=== PATIENT | female | born 1960 | race Asian ===

== ENCOUNTER → 2017-07-28 10:30 | Outpatient (CLI) | payer OTHER, SELFPAY ==
[2017-07-28 11:55] LABS: ALB/GLOB Ratio 0.9 RATIO (0.9-2.4); AST(SGOT) 23 U/L (15-37); Alanine Aminotransfer ALT/SGPT 24 U/L (13-56); Albumin, Serum 3.6 g/dL (3.2-5.0); Alkaline Phosphatase 65 U/L (45-117); Anion Gap 7 (5-15); BUN 11 mg/dL (7-18); Calcium,Total 8.7 mg/dL (8.5-10.1); Chloride 107 mmol/L (98-107); Cholesterol 189 mg/dL (200); Creatinine, Serum 0.84 mg/dL (0.55-1.02); EST Glomerular Filtration Rate 74 mL/min (>60); Est Glom Filt Rate - Afr Amer 90 mL/min (>60); Glucose 95 mg/dL (74-106); High Density Lipoprotein 69 mg/dL; Potassium 4.1 mmol/L (3.5-5.1); Protein, Total 7.6 g/dL (6.4-8.2); Sodium Level 144 mmol/L (136-145); Thyroid Stim Hormone (TSH) 1.06 uIU/mL (0.358-3.74); Triglycerides 95 mg/dL; Very Low Density Lipoprotein 19 mg/dL (5-40)
== END ==
PROVIDERS: Family Provider Family Medicine; PCP Family Medicine; Visit Provider Family Medicine
DX: E78.5 Hyperlipidemia, unspecified (principal); E89.0 Postprocedural hypothyroidism
CPT/HCPCS: 36415; 80053; 80061; 84443

== ENCOUNTER → 2018-03-18 13:19 | Outpatient (CLI) | payer OTHER, SELFPAY ==
[2018-03-18 10:37] VITALS: BMI 28.4
--- OUTSIDE RECORDS SUMMARY | 2018-05-13 17:49 | XMS RPT_ITS ---
:1960 Author Organization [facility] Care Team Providers Name Role Phone BROWN, ALLISON Attending Unavailable BROWN, ALLISON Primary Care Unavailable Brown, Allison Attending Unavailable Brown, Allison Referring Unavailable Brown, Allison Attending Unavailable Brown, Allison Referring Unavailable Brown, Allison Primary Care Unavailable Brijesh Contrerasongbe Attending Unavailable Brown, Allison Referring Unavailable Brown, Allison Primary Care Unavailable GarciaYuri MANAGER AUDIO-C Attending Unavailable Brown, Allison Referring Unavailable Brown, Allison Primary Care Unavailable Garcia, Yuri MANAGER AUDIO-C Attending Unavailable Brown, Allison Referring Unavailable GarciaYuri MANAGER AUDIO-C Attending Unavailable Garcia, Yuri MANAGER AUDIO-C Referring Unavailable Brown, Allison Primary Care Unavailable PROBLEMS PROBLEMS DATE TYPE CONDITION / CODE ATTENDING STATUS SOURCE 03/18/2018 Unknown J02.9 - Acute Yuri Garcia Active [place] pharyngitis, MANAGER AUDIO-C Community unspecified / Hospital J02.9(ICD-10) Repository 10/20/2017 Unknown N75.0 - Cyst of Oleghe, Active [place] Bartholin's gland [facility] / N75.0(ICD-10) Hospital Repository PROCEDURES PROCEDURES No Procedure Records FoundRESULTS RESULTS Observed: 03/18/2018 Status: F Source: [place] CULTURE, THROAT 1:30 PM [facility] REPOSITORY Culture, Throat Mixed normal throat mikaela. No Haemophilus, Streptococcus pneumoniae, beta-hemolytic Streptococcus or Staphylococcus aureus isolated. Performed By: #### M100.1000 #### [facility] [address], [address] INTERNAL MEDICINE Observed: 03/18/2018 Status: F Source: [place] OFFICE VISIT 11:35 AM [facility] REPOSITORY [facility] [address] [place] [address] OFFICE VISIT Date of Service: 03/18/18 MR#: [id number] Acct: [id number] Name: VIVIAN MONTESINOS Rep #: [id number] : 1960 Provider: Yuri Garcia NP Age/Sex: 57/F Location: [facility] Status: Signed Intake Vital Signs03/18/18 Height 5 ft 1 in 03/18/18 Weight: 150 lb 8 oz Intake Visit Reasons: ST Chief Complaint: Cough and sore throat Oil Heat Technician Required: No Accompanied by: None Is patient in pain?: No Allergies No Known Allergies Allergy (Unverified 07/28/17 09:29) Medications multivitamin tablet 1 tab PO QAM 07/28/17 [History Confirmed 07/28/17] simvastatin 10 mg tablet 10 mg PO QPM #90 tab 08/25/17 [Rx] cyanocobalamin (vitamin B-12) 2,500 mcg tablet 2,500 mcg PO QDAY 10/20/17 [History Confirmed 10/20/17] prednisone 10 mg tablet See Rx Instructions PO QDAY #30 tab 11/10/17 [Rx Confirmed 11/10/17] benzonatate 100 mg capsule 100 mg PO TID PRN #30 cap 03/18/18 [Rx Confirmed 03/18/18] fluticasone 50 mcg/actuation nasal spray,suspension 2 spray INTRANASAL DAILY #15.8 g 03/18/18 [Rx Confirmed 03/18/18] ibuprofen 600 mg tablet 600 mg PO TID PRN #30 tab 03/18/18 [Rx Confirmed 03/18/18] PFSH Medical History Hyperlipidemia (Chronic) Surgical History History of thyroidectomy, subtotal (Acute) Family History Father Hypertension Kidney disease Mother Lung cancer Uncle Liver cancer Brother Liver cancer Social History Smoking Status: Never smoker alcohol intake: current alcohol intake frequency: holidays/special occasions only substance use type: does not use what type of physical activity do you participate in: weight training frequency: daily HPI HPI Chief Complaint: Cough and sore throat Details: VVIIAN MONTESINOS, is a 57 F who presents to the office today for 3-day history of sore throat with nonproductive cough, nasal congestion and clear nasal discharge. She has a past medical history as listed above. Patient states that she has had nasal congestion for 3 days and progressed to a sore throat. She states that she has been using Advil for pain and discomfort with mild relief. She has been experiencing some chills for the last 3 days and is treated with Advil. She denies headache, dizziness or difficulty sleeping. She states her nasal discharge is clear. She denies any sick contacts. She denies any other aggravating or relieving factors. The patient otherwise denies any fever, chills, nausea, vomiting, shortness of breath, chest pain or pressure, palpitations, orthopnea, lower extremity edema, syncope or presyncopal episodes. ROS Const Constitutional: Positive for chills; no body ache, fatigue, fever(s), frequent falls, headache(s), weight change, sleep problems, change in appetite, snoring, excessive sweating, weakness or night sweats Eyes Eyes: No blurry vision, change in vision, eye pain or light sensitivity ENT ENT: Positive for nasal congestion, nasal discharge and sore throat; no headache(s), abnormal hearing, ear pain, tinnitus or neck pain Resp Respiratory: Positive for cough; no snoring, shortness of breath or wheezing Cardio Cardiology: No excessive sweating, chest pain at rest, chest pain with exertion, shortness of breath, dyspnea on exertion, orthopnea, palpitations or lightheadedness Gastro GI: No abdominal pain, change in bowel habits, diarrhea, constipation, vomiting, nausea/dyspepsia or cramping Genitourinary-Female: No difficulty urinating, burning urination, painful urination, urinary frequency, urinary urgency, urinary incontinence, blood in urine, urinary retention or urinary hesitancy Musc Musculoskeletal: No neck pain, abnormal walking, joint pain, back pain, limited range of motion, numbness, tingling or muscle weakness Skin Skin: No redness, dry skin, itching, lesions, wounds or rash Neuro Neurology: No frequent falls, headache(s), weakness, abnormal hearing, abnormal walking, numbness, tingling, abnormal speech, dizziness or memory loss Psych Psychiatric: No change in appetite, No memory loss, No anxiety, No depression, No Thoughts of harming yourself/Others Endo Endocrine: No fatigue, excessive sweating, cold intolerance, increased thirst/drinking, heat intolerance, increased hunger or flushing Aller/Imm Allergy/Immunologic: No wheezing, itchy eyes, seasonal allergy symptoms or hives Slava/Lymp Hematologic/Lymphatic: No easy bleeding, easy bruising or enlarged lymph nodes Exam Const General: cooperative, comfortable, no acute distress Nutritional Appearance: average body habitus, well nourished Orientation: alert, oriented x3 Limitations: mental status not altered HENMT Head: normal to inspection, normocephalic, atraumatic Ears: hearing grossly normal bilaterally, external ears normal, TM abnormal dull bilaterally, other (ear canals slightly erythematous) Nose: mucous membranes and turbinates abnormal (edematous) erythematous, external nose normal, nasal discharge clear Face and sinus: normal facial exam, sinuses nontender Mouth: oral mucosae normal Throat: posterior oropharynx abnormal edema and erythema; Negative for no exudates Eyes General: appearance normal, both eyes and all related structures Neck Neck: no lymphadenopathy Resp Effort AND Inspection: normal respiratory effort, able to speak in complete sentences, normal respiratory pattern, symmetric chest movement, no audible wheezes, no cough Auscultation: Bilateral: Clear to Auscultation Cardio Palpation: normal PMI Rate: regular rate Heart Sounds: S1 normal, S2 normal, normal S1 and S2, no click, no gallops, no murmurs, no rubs GI Inspection: normal to inspection Auscultation: normal bowel sounds, no hyperactive bowel sounds, no hypoactive bowel sounds Palpation: soft, no hepatosplenomegaly Musc Musculoskeletal: No joint tenderness, decreased ROM or muscle weakness Skin General: no rashes or lesions noted, elasticity normal, turgor normal Lesions: no lesions Rashes: no rashes Neuro General: alert, awake, oriented x3, CN's II-XI intact bilaterally Speech: speech normal Gait: normal gait Motor: muscle tone normal throughout Extrem General: normal to inspection, normal gait, no edema, no pedal edema Psych Appearance: grossly normal Mental Status: mental status grossly normal Affect: normal affect Attitude: cooperative Thought Process: normal Assessment AND Plan Problems 1. Acute pharyngitis J02.9 2. Cough R05 Plan Patient symptoms are consistent with that of acute viral pharyngitis. A rapid strep in the office today was negative. Will send backup culture for evaluation. Will treat supportively at this time with Tessalon for cough, Flonase for nasal congestion and ibuprofen for sore throat. Discussed increasing fluids and rest. Discussed hand hygiene and prevention of transmission of illness. Discussed red flag symptoms requiring urgent medical attention. Parison disclaimer Orders Orders: Medications New: Plan Detail Follow Up As previously scheduled or sooner Coding Level of Care Code Off vis,est,level 3 Diagnoses Acute pharyngitis J02.9 Cough R05 03/18/18 1135 <Electronically signed by Yuri SANCHEZ> Date Yuri SANCHEZ Cosigner Signature: Date (if applicable) CC: INTERNAL MEDICINE Observed: 11/10/2017 Status: F Source: [place] OFFICE VISIT 3:17 PM [facility] [address] [address] OFFICE VISIT Date of Service: 11/10/17 MR#: [id number] Acct: [id number] Name: VIVIAN MONTESINOS Rep #: [id number] : 1960 Provider: Yuri Garcia NP Age/Sex: 57/F Location[place] [facility] Status: Signed Intake Vital Signs11/10/17 Height 5 ft 1 in 11/10/17 Weight: 153 lb 2 oz Intake Visit Reasons: ITCHING, THINKS ALLERGIC REACTION TO SOMETHING Chief Complaint: Itching, allergies, rash Oil Heat Technician Required: No Accompanied by: None Is patient in pain?: No Allergies No Known Allergies Allergy (Unverified 07/28/17 09:29) Medications multivitamin tablet 1 tab PO QAM 07/28/17 [History Confirmed 07/28/17] simvastatin 10 mg tablet 10 mg PO QPM #90 tab 08/25/17 [Rx] cyanocobalamin (vitamin B-12) 2,500 mcg tablet 2,500 mcg PO QDAY 10/20/17 [History Confirmed 10/20/17] prednisone 10 mg tablet See Label Instructions PO QDAY #30 tab 11/10/17 [Rx Confirmed 11/10/17] PFSH Medical History Hyperlipidemia (Chronic) Surgical History History of thyroidectomy, subtotal (Acute) Family History Father Hypertension Kidney disease Mother Lung cancer Uncle Liver cancer Brother Liver cancer Social History Smoking Status: Never smoker alcohol intake: current alcohol intake frequency: holidays/special occasions only substance use type: does not use what type of physical activity do you participate in: weight training frequency: daily HPI HPI Chief Complaint: Itching, allergies, rash Details: VIVIAN MONTESINOS, is a 57 F who presents to the office today for an acute visit of allergies and rash 5-6 days but is progressively worsening. She is a past medical history as listed above. The patient notes that she was out gardening about a week ago and shortly after noted a diffuse rash that started on her bilateral legs and is now on her chest and left upper arm. She describes the rash as itching. She states that she has used avhw-cle-zxhxvld IV dry with mild relief. She also states that she has taken Benadryl at night and this is helped somewhat with the itching. However she states that the rash is progressively worsening. She does also note that she has some nasal discharge clear and itchy eyes at time as well. She also notes that she is getting over a sore throat and cough as well. She denies any sick contacts and denies any other aggravating or relieving factors. She otherwise denies any fever, chills, nausea, vomiting, shortness of breath, chest pain or pressure, syncope or presyncopal episodes. ROS Const Constitutional: No body ache, chills, fatigue, fever(s), frequent falls, headache(s), weight change, sleep problems, change in appetite, snoring, excessive sweating or weakness Eyes Eyes: No blurry vision, change in vision, eye pain or light sensitivity ENT ENT: Positive for nasal discharge and sore throat; no headache(s), abnormal hearing, ear pain, tinnitus, nasal congestion or neck pain Resp Respiratory: Positive for cough; no snoring, shortness of breath or wheezing Cardio Cardiology: No excessive sweating, chest pain at rest, chest pain with exertion, shortness of breath, dyspnea on exertion, orthopnea, palpitations or lightheadedness Gastro GI: No abdominal pain, change in bowel habits, diarrhea, constipation, vomiting, nausea/dyspepsia or cramping Genitourinary-Female: No difficulty urinating, burning urination, painful urination, urinary frequency, urinary urgency, urinary incontinence, blood in urine, urinary retention or urinary hesitancy Musc Musculoskeletal: No neck pain, abnormal walking, joint pain, back pain, limited range of motion, numbness or tingling Skin Skin: Positive for itching and rash; no redness, dry skin, lesions or wounds Neuro Neurology: No frequent falls, headache(s), weakness, abnormal hearing, abnormal walking, numbness, tingling, abnormal speech, dizziness or memory loss Psych Psychiatric: No change in appetite, No memory loss, No anxiety, No depression, No Thoughts of harming yourself/Others Endo Endocrine: No fatigue, excessive sweating, cold intolerance, increased thirst/drinking, heat intolerance, increased hunger or flushing Aller/Imm Allergy/Immunologic: Positive for itchy eyes and seasonal allergy symptoms; no wheezing or hives Slava/Lymp Hematologic/Lymphatic: No easy bleeding, easy bruising or enlarged lymph nodes Exam Const General: cooperative, comfortable, no acute distress Nutritional Appearance: average body habitus, well nourished Orientation: alert, oriented x3 Limitations: mental status not altered HENMT Nose: mucous membranes and turbinates abnormal erythematous Resp Effort AND Inspection: normal respiratory effort, able to speak in complete sentences, normal respiratory pattern, symmetric chest movement, no audible wheezes, no cough Auscultation: Bilateral: Clear to Auscultation Cardio Palpation: normal PMI Rate: regular rate Heart Sounds: S1 normal, S2 normal, normal S1 and S2, no click, no gallops, no murmurs, no rubs Skin Other: Diffuse clusters of fluid-filled vesicles consistent with that of poison ebenezer dermatitis present bilateral posterior lower extremities and left upper extremity and chest, no signs of secondary infection at this time. Visible scratch holliday surrounding sites present as well. Extrem General: normal to inspection, normal gait, no edema, no pedal edema Psych Appearance: grossly normal Mental Status: mental status grossly normal Affect: normal affect Attitude: cooperative Thought Process: normal Assessment AND Plan Problems 1. 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 Allergic rhinitis J30.9 Plan The patient's symptoms are consistent with that of poison ebenezer dermatitis. Patient instructed that she may continue with her zbnd-trt-qlwycks IV dry that she purchased, patient will be treated with tapering dose of prednisone. Discussed continue with Benadryl at night as this will make her tired and taking a nondrowsy antihistamine such as Claritin in the morning. Did discuss on how to take the prednisone and potential side effects of the medication. Patient verbalized understanding. Did instruct with antihistamines this will help improve her allergic rhinitis as well. Discussed with patient to follow-up with our office if her condition progresses or worsens. Did discuss red flag signs and symptoms that require urgent medical attention patient verbalized understanding. Isaias disclaimer Medications New: prednisone 4 tabs for 3 days, then 3 tabs for 3 days, then 2 tabs for 3 days, then 1 tab f or 3 days PO QDAY; administer with food or milk Coding Level of Care Code Off vis,est,level 3 Diagnoses Poison ebenezer dermatitis L23.7 Allergic rhinitis J30.9 11/10/17 1517 <Electronically signed by Yuri SANCHEZ> Date Yuri SANCHEZ Cosigner Signature: Date (if applicable) CC: INTERNAL MEDICINE Observed: 10/23/2017 Status: F Source: [place] OFFICE VISIT 12:43 PM [facility] [address] [place] [address] [address] [place] [address] OFFICE VISIT Date of Service: 10/20/17 MR#: [id number] Acct: [id number] Name: VIVIAN MONTESINOS Rep #: [id number] : 1960 Provider: Kye Contreras MD Age/Sex: 57/F Location: [facility] Status: Signed Intake Vital Signs10/20/17 Height 5 ft 1 in Intake Visit Reasons: acute visit, vaginal lesion Chief Complaint: Vaginal swelling. Is patient in pain?: No Allergies No Known Allergies Allergy (Unverified 07/28/17 09:29) Medications multivitamin tablet 1 tab PO QAM 07/28/17 [History Confirmed 07/28/17] simvastatin 10 mg tablet 10 mg PO QPM #90 tab 08/25/17 [Rx] cyanocobalamin (vitamin B-12) 2,500 mcg tablet 2,500 mcg PO QDAY 10/20/17 [History Confirmed 10/20/17] PFSH Medical History Hyperlipidemia (Chronic) Surgical History History of thyroidectomy, subtotal (Acute) Family History Father Hypertension Kidney disease Mother Lung cancer Uncle Liver cancer Brother Liver cancer Social History Smoking Status: Never smoker alcohol intake: current alcohol intake frequency: holidays/special occasions only substance use type: does not use what type of physical activity do you participate in: weight training frequency: daily HPI HPI Chief Complaint: Vaginal swelling. Details: VIVIAN MONTESINOS, is a 57yo F who presents to the office today due to right sided vaginal swelling noted about 3 weeks ago. She denies any significant pain/ discomfort or vaginal discharge. ROS Const Constitutional: No weight change, body ache, chills, fatigue, sleep problems, fever(s), change in appetite, snoring, weakness, frequent falls, headache(s) or excessive sweating Eyes Eyes: No change in vision, eye pain, light sensitivity or blurry vision ENT ENT: No headache(s), abnormal hearing, ear pain, tinnitus, nasal congestion, sore throat or neck pain Resp Respiratory: No snoring, cough, shortness of breath or wheezing Cardio Cardiology: No excessive sweating, chest pain at rest, chest pain with exertion, shortness of breath, dyspnea on exertion, palpitations, orthopnea or lightheadedness Gastro GI: No abdominal pain, change in bowel habits, constipation, diarrhea, vomiting, nausea/dyspepsia or cramping Genitourinary-Female: Positive for other (vaginal bump); no burning urination, painful urination, urinary incontinence, urinary frequency, abnormal vaginal bleeding or pelvic pain Musc Musculoskeletal: No neck pain, abnormal walking, joint pain, back pain, limited range of motion, numbness or tingling Skin Skin: No redness, dry skin, itching, lesions, wounds or rash Neuro Neurology: No weakness, frequent falls, headache(s), abnormal hearing, abnormal walking, numbness, tingling, abnormal speech, dizziness or memory loss Psych Psychiatric: No change in appetite, No memory loss, No anxiety, No depression, No Thoughts of harming yourself/Others Endo Endocrine: No fatigue, excessive sweating, cold intolerance, increased thirst/drinking, heat intolerance, flushing or increased hunger Aller/Imm Allergy/Immunologic: No wheezing, itchy eyes, hives or seasonal allergy symptoms Slava/Lymp Hematologic/Lymphatic: No easy bleeding, easy bruising or enlarged lymph nodes Exam Const General: cooperative, no acute distress Orientation: alert, awake, oriented x3 HENIN Head: atraumatic, normocephalic Ears: hearing grossly normal bilaterally Resp Effort AND Inspection: normal respiratory effort, able to speak in complete sentences Auscultation: Bilateral: Clear to Auscultation Cardio Rate: regular rate Rhythm: regular rhythm Heart Sounds: S1 normal, S2 normal Other: Right sided firm vaginal swelling. Non tender. Neuro General: alert, awake, oriented x3, moves all extremities, CN's II-XI intact bilaterally Extrem General: no clubbing, cyanosis or edema Psych Appearance: grossly normal Mood: congruent mood Affect: normal affect Assessment AND Plan 1. Bartholin gland cyst N75.0 Plan Does not appear infected. Also said to be improving per patient. Sitz bath and warm compresses. Refer to Spa Assistant Manager. Orders Referrals: Coding Level of Care Code Off vis,est,level 3 Diagnoses Bartholin gland cyst N75.0 10/23/17 1243 <Electronically signed by Kye Contreras MD> Date Kye Contreras MD Cosigner Signature: Date (if applicable) CC: KATIE MAMMOGRAM SCREENING Observed: 08/11/2017 Status: F Source: [facility] W/[facility]ANNA[facility] 4:00 PM F[facility]ATION REPOSITORY ORIGINAL FROM: [place] [id number] PROCEDURE FOR: VIVIAN MONTESINOS [address] [facility] [place] [address] Home: PID#: [id number] Exam#: [id number] : 1960 Age: 57 TO: ALLISON ORO DO [address] [place], [place] [address] #[id number] DIGITAL SCREENING MAMMOGRAM 3D/2D WITH CAD WITH MEDIOLATERAL OBLIQUE CRANIOCAUDAL: 08/11/2017 Comparison is made to exams dated: 07/09/2016 mammogram and 04/15/2013 mammogram - [facility]. There are scattered fibroglandular elements in both breasts. Current study was also evaluated with a Computer Aided Detection (CAD) system. No significant masses, calcifications, or other findings are seen in either breast. There has been no significant interval change. IMPRESSION: NEGATIVE There is no mammographic evidence of malignancy. A 1 year screening mammogram is recommended. HARIS BOYD MD cc/penrad:08/12/2017 16:20:36 It Account Manager: SIMON BRADSHAW (R)(M), [facility] letter sent: Normal BI-RADS 1&2 Mammogram BI-RADS: 1 Negative INTERNAL MEDICINE Observed: 07/28/2017 Status: F Source: [place] OFFICE VISIT 12:24 PM [facility] [address] [place] [address] OFFICE VISIT Date of Service: 07/28/17 MR#: [id number] Acct: [id number] Name: VIVIAN MONTESINOS Rep #: [id number] : 1960 Provider: Allison Oro DO Age/Sex: 57/F Location[place] [facility] [place] Status: Signed Intake Vital Signs07/28/17 Height 5 ft 1 in 07/28/17 Weight: 158 lb 07/28/17 Body Mass Index (BMI) 29.8 07/28/17 Blood Pressure 114/77 Intake Visit Reasons: EST Chief Complaint: Inject finger, AND Pap Is patient in pain?: No Allergies No Known Allergies Allergy (Unverified 07/28/17 09:29) Medications multivitamin tablet 1 tab PO QAM 07/28/17 [History Confirmed 07/28/17] simvastatin 10 mg tablet 10 mg PO QPM 07/28/17 [History Confirmed 07/28/17] Post menopausal: Yes PFSH Medical History Hyperlipidemia (Chronic) Surgical History History of thyroidectomy, subtotal (Acute) Family History Father Hypertension Kidney disease Mother Lung cancer Uncle Liver cancer Brother Liver cancer Social History Smoking Status: Never smoker alcohol intake: current alcohol intake frequency: holidays/special occasions only substance use type: does not use what type of physical activity do you participate in: weight training frequency: daily HPI HPI Chief Complaint: Inject finger, AND Pap Details: VIVIAN MONTESINOS, is a 57 F who presents to the office today for a pap smear, and also for an injection of a right trigger finger. I explained that she does not need a pap smear as it has been only two years for ROS Const Constitutional: No anorexia, body ache, chills, fever(s), decreased energy, malaise, night sweats, weight change, sleep problems, other, snoring, weakness, frequent falls, headache(s), abnormal sleep pattern, change in appetite, excessive sweating or fatigue Eyes Eyes: No blurry vision, change in vision, double vision, discharge, dry eyes, bulging eyes, floaters, eye pain, light sensitivity, spots in vision, tunnel vision, other or visual disturbances ENT ENT: Positive for sore throat; no ear pain, ear discharge, ear pressure, hearing loss, tinnitus, dizziness/vertigo, balance problems, nosebleed/epistaxis, nasal congestion, nasal obstruction, nose pain, sinus pressure, sinus pain, nasal discharge, post nasal drip, facial pain, dental pain, dry mouth, bad breath, hoarseness, mouth lesions, mouth pain, difficulty swallowing, neck pain, abnormal hearing, headache(s), other, lip swelling, throat swelling or tongue swelling Resp Respiratory: No cough, change in phlegm color, chest congestion, excessive phlegm production, hemoptysis, pain on inspiration, shortness of breath, pain with cough, snoring, stridor, other or wheezing Cardio Cardiology: No chest pain at rest, chest pain with exertion, leg pain with exertion, shortness of breath, dyspnea on exertion, generalized swelling, irregular heart rhythm, lightheadedness, orthopnea, radiating jaw, neck or arm pain, fast heart rate, slow heart rate, palpitations, other or excessive sweating Gastro GI: No abdominal pain, belching, bloating, change in bowel habits, change in stool character, coffee ground emesis, constipation, cramping, diarrhea, heartburn, difficulty swallowing, feeling full early, excessive flatus, incontinent of stools, Vomiting blood/hematemesis, blood in stool, loose stools, Black,tarry stools, nausea/dyspepsia, pain with swallowing, vomiting or other Genitourinary-Female: No difficulty urinating, burning urination, painful urination, urinary incontinence, urinary frequency, urinary urgency, urinary hesitancy, urinary retention, blood in urine, Frequent nighttime urination/ nocturia, post void dribbling, suprapubic fullness, side pain, sexual problems, genital lesions, genital itching, hot flashes, abnormal periods, abnormal vaginal bleeding, absent period, painful periods, light periods, heavy periods, difficulty getting , painful intercourse, pelvic pain, vaginal dryness, vaginal odor, Vaginal Itching or other Musc Musculoskeletal: Positive for joint swelling (Left wrist, AND Rt 3rd finger); no joint pain, back pain, deformity, limited range of motion, loss of height, muscle cramps, muscle weakness, decreased muscle mass, body aches, neck pain, radiating pain into limb, stiffness, other, abnormal walking, numbness or tingling Skin Skin: Positive for lesions (Brown patches Lt ankle); no acne, hair loss, change in hair, nail changes, boil, change in skin color, dry skin, redness, excessive hair growth, yellowing of the skin, rash, skin pain, skin ulcer, sores, skin swelling, wounds, other or itching Breast Breast: No change in breast shape, breast lump, breast pain, breast skin changes, breast swelling, nipple discharge or other Neuro Neurology: No abnormal walking, abnormal hearing, abnormal movements, abnormal speech, unsteady gait/balance, dizziness, weakness, frequent falls, headache(s), lack of coordination, loss of vision, numbness, tingling, visual disturbances, restless legs, fainting, tremor(s), other, behavioral changes, confusion or memory loss Psych Psychiatric: No abnormal sleep pattern, No lack of enjoyment, No anxiety, No behavioral changes, No change in appetite, No confusion, No depression, No difficulty concentrating, No hopelessness, No irritability, No memory loss, No mood swings, No panic attacks, No paranoia, No Thoughts of harming yourself/Others, No hallucinations, No other Endo Endocrine: No change in body appearance, cold intolerance, excessive sweating, fatigue, flushing, heat intolerance, increased thirst/drinking, increased hunger, increased urination or other Aller/Imm Allergy/Immunologic: No food intolerance, itchy eyes, lip swelling, seasonal allergy symptoms, throat swelling, tongue swelling, hives, wheezing or other Slava/Lymp Hematologic/Lymphatic: No easy bleeding, easy bruising, enlarged lymph nodes or other Exam Const General: cooperative, healthy appearing, no acute distress Resp Effort AND Inspection: normal respiratory effort Auscultation: Bilateral: Clear to Auscultation Cardio Palpation: normal PMI Rate: regular rate Rhythm: regular rhythm Musc Musculoskeletal: No muscle weakness Skin General: no rashes or lesions noted Hair: normal Nails: normal Extrem Other: locking finger of the right middle finger Office Procedures Office Injections/Aspirations Procedure Detail Procedure performed by: Allison Oro Dose of injection: 0.25 ml of kenalog and 0.25 ml of !% xylocaine Ortho Injection Site: Yes Medication Given: Yes Ortho Injections/Aspirations Yes Trigger Finger Injection Right Details: Trigger finger inject of right middle finger prox. fracisco Assessment AND Plan Problems 1. Trigger finger of right hand M65.30 2. Hyperlipidemia E78.5 3. History of thyroid surgery Z98.890 Plan This patient came to the office for routine checkup she thought she needed a Pap smear but it is only been 2 years since her last Pap smear so I told her it was not needed at this time. Her basic complaint other than that was she needed to check up on her lipids she was concerned about her thyroid since she has had a subtotal thyroidectomy and she had a trigger finger on her right hand. Trigger finger was injected appropriate labs were ordered I will contact her with the results when they return to me. 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 LAB L501.1000 7-18 mg/dL Normal BUN 11 LAB L501.1100 0.55-1.02 mg/dL Normal CREAT,SERUM 0.84 Result Comment: The validity of the calculated GFR AND GFRAA in patients over 70 years has not been determined. Clinical correlation is essential. LAB L501.1110 >60 mL/min Normal EST GFR 74 Result Comment: Non- GFR Calc LAB L501.1115 >60 mL/min Normal EST GFR - AA 90 Result Comment: GFR Calc LAB L501.1300 10-20 RATIO Normal BUN/CRE 13.0 LAB L501.1500 6.4-8.2 g/dL T Normal PROT 7.6 LAB L501.1800 3.2-5.0 g/dL Normal ALB 3.6 LAB L501.1950 2.2-4.2 g/dL Normal GLOB 4.0 LAB L501.2000 0.9-2.4 RATIO Normal A/G 0.9 LAB L501.2200 8.5-10.1 mg/dL CA Normal 8.7 LAB L501.4100 15-37 U/L Normal AST 23 LAB L501.4305 45-117 U/L Normal ALK P 65 LAB L501.4405 13-56 U/L Normal ALT 24 Result Comment: Please note revised ALT reference range effective 2017. LAB L501.4600 0.20-1.00 mg/dL Normal T BILI 0.60 LAB L501.5300 136-145 mmol/L Normal NA 144 LAB L501.5600 3.5-5.1 mmol/L Normal K 4.1 LAB L501.5900 98-107 mmol/L Normal CL 107 LAB L501.6100 21.0-32.0 mmol/L Normal CO2 30.0 LAB L501.6200 5-15 Normal GAP 7 Performed By: #### L500.4050, L500.4100, L501.9520 #### [facility] [address] [place], [place], [address] LIPID PROFILE Collected: 07/28/2017 Status: F Source: POT[place]AM 10:44 AM [facility] REPOSITORY TYPE CODE TESTS RESULT OUT OF RANGE REFERENCE UNITS LAB L501.4900 200 mg/dL Normal CHOL 189 Result Comment: <200 mg/dL Desirable 200-240 mg/dL Borderline >240 mg/dL High Risk LAB L501.5000 mg/dL Normal TRIG 95 Result Comment: The drugs N-Acetylcysteine and Metamizole may falsely depress this assay. Serum Triglycerides Reference Interval Normal <150 mg/dL Borderline high 150 - 199 mg/dL High 200 - 499 mg/dL Very High > or = 500 mg/dL LAB L501.6400 mg/dL Normal HDL 69 Result Comment: The drugs N-Acetylcysteine and Metamizole may falsely depress this assay. Reference Range HDL <40 mg/dL Low HDL Cholesterol HDL >or= 60 mg/dL High HDL Cholesterol LAB L501.6500 0-130 mg/dL Normal LDL 101 LAB L501.6600 5-40 mg/dL Normal VLDL 19 Performed By: #### L500.4050, L500.4100, L501.9520 #### [facility] [address] [place], [place], [address] THYROID STIM HORMONE Collected: 07/28/2017 Status: F Source: [place] (TSH) 10:44 AM [facility] REPOSITORY TYPE CODE TESTS RESULT OUT OF RANGE REFERENCE UNITS LAB L501.9520 0.358-3.74 uIU/mL Normal TSH 1.06 Performed By: #### L500.4050, L500.4100, L501.9520 #### [facility] [address] [place], [address] ALLERGIES ALLERGIES DATE TYPE / CODE NAME / CODE REACTION SEVERITY SOURCE 07/28/2017 Drug No Known Unknown [facility] Allergy/4160 Allergies/F00 Hospital 04527(SNOMED 2587968(RXNOR Repository CT) M) ENCOUNTERS ENCOUNTERS ADMIT/DISCHARGE ACCOUNT NUMBER ADMITTING ENCOUNTER LOCATION SOURCE CLASS 03/18/2018 [id number] Ambulatory [facility] ding:LABSPEC Repository 03/18/2018/03/18/20 [id number] Ambulatory BMSBuilding: [place] 18 BMS.[facility] Repository 11/10/2017/11/11/19 [id number] Ambulatory BMSBuilding: [place] 18 BMS.[facility] Repository 10/20/2017/10/21/19 [id number] Ambulatory BMSBuilding: [place] 18 BMS.[facility] Repository 08/11/2017/08/12/19 [id number] Ambulatory [address] ding:RAD Foundation Repository 07/28/2017 [id number] Ambulatory [facility] ding:LAB Repository 07/28/2017/07/29/19 [id number] Ambulatory BMSBuilding: [place] 18 BMS.[facility] Repository PAYERS PAYERS ENCOUNTER GUARANTOR PAYER SUBSCRIBER SOURCE 03/18/2018 SONE Primary VIENGKEO ANGIE [place] [id number] Insurance:STANDARD SOUVANNAVONGDOB: [facility] [employer] ACCIDENTPolicy [id number] [place] Number: Repository [address]Ltd: [phone]) [id number] [phone] () Date:[id number] MARIKA RASMUSSEN [address]OD: 03/18/2018 Secondary NOT GIVENUNK [place] Insurance:SELF PAY [facility] Number: Effective Repository Date:2018-03-18 03/18/2018 SONE Primary MARLENIKEO ANGIE [place] [id number] Insurance:STANDARD SOUVANNAVONGDOB: [place] [facility] [id number] [place] Number: Repository [address]Tdl: 330 [id number] [phone] (HP) Date:[id number] [address]JOAJRHCMS ROBIN [address]SF: 03/18/2018 Secondary NOT GIVENUNK [place] Insurance:SELF PAY [facility] Number: Effective Repository Date:2018-03-18 11/10/2017 [facility] VIVIAN ANGIE [place] [id number] Insurance:MEDICAL SOUVANNAVONGDOB: [facility] [id number] [place] Number: Repository [address]Rkz: 330 [id number] [phone] (HP) Date:[id number] [address] [address]OU: 11/10/2017 Secondary NOT GIVENUNK [place] Insurance:SELF PAY [facility] Number: Effective Repository Date:2017-11-10 10/20/2017 [facility] VIVIAN ANGIE [place] [id number] Insurance:MEDICAL SOUVANNAVONGDOB: [facility] [id number] Number: Repository [id number]: 330 [id number] [phone] (HP) Date:[id number] [address] [address]IX: 10/20/2017 Secondary NOT GIVENUNK [place] Insurance:SELF PAY [facility] Number: Effective Repository Date:2017-10-13 08/11/2017 [facility] SOUVANNAVONGDOB: Insurance:MEDICAL SOUVANNAVONGDOB: [facility] [id number] [address] [id number] [place] [address] Number: [address] [place] [id number] [place], [place] [address]Vtm: (330) Date:2017-08-07 19324Whc: [id number] [phone] (HP)Tel: [phone] Name:O BOX () (WP) [address] [place] [address] [phone] (QC) 47[address]IT: 07/28/2017 SONE Primary [facility] [place] [id number] Insurance:MEDICAL SOUVANNAVONGDOB: [facility] [id number] [place] Number: Repository [id number]: 330 [id number] [phone] () Date:[id number] [address] [address]CH: 07/28/2017 Secondary NOT GIVENUNK [place] Insurance:SELF PAY [facility] Number: Effective Repository Date:2017-07-28 07/28/2017 SONE [facility] [place] [id number] Insurance:MEDICAL SOUVANNAVONGDOB: [facility] [id number] [place] Number: Repository [phone]: (330 [id number] [phone] () Date:[id number] [address]ZG: 07/28/2017 Secondary NOT GIVENUNK [place] Insurance:SELF PAY [facility] Number: Effective Repository Date:2017-07-28
== END ==
PROVIDERS: Family Provider Family Medicine; PCP Family Medicine; Referring Provider Nurse Practitioner Family; Visit Provider Nurse Practitioner Family
DX: J02.9 Acute pharyngitis, unspecified (principal)
CPT/HCPCS: 87070

== ENCOUNTER → 2018-09-02 | Outpatient (CLI) | payer BC, SELFPAY ==
[2018-09-02 09:06] VITALS: BMI 28.4
[2018-09-02 12:52] LABS: BUN 17 mg/dL (7-18); Creatinine, Serum 0.73 mg/dL (0.55-1.02); Glucose 86 mg/dL (74-106)
[2018-09-02 12:53] LABS: AST(SGOT) 21 U/L (15-37); Alanine Aminotransfer ALT/SGPT 20 U/L (13-56); Albumin, Serum 3.6 g/dL (3.2-5.0); Alkaline Phosphatase 68 U/L (45-117); Anion Gap 5 (5-15); BUN/Creat Ratio 23.3 RATIO (10-20); Calcium,Total 8.5 mg/dL (8.5-10.1); Chloride 109 mmol/L (98-107); Cholesterol 192 mg/dL (200); EST Glomerular Filtration Rate 87 mL/min (>60); Est Glom Filt Rate - Afr Amer 105 mL/min (>60); Globulin 3.7 g/dL (2.2-4.2); High Density Lipoprotein 69 mg/dL; Potassium 3.6 mmol/L (3.5-5.1); Protein, Total 7.3 g/dL (6.4-8.2); Sodium Level 142 mmol/L (136-145); Thyroid Stim Hormone (TSH) 1.09 uIU/mL (0.358-3.74); Triglycerides 76 mg/dL; Very Low Density Lipoprotein 15 mg/dL (5-40)
[2018-09-06 14:24] LABS: HPV Reflexed? NOT INDICATED
== END | disposition home or self-care (01) ==
LOC: BIMLAB 09:56
PROVIDERS: Family Provider Family Medicine; PCP Family Medicine; Visit Provider Family Medicine
DX: E78.5 Hyperlipidemia, unspecified (principal); I10 Essential (primary) hypertension; E89.0 Postprocedural hypothyroidism; N94.9 Unspecified condition associated with female genital organs and menstrual cycle
CPT/HCPCS: 36415; 80053; 80061; 84443; 88175; G0145

== ENCOUNTER → 2019-09-06 | Outpatient (CLI) | payer BC, SELFPAY ==
[2019-09-06 09:46] VITALS: BMI 28.4
[2019-09-06 13:26] LABS: ALB/GLOB Ratio 0.9 RATIO (0.9-2.4); AST(SGOT) 16 U/L (15-37); Alanine Aminotransfer ALT/SGPT 21 U/L (13-56); Albumin, Serum 3.4 g/dL (3.2-5.0); Alkaline Phosphatase 56 U/L (45-117); Anion Gap 7 (5-15); BUN 20 mg/dL (7-18); BUN/Creat Ratio 28.5 RATIO (10-20); Calcium,Total 8.7 mg/dL (8.5-10.1); Chloride 106 mmol/L (98-107); Cholesterol 201 mg/dL (200); EST Glomerular Filtration Rate 91 mL/min (>60); Est Glom Filt Rate - Afr Amer 110 mL/min (>60); Globulin 3.8 g/dL (2.2-4.2); Glucose 81 mg/dL (74-106); High Density Lipoprotein 76 mg/dL; Potassium 3.8 mmol/L (3.5-5.1); Protein, Total 7.2 g/dL (6.4-8.2); Sodium Level 142 mmol/L (136-145); Thyroid Stim Hormone (TSH) 0.71 uIU/mL (0.358-3.74); Triglycerides 91 mg/dL; Very Low Density Lipoprotein 18 mg/dL (5-40)
[2019-09-08 05:03] LABS: HPV HC, High Risk Negative (Negative)
[2019-09-09 00:32] LABS: HPV Reflexed? YES, CHARGE PATIENT
== END | disposition home or self-care (01) ==
PROVIDERS: PCP Family Medicine; Referring Provider Family Medicine; Visit Provider Family Medicine
DX: E89.0 Postprocedural hypothyroidism (principal); E78.5 Hyperlipidemia, unspecified
CPT/HCPCS: 80053; 80061; 84443; 87624; 88175; G0145

== ENCOUNTER → 2019-11-24 08:45 | Outpatient (CLI) | payer BC, SELFPAY ==
[2019-11-24 08:41] VITALS: BMI 28.4
--- NOTE | 2019-11-24 08:46 | RAD_ITS ---
STUDY: X-RAY - LEFT HAND REASON FOR EXAM: Chronic pain, no specific injury. TECHNIQUE: 3 view(s) of the hand. COMPARISON: None. FINDINGS: Normal radiocarpal articulation. Normal distal radioulnar joint. Normal visualized carpal bones. Normal carpal articulations Normal carpometacarpal articulation of the thumb. Normal second through fifth carpometacarpal joints. Normal metacarpi. Normal metacarpophalangeal joint of the thumb. Normal interphalangeal joint of the thumb. Normal proximal and distal phalanges of the thumb. Normal metacarpophalangeal joints of the second through fifth fingers. Normal proximal and distal interphalangeal joints of the second through fifth fingers. Normal phalanges of the second through fifth fingers. There is an ossicle at the ulnar styloid process. RAD/Hand Min 3 Views IMPRESSION: Ossicle at the ulnar styloid process. Otherwise, unremarkable x-ray examination of the left hand. Electronically Signed: Rich Phillip MD at 9:40 EDT Tel , Service support ,
--- NOTE | 2019-11-24 08:46 | RAD_ITS ---
STUDY: X-RAY - RIGHT HAND REASON FOR EXAM: Chronic pain, no specific injury. TECHNIQUE: 3 view(s) of the hand. COMPARISON: None. FINDINGS: Normal radiocarpal articulation. Normal distal radioulnar joint. Normal visualized carpal bones. Normal carpal articulations Normal carpometacarpal articulation of the thumb. Normal second through fifth carpometacarpal joints. Normal metacarpi. Normal metacarpophalangeal joint of the thumb. Normal interphalangeal joint of the thumb. Normal proximal and distal phalanges of the thumb. Normal metacarpophalangeal joints of the second through fifth fingers. Normal proximal and distal interphalangeal joints of the second through fifth fingers. There are small subchondral cysts in the fourth and fifth proximal phalangeal heads. The soft tissue structures are unremarkable. RAD/Hand Min 3 Views IMPRESSION: Small subchondral cysts in the fourth and fifth proximal phalangeal heads. Otherwise, unremarkable x-ray examination of the right hand. Electronically Signed: Rich Phillip MD at 9:49 EDT Tel , Service support ,
== END ==
PROVIDERS: PCP Family Medicine; Referring Provider Orthopaedic Surgery; Visit Provider Orthopaedic Surgery
DX: M25.531 Pain in right wrist (principal); M25.532 Pain in left wrist
CPT/HCPCS: 73130

== ENCOUNTER → 2020-04-25 | Outpatient (CLI) | payer BC, SELFPAY ==
[2020-04-25 08:07] VITALS: BMI 26.8
[2020-04-25 08:45] LABS: Bacteria 0 SEEN /hpf (None Seen); Mucous, Urine 0 SEEN /hpf (<or=2+)
[2020-04-25 13:04] LABS: Color, Urine Yellow (Yellow); Glucose, Dipstick Normal (Normal); Ketone-Dipstick Negative (Negative); Leukocyte Esterase-Dipstick 25 /ul (Negative); Nitrite-Dipstick Negative (Negative); Protein-Dipstick Negative (Negative); Specific Gravity, Urine 1.015 (1.002-1.030); Urine Bilirubin Dipstick Negative (Negative); Urine Clarity Clear (Clear); Urine Urobilinogen Normal (Normal)
[2020-04-25 13:55] LABS: Occult Blood-Urine Negative /ul (Negative)
[2020-04-25 14:30] LABS: Squamous Epithelial Cells - UA 0 SEEN /hpf (5-10); White Blood Cells 0-5 SEEN /hpf (0-5)
[2020-04-25 14:31] LABS: Red Blood Cells-Urine 0-5 SEEN /hpf (0-5)
== END | disposition home or self-care (01) ==
LOC: LABSPEC 08:44
PROVIDERS: PCP Family Medicine; Referring Provider Nurse Practitioner Family; Visit Provider Nurse Practitioner Family
DX: R31.9 Hematuria, unspecified (principal); N95.0 Postmenopausal bleeding
CPT/HCPCS: 81001; 87086

== ENCOUNTER → 2020-06-08 07:38 | Outpatient (CLI) | payer BC, SELFPAY ==
[2020-05-28 10:02] VITALS: BMI 27.3
--- NOTE | 2020-06-08 07:53 | US_ITS ---
STUDY: ULTRASOUND OF THE FEMALE PELVIS - COMPLETE REASON FOR EXAM: Female, 59 years old. pmb LMP: The patient is postmenopausal. TECHNIQUE: Transabdominal and Transvaginal TECHNICAL QUALITY: Adequate. COMPARISON: None. FINDINGS: The uterus is anteverted and is in a midline position. The uterus measures 6.8 cm x 4.4 cm x 3 cm. There is a Nabothian cyst of the cervix. The endometrium measures 2.3 mm in thickness, and is hyperechoic. There is no demonstrated endometrial mass. The uterus is heterogeneous echotexture. There is evidence of a fibroid measuring 1.8 cm x 2.4 cm x 1.5 cm. I.U.D. - The patient does not have an I.U.D. The right ovary is visualized. The right ovary measures 1.7 cm x 1.1 cm x 0.9 cm. There is no right ovarian cyst or ovarian mass. There is no visualized right adnexal mass or complex lesion. There is normal arterial and normal venous vascularity. The left ovary is visualized. The left ovary measures 3.6 cm x 2.6 cm x 1.2 cm. There is no left ovarian cyst or ovarian mass. There is no visualized left adnexal mass or complex lesion. There is normal arterial and normal venous vascularity. There is no fluid in the cul-de-sac. The pre void volume of the bladder was 63 ml. Polycystic ovary disease: No. US/Pelvic (Non ) IMPRESSION: Heterogeneous echotexture of the myometrium with a small uterine fibroid. Electronically Signed: Benjamin Mai MD at 9:59 EST , Service support ,
--- NOTE | 2020-06-08 07:53 | US_ITS ---
STUDY: ULTRASOUND OF THE FEMALE PELVIS - COMPLETE REASON FOR EXAM: Female, 59 years old. pmb LMP: The patient is postmenopausal. TECHNIQUE: Transabdominal and Transvaginal TECHNICAL QUALITY: Adequate. COMPARISON: None. FINDINGS: The uterus is anteverted and is in a midline position. The uterus measures 6.8 cm x 4.4 cm x 3 cm. There is a Nabothian cyst of the cervix. The endometrium measures 2.3 mm in thickness, and is hyperechoic. There is no demonstrated endometrial mass. The uterus is heterogeneous echotexture. There is evidence of a fibroid measuring 1.8 cm x 2.4 cm x 1.5 cm. I.U.D. - The patient does not have an I.U.D. The right ovary is visualized. The right ovary measures 1.7 cm x 1.1 cm x 0.9 cm. There is no right ovarian cyst or ovarian mass. There is no visualized right adnexal mass or complex lesion. There is normal arterial and normal venous vascularity. The left ovary is visualized. The left ovary measures 3.6 cm x 2.6 cm x 1.2 cm. There is no left ovarian cyst or ovarian mass. There is no visualized left adnexal mass or complex lesion. There is normal arterial and normal venous vascularity. There is no fluid in the cul-de-sac. The pre void volume of the bladder was 63 ml. Polycystic ovary disease: No. US/Transvaginal Non- IMPRESSION: Heterogeneous echotexture of the myometrium with a small uterine fibroid. Electronically Signed: Benjamin Mai MD at 9:59 EST , Service support ,
== END ==
PROVIDERS: PCP Family Medicine; Referring Provider Obstetrics & Gynecology; Visit Provider Obstetrics & Gynecology
DX: N95.0 Postmenopausal bleeding (principal)
CPT/HCPCS: 76830; 76856

== ENCOUNTER → 2020-10-17 10:11 | Outpatient (CLI) | payer BC, SELFPAY ==
[2020-10-17 09:38] VITALS: BMI 27.3
[2020-10-17 12:26] LABS: Basophil# 0.07 X10^3/uL; Basophil% 1.9 % (0-1); Eosinophil# 0.05 X10^3/uL; Eosinophils% 1.3 % (0-5); Hematocrit 39.5 % (37-47); Lymphocyte % 34.9 % (19-41); Mean Corp Hgb Conc 30.4 g/dL (32-36); Mean Corpuscular Hgb 20.9 pg (27.0-32.0); Mean Corpuscular Volume 68.8 fL (81-99); Monocyte# 0.31 X10^3/uL; Monocyte% 8.3 % (0-10); NRBC Flagged by Analyzer 0 % (0-5); Neutrophil % 53.6 % (47-70); Platelet Count 152 K/mm3 (150-450); RBC Distribution Width CV 15.7 % (11.6-14.6); RBC Distribution Width SD 37.7 fl (35.1-43.9); Red Blood Count 5.74 M/mm3 (4.2-5.4); White Blood Count 3.7 K/mm3 (4.4-11.0)
[2020-10-17 12:37] LABS: Vitamin D,25 Hydroxy 50.4 ng/mL
[2020-10-17 12:56] LABS: ALB/GLOB Ratio 0.9 RATIO (0.9-2.4); AST(SGOT) 20 U/L (15-37); Alanine Aminotransfer ALT/SGPT 23 U/L (13-56); Albumin, Serum 3.5 g/dL (3.2-5.0); Alkaline Phosphatase 60 U/L (45-117); Anion Gap 4 (5-15); BUN 14 mg/dL (7-18); BUN/Creat Ratio 17.8 RATIO (10-20); Calcium,Total 8.5 mg/dL (8.5-10.1); Chloride 106 mmol/L (98-107); Cholesterol 181 mg/dL (200); Creatinine, Serum 0.79 mg/dL (0.55-1.02); EST Glomerular Filtration Rate 79 mL/min (>60); Est Glom Filt Rate - Afr Amer 96 mL/min (>60); Globulin 3.7 g/dL (2.2-4.2); Glucose 88 mg/dL (74-106); High Density Lipoprotein 80 mg/dL; Potassium 4.1 mmol/L (3.5-5.1); Protein, Total 7.2 g/dL (6.4-8.2); Sodium Level 139 mmol/L (136-145); Thyroid Stim Hormone (TSH) 1.06 uIU/mL (0.358-3.74); Triglycerides 61 mg/dL; Very Low Density Lipoprotein 12 mg/dL (5-40)
== END ==
PROVIDERS: PCP Family Medicine; Referring Provider Nurse Practitioner Family; Visit Provider Nurse Practitioner Family
DX: Z00.00 Encounter for general adult medical examination without abnormal findings (principal); E78.5 Hyperlipidemia, unspecified; E55.9 Vitamin D deficiency, unspecified
CPT/HCPCS: 36415; 80053; 80061; 82306; 84443; 85025

== ENCOUNTER → 2020-10-18 08:02 | Outpatient (CLI) | payer BC, SELFPAY ==
[2020-10-17 09:38] VITALS: BMI 27.3
--- NOTE | 2020-10-18 08:03 | VDLE_ITS ---
Reason For Study: swelling Procedure LEFT This is a venous duplex using B-mode, color GSV is normal. flow and spectral Doppler. CFV is compressible, spontaneous, phasic, Exam performed in department. competent, and demonstrates normal The exam was abbreviated due to the COVID 19 augmentation. protocol. FV is compressible, spontaneous, phasic, The exam was diagnostic. competent and demonstrates normal A preliminary report was called and/or faxed augmentation. to Yuri Garcia. POP V is compressible, spontaneous, phasic, competent and demonstrates normal augmentation. T/P Trunk is compressible. PTV is compressible. LT PerV is compressible. VL/Venous Duplex US, Unilateral Interpretation Summary Deep veins of the left lower extremity are patent and compressible segmentally. There is no evidence of left lower extremity deep vein thrombosis. Valvular competence appears intac t within the proximal deep venous system on the left . The left great saphenous vein appears patent a nd compressible segmentally. Ordering Physician: Yuri Garcia Performed By: Thien Oneill RVT
== END ==
PROVIDERS: PCP Family Medicine; Referring Provider Nurse Practitioner Family; Visit Provider Nurse Practitioner Family
DX: M79.89 Other specified soft tissue disorders (principal)
CPT/HCPCS: 93971

== ENCOUNTER → 2021-03-08 08:02 | Outpatient (CLI) | payer BC, SELFPAY ==
[2021-03-08 12:37] LABS: Hematocrit 38.2 % (37-47); Hemoglobin 11.7 g/dL (12.0-15.0); Mean Corp Hgb Conc 30.6 g/dL (32-36); Mean Corpuscular Hgb 21.2 pg (27.0-32.0); Mean Corpuscular Volume 69.2 fL (81-99); Platelet Count 151 K/mm3 (150-450); RBC Distribution Width CV 15.6 % (11.6-14.6); RBC Distribution Width SD 38.2 fl (35.1-43.9); Red Blood Count 5.52 M/mm3 (4.2-5.4); White Blood Count 3.8 K/mm3 (4.4-11.0)
[2021-03-08 12:47] LABS: Scan Indicated on CBC? Y/N NO
[2021-03-08 13:08] LABS: Anion Gap 4 (5-15); BUN 18 mg/dL (7-18); BUN/Creat Ratio 24.8 RATIO (10-20); Chloride 108 mmol/L (98-107); Creatinine, Serum 0.72 mg/dL (0.55-1.02); EST Glomerular Filtration Rate 87 mL/min (>60); Est Glom Filt Rate - Afr Amer 106 mL/min (>60); Glucose 87 mg/dL (74-106); Potassium 3.8 mmol/L (3.5-5.1); Sodium Level 141 mmol/L (136-145); Thyroid Stim Hormone (TSH) 1.03 uIU/mL (0.358-3.74)
[2021-03-08 14:36] LABS: Ferritin 133 ng/mL (8-252); Iron 97 ug/dL (50-170); Iron Binding Capacity,Total 266 ug/dL (250-450); PERCENT IRON SATURATION 36.5 % (15.0-55.0)
== END ==
PROVIDERS: PCP Family Medicine; Referring Provider Nurse Practitioner Family; Visit Provider Nurse Practitioner Family
DX: R42 Dizziness and giddiness (principal); D53.9 Nutritional anemia, unspecified
CPT/HCPCS: 36415; 80048; 82728; 83540; 83550; 84443; 85027

== ENCOUNTER 2021-03-21 19:23 | Emergency (ER) | payer OTHER, BC, SELFPAY ==
[2021-03-21 19:26] VITALS: BP 139/88; PULSE 72; RESP 16; TEMP 36.6; O2SAT 98; BMI 26.9
--- NOTE | 2021-03-21 19:38 | RAD_ITS ---
INDICATION: trauma EXAMINATION/TECHNIQUE: X-RAY - RIGHT XR Tibia/Fibula 2 Views 3 VIEWS COMPARISON: None. FINDINGS: SOFT TISSUES: Abnormal soft tissue thickening posterior medial leg with soft tissue gas and heterogeneous soft tissue density. Note that this is somewhat obscured by overlying bandaging material. No radiopaque foreign body. BONES/JOINTS: No acute fracture or subluxation.. Normal alignment. Preservation of the joint space.. No sclerotic or destructive changes observed. Visualized portions of the knee are within normal limits. RAD/Tibia & Fibula 2 Views IMPRESSION: Significant soft tissue injury. No foreign body. No evidence of tibia or fibula osseous injury. Electronically Signed: Holden Gomez DO at 20:32 EST Tel , Service support ,
--- NOTE | 2021-03-21 19:40 | ED.VIS.LOWEX ---
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 Unsure of her last tetanus. Denies other injuries. No LOC. No head or neck pain. No chest or abdominal pain. Tetanus Immunization: Unknown Prior similar symptoms: No Recent Illness/Hospitalization: No PFSH PFSH Medical History BPPV (benign paroxysmal positional vertigo) Dizziness Hyperlipidemia Hyperlipidemia Preventative health care Swelling of left lower extremity Vitamin D insufficiency Home Medications multivitamin 1 tab PO QAM 07/28/17 [History Last Taken Unknown] compress.stocking,knee,reg,med #2 ea 05/11/18 [Rx Last Taken Unknown] ibuprofen 600 mg tablet 600 mg PO TID PRN #30 tab 07/15/19 [Rx Last Taken Unknown] triamcinolone acetonide 0.5 % topical cream 1 applic TOPICAL BID #454 g 11/01/19 [Rx Last Taken Unknown] simvastatin 10 mg tablet 10 mg PO QPM #90 tab 11/01/20 [Rx Last Taken Unknown] meclizine 12.5 mg tablet 12.5 mg PO BID PRN #30 tab 03/08/21 [Rx Last Taken Unknown] cephalexin 500 mg PO TID 10 Days #30 cap 03/21/21 [Rx Last Taken Unknown] hydrocodone-acetaminophen 1 tab PO Q4H PRN 5 Days #20 tab 03/21/21 [Rx Last Taken Unknown] Allergy/AdvReac Type Severity Reaction Status Date / Time No Known Allergies Allergy Verified 03/21/21 19:30 Family History Father Hypertension Kidney disease Mother Lung cancer Uncle Liver cancer Brother Liver cancer Surgical History H/O hand surgery History of thyroidectomy, subtotal Social History Smoking Status: Never smoker alcohol intake: current alcohol intake frequency: holidays/special occasions only substance use type: does not use caffeine: Yes what type of physical activity do you participate in: weight training frequency: daily seatbelt use: always do you feel safe at home: Yes additional social history: -Sone Patient works at [employer] ROS ED ROS Narrative Denies recent illness. Review of Systems ROS Unobtainable: Denies due to encephalopathy Constitutional Constitutional ED: Denies fever(s) Eyes Eyes: Denies change in vision ENT ENT ED: Denies ear pain Cardiovascular Cardiovascular: Denies chest pain Respiratory/Chest Respiratory/Chest: Denies dyspnea Gastrointestinal Gastrointestinal: Denies abdominal pain Genitourinary Genitourinary ED: Denies dysuria Musculoskeletal Musculoskeletal: Denies myalgias Integumentary Denies rash Neurologic Neurologic: Denies headache(s) Psychiatric Psychiatric: Denies depression Endocrine Endocrinology: Denies polyuria Hematologic/Lymphatic Hematologic/Lymphatic: Denies easy bruising Allergic/Immunologic Allergic/Immunologic ED: Denies urticaria EXAM Physical Exam Narrative Exam Narrative: Middle-aged female vital signs stable afebrile. HEENT exam unremarkable atraumatic. Pupils round reactive light. C-spine nontender. Trachea midline. Lungs clear to auscultation bilaterally. Heart regular rhythm rate about 70 no murmur. Chest were nontender. Abdomen soft nontender. Pelvic girdle intact. Extremities moves all 4. Both upper and left lower extremity are nontender normal range of motion with no signs of trauma neurovascular intact. Her right hip and knee are nontender. Her right foot is nontender neurovascularly intact with able to wiggle her toes touch sensation and cap refill. She has a strong DP pulse. The right tib-fib region on the medial anterior aspect there is a large foot long laceration with a gaping wound. Involves skin and subcu tissue, muscle and potentially the bone. Neurologically she is awake and alert with no focal motor deficits. She has normal touch sensation to her right foot she is able to wiggle her toes. She can do dorsi and plantar flexion with her ankle. GCS is 15. Const Vital Signs: 03/21/21 19:26 03/21/21 19:46 03/21/21 20:31 Temperature 98 F 98 F Temperature Source Oral Temporal Pulse Rate 72 78 Respiratory Rate 16 14 Blood Pressure 139/88 H 140/80 H 147/87 H Blood Pressure Mean 105 100 107 Blood Pressure Source Monitor Blood Pressure Position Supine Blood Pressure Location Right Arm Pulse Ox 98 99 98 Oxygen Delivery Method Room Air Room Air Room Air 03/21/21 21:10 03/21/21 22:12 Temperature Temperature Source Pulse Rate 84 Respiratory Rate Blood Pressure 135/77 H 125/72 H Blood Pressure Mean 96 89 Blood Pressure Source Blood Pressure Position Blood Pressure Location Pulse Ox 99 Oxygen Delivery Method Room Air Positive well nourished and well developed; Negative for obese, cachectic, contractures or unkempt General Appearance ED: well developed; Negative for unkempt, cachectic, contractures or NAD Nutritional Appearance: Negative for cachectic or obese HEENT Reports moist mucous membranes normocephalic and atraumatic; Negative for trauma or tenderness Eyes PERRL Neck full ROM and supple Thyroid: Negative for tender Chest Wall inspection of chest normal and palpation of chest normal Resp normal respiratory effort, no retractions and clear to auscultation bilaterally Auscultation: Negative for rales, rhonchi, wheezes or diminished lung sounds Cardio regular rate, regular rhythm, S1 normal heart sound, S2 normal heart sound and no murmurs GI non-tender, non-distended and no masses Auscultation: normoactive bowel sounds Palpation: soft; Negative for tender or guarding Back/Spine no CVA tenderness General Back: Negative for CVA tenderness Cervical Spine: Negative for cervical spine tenderness Thoracic Spine / Upper Back: Negative for thoracic spinal tenderness Lumbar Spine / Lower Back: Negative for lumbar spinal tenderness Extremity normal to inspection Extremity Narrative: Except right lower leg is a large open wound with involvement of the skin and subcu tissue and possibly bone. This will need washed out and closed in the OR. Right foot is neurovascularly intact. Neuro oriented x3 and moves all extremities Sensorium / Orientation: alert, oriented to person, oriented to place and oriented to time; Negative for orientation impaired, confused, lethargic or stuporous Motor Exam: strength 5/5 throughout Psych mental status grossly normal Appearance: Negative for unkempt Mood & Affect: Negative for anxious Skin No no wounds Skin Narrative: Open wound right lower leg. Lesions: no lesions Rashes: no rashes MDM MDM MDM Narrative Medical decision making narrative: Patient with a large open wound right lower leg. This will need to go to the OR be washed out. There may be an orthopedic injury. She has a good pulse still in the right foot. X-rays are being obtained. She will be given Ancef IV and tetanus. I will speak with orthopedics distribution center administrator. Patient is also being given morphine for pain and Zofran. Repeat exam I discussed test results with the patient and family. I have already spoken to Dr. William distribution center administrator for the bases come in and evaluate the patient and decide how he wants to treat and close this wound. Dr. William of orthopedics came and evaluated patient and reviewed her films and washed out the wound and repaired it in the emergency department. He will discharge her home with crutches and a walking boot. Keflex and pain medication. He is going to see her on Thursday. Lab Data Attestation: I reviewed the patient's lab results. Lab results narrative: CBC White count of 5. Hemoglobin 11.1. Platelets 145. Electrolytes potassium 3.4 gap is 6 BUN 19 creatinine 0.7 glucose 106. Labs: Laboratory Results - last 24 hr 03/21/21 03/21/21 19:46 19:46 WBC 5.0 RBC 5.31 Hgb 11.1 L Hct 36.1 L MCV 68.0 L MCH 20.9 L MCHC 30.7 L RDW Std Deviation 37.2 RDW Coeff of [place] 15.6 H Plt Count 145 L MPV TNP Immature Gran % (Auto) 0.200 Neut % (Auto) 46.7 L Lymph % (Auto) 41.4 H [place] % (Auto) 8.7 Eos % (Auto) 1.8 Baso % (Auto) 1.2 H Absolute Neuts (auto) 2.3 Absolute Lymphs (auto) 2.05 Nucleated RBC % 0 Sodium 140 Potassium 3.4 L Chloride 107 Carbon Dioxide 27.0 Anion Gap 6 BUN 19 H Creatinine 0.74 Estim Creat Clear Calc 58.80 Est GFR (MDRD) Af Amer 103 Est GFR (MDRD) Non-Af 85 BUN/Creatinine Ratio 25.7 H Glucose 106 Calcium 8.7 Radiography Diagnostic Testing: Clinical Impression(s) from Imaging Studies Tibia/Fibula X-Ray 03/21/21 19:38 IMPRESSION: Significant soft tissue injury. No foreign body. No evidence of tibia or fibula osseous injury. Electronically Signed: Holden Gomez DO at 20:32 EST Tel , Service support , Foot X-Ray 03/21/21 19:50 IMPRESSION: Incompletely visualized heterogeneous soft tissues suggesting soft tissue injury posterior, distal leg. Moderate degenerative changes and hallux valgus deformity first metatarsophalangeal joint. Otherwise normal foot. Electronically Signed: Holden Gomez DO at 20:30 EST Tel , Service support , Right tib-fib x-ray shows no obvious fracture or dislocation. 2 views interpreted by myself. Right foot x-ray 3 views shows no acute abnormality. No fracture or dislocation. Discharge Plan Triage Chief Complaint: Lower Extremity Injury ED Provider: Edmond Red Dx/Rx/DC Orders Clinical Impression: Open wound, lower leg Instructions: ED Laceration: All Closures Prescriptions: New cephalexin 500 mg capsule 500 mg PO TID 10 Days Qty: 30 RF: 0 hydrocodone-acetaminophen 5-325 mg tablet 1 tab PO Q4H PRN (Reason: pain) 5 Days Qty: 20 RF: 0 No Action multivitamin [Daily Multi-Vitamin] tablet 1 tab PO QAM RF: 0 (DME) compress.stocking,knee,reg,med misc See Dose Instructions .ROUTE .MEDSUPPLY Qty: 2 RF: 0 ibuprofen 600 mg tablet 600 mg PO TID PRN (Reason: pain) Qty: 30 RF: 0 triamcinolone acetonide 0.5 % cream 1 applic TOPICAL BID Qty: 454 RF: 1 meclizine 12.5 mg tablet 12.5 mg PO BID PRN (Reason: dizziness) Qty: 30 RF: 1 simvastatin 10 mg tablet 10 mg PO QPM Qty: 90 RF: 3 Primary Care Provider: Armando Oro Referrals: Armando Oro DO [Primary Care Provider] - Logan William DO [STAFF PHYSICIAN] - 3-5 Days Activity Restrictions/Additional Instructions: Ice and elevate your leg to decrease pain and swelling. [place] for severe pain. Motrin for pain and swelling. Keflex antibiotic 3 times a day to prevent infection. Call and follow-up with Dr. William on Thursday in his office. Call their office tomorrow to get the appointment set up. Off work till seen by him in follow-up. Disposition Disposition: Home, Self Care
[2021-03-21] MEDS: Ondansetron 4 MG/2 ML Vial IV (19:41)
[2021-03-21] MEDS: Morphine 4 MG/ML Syringe IV (19:42)
[2021-03-21 19:46] VITALS: BP 140/80; O2SAT 99
--- NOTE | 2021-03-21 19:50 | RAD_ITS ---
INDICATION: trauma EXAMINATION/TECHNIQUE: X-RAY - RIGHT XR Foot Min 3 Views 3 VIEWS COMPARISON: None. FINDINGS: SOFT TISSUES: Heterogeneous soft tissue density posterior distal leg, incompletely visualized. No foreign body visualized. No soft tissue abnormality involving the foot. BONES/JOINTS: There is moderately advanced degenerative changes first metatarsal-phalangeal joint with moderate hallux valgus deformity. No other significant degenerative joint changes. Normal alignment. No fracture or focal osseous lesion. No hindfoot coalition. RAD/Foot min 3 Views IMPRESSION: Incompletely visualized heterogeneous soft tissues suggesting soft tissue injury posterior, distal leg. Moderate degenerative changes and hallux valgus deformity first metatarsophalangeal joint. Otherwise normal foot. Electronically Signed: Holden Gomez DO at 20:30 EST Tel , Service support ,
[2021-03-21 20:01] LABS: Absolute Lymphocyte Count 2.05 X10^3/uL (0.83-4.51); Absolute Neutrophil Count 2.3 X10^3/uL (2.0-7.7); Basophil# 0.06 X10^3/uL; Basophil% 1.2 % (0-1); Eosinophil# 0.09 X10^3/uL; Eosinophils% 1.8 % (0-5); Hematocrit 36.1 % (37-47); Hemoglobin 11.1 g/dL (12.0-15.0); Lymphocyte # 2.05 X10^3/ul (0.83-4.51); Lymphocyte % 41.4 % (19-41); Mean Corp Hgb Conc 30.7 g/dL (32-36); Mean Corpuscular Hgb 20.9 pg (27.0-32.0); Monocyte# 0.43 X10^3/uL; Monocyte% 8.7 % (0-10); NRBC Flagged by Analyzer 0 % (0-5); Neutrophil # 2.31 X10^3/uL (2.7-7.7); Neutrophil % 46.7 % (47-70); Platelet Count 145 K/mm3 (150-450); RBC Distribution Width CV 15.6 % (11.6-14.6); RBC Distribution Width SD 37.2 fl (35.1-43.9); Red Blood Count 5.31 M/mm3 (4.2-5.4)
[2021-03-21 20:03] LABS: POSITIVE COUNT NO; POSITIVE DIFFERENTIAL NO; POSITIVE MORPHOLOGY NO
[2021-03-21 20:11] LABS: Anion Gap 6 (5-15); BUN 19 mg/dL (7-18); BUN/Creat Ratio 25.7 RATIO (10-20); Calcium,Total 8.7 mg/dL (8.5-10.1); Chloride 107 mmol/L (98-107); Creatinine, Serum 0.74 mg/dL (0.55-1.02); EST Glomerular Filtration Rate 85 mL/min (>60); Est Glom Filt Rate - Afr Amer 103 mL/min (>60); Glucose 106 mg/dL (74-106); Potassium 3.4 mmol/L (3.5-5.1); Sodium Level 140 mmol/L (136-145)
[2021-03-21] MEDS: Diphth,Pertuss(Acell),Tet Vac 0.5 ML Vial IM (20:11)
[2021-03-21] MEDS: Cefazolin 1 GM/50 ML BAG IV (20:12)
[2021-03-21 20:31] VITALS: BP 147/87; PULSE 78; RESP 14; TEMP 36.6; O2SAT 98; BMI 26.9
[2021-03-21 21:10] VITALS: BP 135/77
[2021-03-21] MEDS: Lidocaine 1% /Epi 1:100 (20ml) 20 ML Vial INFILT ×2 (21:22→21:23)
[2021-03-21] MEDS: Sodium Bicarbonate 50 MEQ/50 ML Vial IV (21:23)
[2021-03-21 22:12] VITALS: BP 125/72; PULSE 84; O2SAT 99
--- NOTE | 2021-03-21 22:40 | OP.PCM_ITS ---
Report of Operation Date of Procedure: 03/21/21 Description of Surgical Findings:: Preoperative diagnosis: Complex traumatic laceration right lower leg, 32 cm Postoperative diagnosis: Complex traumatic laceration right lower leg, 32 cm Procedure: Laceration repair 32 cm involving fascia, subcutaneous tissue, and skin Surgeon: Logan William DO Anesthesia: Local anesthetic only with 1% lidocaine 1: 100,000 epinephrine 30 cc buffered with 10 cc 8.4% sodium bicarb Complications: None apparent Estimated blood loss: 5 cc Packing / drains: None Implants: None Urine output: None Preoperative indications: This otherwise healthy 60-year-old female history of work-related injury with a total motor to right lower extremity. She stated a large complex laceration that was seen in the emergency department [facility] evening of 03/21/2021. I was consulted from emergency department. It was a layered closure of the wound as well as irrigation and debridement. The risks, benefits, alternatives procedure were reviewed with patient at length and she agreed to proceed. Description of procedure: I first anesthetized the skin and subcutaneous tissue with 30 cc 1% lidocaine with 141 100,000 epinephrine buffered with 10 cc of 8.4% sodium bicarb. I then thoroughly irrigated the wound with 1 L of normal saline solution. Devitalized tissue and subcutaneous layer as well as foreign debris material was debrided from the wound bed. I then irrigated with 1 L of diluted Betadine solution with normal saline. I then. The wound was performed with 500 cc normal saline. I prepped the overlying skin with Betadine solution. I then proceeded to perform a layered closure of the wound. Of note, there is significant degloving of the skin from the subcutaneous fatty layer especially medially throughout the majority of the wound. I first closed the fascia where grossly with 0 Vicryl suture reapproximating it to the tibial crest. I then turned my attention to the subcutaneous tissue which was reapproximated with 0 Vicryl suture. Due to the tension in the midportion of the wound, I placed 3 trauma sutures utilizing 0 Vicryl stitch to the skin. These were later removed during the procedure. I then sequentially placed buried 2-0 Vicryl suture to reapproximate the dermis. I placed several 3-0 nylon suture simple in nature reapproximating the skin. After tension free skin reapproximation was established, I supplemented the repair with surgical johny. The wound was completely closed at the time of the procedure with sutures and johny. The right leg was then cleansed with saline. Xeroform gauze was placed over the wound. A bulky compression dressing was applied with an Roman wrap over top. Patient was then placed in a cam walking boot. Patient tolerated procedure well without complication. Plan: Partial weightbearing right lower extremity with a cam boot. Maintain dressing until follow-up with me on 03/25/2021. Recommend to elevate the right lower extremity to avoid swelling. Okay to wiggle her toes. All questions answered to patient satisfaction. Prescription for Keflex was provided by the emergency room physician.
--- NOTE | 2021-03-21 22:40 | CONS.ORTHO ---
HPI Consult Data Date of Consult: 03/21/21 HPI Narrative HPI Narrative: VIVIAN MONTESINOS, is a 60 F who presents after a workplace injury to her right lower leg to [facility] emergency department earlier this evening. 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 Antibiotics and tetanus were administered by the emergency room physician. I was consulted for evaluation of a large laceration to her right lower leg. She denies numbness or tingling in her right lower extremity including the right foot. Denies any prior injury or problems with the right lower leg. [facility] Medical History BPPV (benign paroxysmal positional vertigo) Dizziness Hyperlipidemia Hyperlipidemia Preventative health care Swelling of left lower extremity Vitamin D insufficiency Home Medications multivitamin 1 tab PO QAM 07/28/17 [History Last Taken Unknown] compress.stocking,knee,reg,med #2 ea 05/11/18 [Rx Last Taken Unknown] ibuprofen 600 mg tablet 600 mg PO TID PRN #30 tab 07/15/19 [Rx Last Taken Unknown] triamcinolone acetonide 0.5 % topical cream 1 applic TOPICAL BID #454 g 11/01/19 [Rx Last Taken Unknown] simvastatin 10 mg tablet 10 mg PO QPM #90 tab 11/01/20 [Rx Last Taken Unknown] meclizine 12.5 mg tablet 12.5 mg PO BID PRN #30 tab 03/08/21 [Rx Last Taken Unknown] cephalexin 500 mg PO Q8H 10 Days #30 cap 03/21/21 [Rx Last Taken Unknown] hydrocodone-acetaminophen 1 tab PO Q4H PRN 5 Days #20 tab 03/21/21 [Rx Last Taken Unknown] Allergy/AdvReac Type Severity Reaction Status Date / Time No Known Allergies Allergy Verified 03/21/21 19:30 Family History Father Hypertension Kidney disease Mother Lung cancer Uncle Liver cancer Brother Liver cancer Surgical History H/O hand surgery History of thyroidectomy, subtotal Social History Smoking Status: Never smoker alcohol intake: current alcohol intake frequency: holidays/special occasions only substance use type: does not use caffeine: Yes what type of physical activity do you participate in: weight training frequency: daily seatbelt use: always do you feel safe at home: Yes additional social history: -Sone Patient works at [employer] Narrative 10 point review of systems obtained, negative unless otherwise noted in HPI. Vital Signs Vital Signs Vital Signs: 03/21/21 19:26 03/21/21 19:46 03/21/21 20:31 Temperature 98 F 98 F Temperature Source Oral Temporal Pulse Rate 72 78 Respiratory Rate 16 14 Blood Pressure 139/88 H 140/80 H 147/87 H Blood Pressure Mean 105 100 107 Blood Pressure Source Monitor Blood Pressure Position Supine Blood Pressure Location Right Arm Pulse Ox 98 99 98 Oxygen Delivery Method Room Air Room Air Room Air 03/21/21 21:10 03/21/21 22:12 Temperature Temperature Source Pulse Rate 84 Respiratory Rate Blood Pressure 135/77 H 125/72 H Blood Pressure Mean 96 89 Blood Pressure Source Blood Pressure Position Blood Pressure Location Pulse Ox 99 Oxygen Delivery Method Room Air Weight Weight: 138 lb Body Mass Index (BMI) 26.9 Physical Exam Narrative General -A&Ox3, NAD, appears stated age. Vital signs stable, afebrile. Respiratory -normal work of breathing, no intercostal retractions. CV -pulses regular, brisk capillary refill ?4 limbs. Abdomen-soft, nontender, nondistended. No guarding, rigidity, rebound tenderness. Musculoskeletal/neurologic -full range of motion nontender throughout bilateral upper extremities, left lower extremity with full sensation and strength in all dermatomes and myotomes. No midline cervical tenderness. Right lower extremity-nontender throughout the right knee and hip. There is a large oblique laceration with exposed tibia and deep posterior compartment musculature measuring approximately 32 cm. There are some debris noted in the subcutaneous tissue. There is some degloving of the skin from underlying subcutaneous fat noted especially medially. Skin edges appear to have brisk capillary refill and well perfused. Brisk capillary refill in the toes. Sensation intact light touch L3-S1 dermatomes. DF, PF, EHL intact. DP, PT 2+. Pelvis is stable, nontender. Lab / Micro Data Result Diagrams: 03/21/21 19:46 03/21/21 19:46 Labs: Laboratory Results - last 24 hr 03/21/21 19:46: WBC 5.0, RBC 5.31, Hgb 11.1 L, Hct 36.1 L, MCV 68.0 L, MCH 20.9 L, MCHC 30.7 L, RDW Std Deviation 37.2, RDW Coeff of [place] 15.6 H, Plt Count 145 L, MPV TNP, Immature Gran % (Auto) 0.200, Neut % (Auto) 46.7 L, Lymph % (Auto) 41.4 H, [place] % (Auto) 8.7, Eos % (Auto) 1.8, Baso % (Auto) 1.2 H, Absolute Neuts (auto) 2.3, Absolute Lymphs (auto) 2.05, Nucleated RBC % 0 03/21/21 19:46: Sodium 140, Potassium 3.4 L, Chloride 107, Carbon Dioxide 27.0, Anion Gap 6, BUN 19 H, Creatinine 0.74, Estim Creat Clear Calc 58.80, Est GFR (MDRD) Af Amer 103, Est GFR (MDRD) Non-Af 85, BUN/Creatinine Ratio 25.7 H, Glucose 106, Calcium 8.7 Radiology Impression Tibia/Fibula X-Ray 03/21/21 19:38 IMPRESSION: Significant soft tissue injury. No foreign body. No evidence of tibia or fibula osseous injury. Electronically Signed: Holden Gomez DO at 20:32 EST Tel , Service support , Foot X-Ray 03/21/21 19:50 IMPRESSION: Incompletely visualized heterogeneous soft tissues suggesting soft tissue injury posterior, distal leg. Moderate degenerative changes and hallux valgus deformity first metatarsophalangeal joint. Otherwise normal foot. Electronically Signed: Holden Gomez DO at 20:30 EST Tel , Service support , Assessment & Plan Assessment/Plan (1) Open wound, lower leg: PLAN: Complex laceration lateral lower leg, no fracture identified I recommended a thorough irrigation and debridement, layered closure to the wound. Informed consent obtained. Patient tolerated procedure well. See operative report to follow for full details.
[2021-03-21] MEDS: morphine 8 MG/ML Syringe IV (23:07)
[2021-03-21 23:19] VITALS: BP 127/81; PULSE 83; RESP 14; O2SAT 97
== END 2021-03-21 23:54 | disposition home or self-care (01) ==
PROVIDERS: Emergency Provider Emergency Medicine; PCP Family Medicine
DX: S81.811A Laceration without foreign body, right lower leg, initial encounter (principal); Z23 Encounter for immunization; W23.0XXA Caught, crushed, jammed, or pinched between moving objects, initial encounter; Y93.9 Activity, unspecified; Y92.89 Other specified places as the place of occurrence of the external cause; Y99.0 Civilian activity done for income or pay; E89.0 Postprocedural hypothyroidism; E78.5 Hyperlipidemia, unspecified; E55.9 Vitamin D deficiency, unspecified; Z79.899 Other long term (current) drug therapy
CPT/HCPCS: 13121; 13122 ×5; 73590; 73630; 80048; 85025; 90715; 96365; 96375; 96376; 99285; A4216; J2405

== ENCOUNTER 2021-03-22 18:28 | Emergency (ER) | payer OTHER, BC, SELFPAY ==
[2021-03-22 18:29] VITALS: BP 111/68; PULSE 87; RESP 16; TEMP 36.1; O2SAT 99; BMI 26.9
[2021-03-22 20:03] VITALS: BP 109/64; PULSE 70; RESP 16; O2SAT 98
[2021-03-22 20:56] VITALS: BP 115/74; PULSE 78; RESP 16; O2SAT 98
--- NOTE | 2021-03-22 20:57 | EDS_ITS ---
HPI History of Present Illness Chief Complaint: Wound Check Narrative Narrative: 60-year-old female with complex laceration to the right lower extremity which was sutured by Dr. William yesterday presenting for wound check. She states that it did bleed through her dressing. The pain has been controllable. No new injuries. The wound was redressed in the emergency room that she has not bled through this. PFSH PFS Medical History BPPV (benign paroxysmal positional vertigo) Dizziness Hyperlipidemia Hyperlipidemia Preventative health care Swelling of left lower extremity Vitamin D insufficiency Home Medications multivitamin 1 tab PO QAM 07/28/17 [History Last Taken Unknown] compress.stocking,knee,reg,med #2 ea 05/11/18 [Rx Last Taken Unknown] ibuprofen 600 mg tablet 600 mg PO TID PRN #30 tab 07/15/19 [Rx Last Taken Unknown] triamcinolone acetonide 0.5 % topical cream 1 applic TOPICAL BID #454 g 11/01/19 [Rx Last Taken Unknown] simvastatin 10 mg tablet 10 mg PO QPM #90 tab 11/01/20 [Rx Last Taken Unknown] meclizine 12.5 mg tablet 12.5 mg PO BID PRN #30 tab 03/08/21 [Rx Last Taken Unknown] cephalexin 500 mg PO Q8H 10 Days #30 cap 03/21/21 [Rx Last Taken Unknown] hydrocodone-acetaminophen 1 tab PO Q4H PRN 5 Days #20 tab 03/21/21 [Rx Last Taken Unknown] Allergy/AdvReac Type Severity Reaction Status Date / Time No Known Allergies Allergy Verified 03/21/21 19:30 Family History Father Hypertension Kidney disease Mother Lung cancer Uncle Liver cancer Brother Liver cancer Surgical History H/O hand surgery History of thyroidectomy, subtotal Social History Smoking Status: Never smoker alcohol intake: current alcohol intake frequency: holidays/special occasions only substance use type: does not use caffeine: Yes what type of physical activity do you participate in: weight training frequency: daily seatbelt use: always do you feel safe at home: Yes additional social history: -Sone Patient works at [employer] ED Constitutional Constitutional ED: Denies fever(s) or weight loss ENT ENT ED: Denies rhinorrhea or sore throat Cardiovascular Cardiovascular: Denies chest pain or palpitations Respiratory/Chest Respiratory/Chest: Denies cough or dyspnea Gastrointestinal Gastrointestinal: Denies abdominal pain, nausea or vomiting Genitourinary Genitourinary ED: Denies dysuria or hematuria Musculoskeletal Musculoskeletal: Denies arthralgias or myalgias Integumentary Reports other Details: Laceration of right lower extremity Neurologic Neurologic: Denies headache(s) or paresthesias EXAM Physical Exam Const Vital Signs: 03/22/21 18:29 03/22/21 20:03 Temperature 96.9 F L Temperature Source Temporal Pulse Rate 87 70 Respiratory Rate 16 16 Blood Pressure 111/68 109/64 Blood Pressure Mean 82 79 Pulse Ox 99 98 Oxygen Delivery Method Room Air Positive well nourished HEENT Reports moist mucous membranes normocephalic Resp normal respiratory effort and clear to auscultation bilaterally Cardio regular rate and regular rhythm Extremity Extremity Narrative: Dressing to right lower extremity is clean dry and intact. Dressing is taken down and the wound has no active bleeding. No crepitance. No sign of infection. Neuro oriented x3 Sensorium / Orientation: alert Psych mental status grossly normal MDM MDM MDM Narrative Medical decision making narrative: Patient with large laceration of the right lower extremity which is no longer bleeding. There is no sign of infection. Wound will be dressed and she will be discharged home. She will follow-up with Dr. William. She can return precautions. Impression: 1. Wound check? Discharge Plan Triage Chief Complaint: Wound Check ED Provider: Angel Orellana Dx/Rx/DC Orders Instructions: ED Post Op Wound Check, Bleeding Prescriptions: No Action multivitamin [Daily Multi-Vitamin] tablet 1 tab PO QAM RF: 0 (DME) compress.stocking,knee,reg,med misc See Dose Instructions .ROUTE .MEDSUPPLY Qty: 2 RF: 0 ibuprofen 600 mg tablet 600 mg PO TID PRN (Reason: pain) Qty: 30 RF: 0 triamcinolone acetonide 0.5 % cream 1 applic TOPICAL BID Qty: 454 RF: 1 meclizine 12.5 mg tablet 12.5 mg PO BID PRN (Reason: dizziness) Qty: 30 RF: 1 cephalexin 500 mg capsule 500 mg PO Q8H 10 Days Qty: 30 RF: 0 hydrocodone-acetaminophen 5-325 mg tablet 1 tab PO Q4H PRN (Reason: pain) 5 Days Qty: 20 RF: 0 simvastatin 10 mg tablet 10 mg PO QPM Qty: 90 RF: 3 Primary Care Provider: Armando Oro Referrals: Armando Oro, [Primary Care Provider] - Disposition Disposition: Home, Self Care
== END 2021-03-22 21:43 | disposition home or self-care (01) ==
PROVIDERS: Emergency Provider Student in an Organized Health Care Education/Training Program; PCP Family Medicine
DX: S81.811D Laceration without foreign body, right lower leg, subsequent encounter (principal); X58.XXXD Exposure to other specified factors, subsequent encounter; E89.0 Postprocedural hypothyroidism; E78.5 Hyperlipidemia, unspecified; E55.9 Vitamin D deficiency, unspecified
CPT/HCPCS: 99282

== ENCOUNTER 2021-04-18 14:15 | Outpatient (RCR) | payer OTHER, SELFPAY ==
[2021-04-11 13:17] VITALS: BP 103/69; PULSE 73; RESP 16; BMI 25.2
--- NOTE | 2021-04-11 15:34 | HP.PCM_ITS ---
History of Present Illness Date of Service: 04/11/21 Chief Complaint: Right lower extremity wound History of Wound: This is a 60-year-old female who presents to the wound healing center today with a right lower extremity wound. This is a workers comp case as it occurred at work. On March 21, 2021, the patient was pinned between a tow motor and her right leg against the wall causing a laceration. She went to the emergency department at [facility] where orthopedics Dr. William was consulted and he reviewed her imaging washed out the wound and repaired in the emergency department. She was discharged home with Xeroform for wound care and crutches and a walking boot. She was also given Keflex and pain medication and was referred to the wound healing center. Since then, the patient states that her sutures have been removed and that she has completed her entire course of Keflex. She denies any systemic or localized signs of infection at this time but is getting moderate amounts of drainage which is serosanguineous. She has not been utilizing any compression. She states that there are a few areas of blackened areas on the wound but they seem to be improving in size. Denies any other aggravating relieving factors. She does follow-up with her orthopedic next week. Past medical, family, and social history reviewed and not pertinent to the current visit and all other systems reviewed and negative with exception of those listed above. 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[employer]) BPPV (benign paroxysmal positional vertigo) Dizziness Hyperlipidemia Hyperlipidemia Laceration without foreign body, right lower leg, initial encounter Preventative health care Swelling of left lower extremity Vitamin D insufficiency Home Medications multivitamin 1 tab PO QAM 07/28/17 [History Last Taken Unknown] compress.stocking,knee,reg,med #2 ea 05/11/18 [Rx Last Taken Unknown] simvastatin 10 mg tablet 10 mg PO QPM #90 tab 11/01/20 [Rx Last Taken Unknown] meclizine 12.5 mg tablet 12.5 mg PO BID PRN #30 tab 03/08/21 [Rx Last Taken Unknown] acetaminophen [Tylenol] 650 mg PO Q6H 04/11/21 [History Last Taken Unknown] aspirin 162 mg PO DAILY 04/11/21 [History Last Taken Unknown] Allergy/AdvReac Type Severity Reaction Status Date / Time No Known Allergies Allergy Verified 04/11/21 13:37 Family History Father Hypertension Kidney disease Mother Lung cancer Uncle Liver cancer Brother Liver cancer Surgical History H/O hand surgery History of thyroidectomy, subtotal Social History Smoking Status: Never smoker alcohol intake: current alcohol intake frequency: holidays/special occasions only substance use type: does not use caffeine: Yes what type of physical activity do you participate in: weight training frequency: daily seatbelt use: always do you feel safe at home: Yes additional social history: -Sone Patient works at [employer] Narrative Negative x10 systems with exception of those listed above Vital Signs Vital Signs Vital Signs: 04/11/21 13:17 Pulse Rate 73 Respiratory Rate 16 Blood Pressure 103/69 Blood Pressure Mean 80 Blood Pressure Source Monitor Blood Pressure Position Sitting Blood Pressure Location Right Arm Oxygen Delivery Method Room Air Weight Weight: 129 lb Body Mass Index (BMI) 25.2 Physical Exam Const alert, oriented x3, no apparent distress, healthy appearing and well nourished General Appearance: cooperative Exam Limitations: no limitations HEENT normocephalic Head and Scalp: normal to inspection Mouth: oral and palatal mucosa normal Eyes General Eye: normal appearance of both eyes Resp normal respiratory effort, normal air movement and no use of accessory muscles Effort and Inspection: able to speak in complete sentences Auscultation: clear to auscultation bilaterally Cardio regular rate, regular rhythm, S1 normal heart sound, S2 normal heart sound, no murmurs and peripheral pulses 2+ throughout Palpation: normal PMI Rate: regular rate Heart Sounds: S1 normal and S2 normal GI normal to inspection, nondistended, normoactive bowel sounds, soft to palpation, non-tender and non-distended Palpation: soft Extremity normal to inspection and full ROM General Extremity: normal exam except as noted Skin Skin Narrative: Right lower extremity, generalized edema, large wound present which is mostly well approximated, there are some small areas that have some slight dehiscence, mostly the wound bed is beefy red and granular without any signs of infection at this time, there are some areas of eschar with no fluctuance or purulence present, one suture is currently left in place in the center of the wound Neuro oriented x3 and moves all extremities Sensorium / Orientation: awake, alert, oriented to person, oriented to place and oriented to time Psych mental status grossly normal, thought process normal and denies hallucinations Appearance: grossly normal Attitude: calm Activity / Motor Behavior: appropriate eye contact Speech: normal speech Thought Process: normal thought process Thought Content: normal thought content Attention / Concentration: attention grossly intact Insight: insight good Judgement: judgement good Debridement Note Debridement Note Wound debrided: Right lower extremity wound Laterality: Right Type of Debridement: Excisional debridement Anesthesia Used: 5% Lidocaine Gel Depth: Down to and including healthy tissue and in the subcutaneous layer Percentage of wound debrided: 100 Instrument Used: 5mm curette Tissue Removed: Slough and devitalized tissue Severity: Fat Layer Exposed Amount of bleeding with debridement: Mild Bleeding Controlled with: Pressure Patient tolerated procedure: Patient tolerated procedure well Post-Debridement Measurements and Additional Note: Post-Debridement Measurements/Treatment - Nurse 1 - General Ulcer Assessment Start: 04/11/21 12:54 Freq: Status: Active Protocol: .OLXGARDENIA Activity Type Activity Date Activity User E-Sign Co-Sign Detail Recorded Client Recorded Date Recorded By Document 04/11/21 13:17 [facility] [id number] 04/11/21 13:34 [facility] 04/11/21 13:17 - Today's Visit Information Type of service Initial Visit Arrival Mode Wheelchair Transfer Assistance Other Transfer Assist (Other) stand by Accompanied by daughter Patient Identification Verified (Name & Yes ) Patient Requires Transmission-Based No Precautions Height and Weight Height 5 ft Weight 129 lb Weight in Pounds 129.0 lbs Weight Measurement Method Estimated by Patient Body Mass Index (BMI) 25.2 BMI Classification Overweight BSA - Talisha 1.55 Vital Signs Pulse Rate (60-100) 73 Pulse Location Monitor Respiratory Rate (12-18) 16 Respiratory rate source Observation Oxygen Delivery Method Room Air Blood Pressure (90/60-120/80) 103/69 Blood Pressure Mean 80 Source Monitor Position Sitting Blood Pressure Location Right Arm History Since Last Visit- (Skip if this is Patient's initial visit) Left Footwear Regular Shoe Right Footwear Removable Cast Walker/Walking Boot Pain Scale: 0-10 Numeric Is Patient Pain Free? Yes Lower Extremity Assessment/ Foot Assessment/ Toe Nail Assessment Left -Posterior Tibial Palpable No -Posterior Tibial Doppler Multiphasic -Dorsalis Pedis Palpable Yes -Dorsalis Pedis Doppler Multiphasic -Temperature of Extremity Warm -Other Deformity No -Prior Foot Ulcer No -Charcot Joint No -Prior Amputation No -Thick No -Discolored No -Deformed No -Improper Length & Hygeine No Right -Posterior Tibial Palpable No -Posterior Tibial Doppler Multiphasic -Dorsalis Pedis Palpable Yes -Dorsalis Pedis Doppler Multiphasic -Temperature of Extremity Warm -Other Deformity No -Prior Foot Ulcer No -Charcot Joint No -Prior Amputation No -Thick No -Discolored No -Deformed No -Improper Length & Hygeine No Communication Assessment Preferred language Other Able to Read Yes Able to Write Yes Communication Tools None Right Hearing Abillity Normal Left Hearing Abillity Normal Visual Assistive Devices None Teaching Assessment Preferences Verbal,Written, Audio/Visual, Demonstration Barriers to Learning None Readiness To Learn Good Willingness to Engage in Self Management High Activies Readiness to Engage in Self Management High Activities Anxiety Level Calm Cooperation Cooperative Perception Coherent Interest in Health Problem Asks Questions Education Importance Acknowledges Need Does Patient Smoke tobacco or other No substances Smoking Status Never smoker Is Patient Diabetic No Functional Assessment Recent Decline in Ability to Perform Ambulation Culture/Synagogue/[employer]er Cultural/Synagogue Needs that may affect No Treatment Plan Teaching: Wound Center *Welcome to the Wound Center -Person Taught Patient,Family -Teaching Method Discussion -Response to teaching Verbalize understanding Welcome to the [facility] WC - Nurse 1 - General Ulcer Measurement Start: 04/11/21 12:54 Freq: Status: Active Protocol: Activity Type Activity Date Activity User E-Sign Co-Sign Detail Recorded Client Recorded Date Recorded By Document 04/11/21 13:17 [facility] [id number] 04/11/21 13:34 [facility] 04/11/21 13:17 Wound Center Nurse 1 #1- 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) -Combined with other wound No -Current Size (cm) - Length 20.5 -Current Size (cm) - Width 6 -Current Size (cm) - Depth 0.1 -Total Square Cm 123.0 -Date of Last Picture (Recall this 04/11/21 field) -Photo Taken Yes -Tunneling No -Undermining/Tunneling No -Circular Undermining No -Exudate Amt Large -Exudate Type Serosanguineous -Wound Margin Distinct, Outline Attached -Granulation Amt Medium (34-66%) -Granulation Quality Carnuel -Slough/Fibrin Yes -Necrosis Amt Medium (34-66%) -Necrotic Tissue Type Adherent Slough -Texture (Charleen-wound Skin Appearance) Assessed, Scarring -Moisture (Charleen-wound Skin Appearance) Assessed -Color (Charleen-wound Skin Appearance) Assessed, Erythema -Temperature (Charleen-wound Skin No Abnormality Appearance) (Pt Warm) -Tenderness on Palpation (Charleen-wound No Skin Appearance) -Ulcer Cleansing Soap and Water -Foul Odor after Cleansing No -Anesthetic Used 4% Lidocaine Solution Lower Limb Edema Present Yes Right Calf (cm) 35.1 Right Ankle (cm) 22.8 WC - Nurse 2 - General Ulcer CM Notes Start: 04/11/21 12:54 Freq: Status: Active Protocol: Activity Type Activity Date Activity User E-Sign Co-Sign Detail Recorded Client Recorded Date Recorded By Document 04/11/21 13:59 MW [id number] 04/11/21 14:08 MW 04/11/21 13:59 Wound Center Nurse 2 #1- 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) -Time 14:00 -Correct Patient Yes -Correct Side, Site, Position Yes -Correct Procedure Yes -Procedure Performed Yes -Type of Procedure Debridement -Clinical Debridement Subcutaneous -Tissue Removed Subcutaneous -Post Debridement (cm) - Length 23.0 -Post Debridement (cm) - Width 6.0 -Post Debridement (cm) - Depth 0.2 -Total Square (Post) (cm) 138.00 -Area of Debridement (cm) - Length 23.0 -Area of Debridement (cm) - Width 6.0 -Total Square (Area) (cm) 138.00 -Tunneling No -Undermining/Tunneling No -Circular Undermining No -Wound/Ulcer Outcome Not Healed -Ulcer Cleansing Rinsed/ Irrigated with Saline -Foul Odor after Cleansing No -Bioengineered Tissue No -Bleeding Controlled with Pressure -Offloading No -Treatment Response Procedure Tolerated Well -Debridement - Subq, 1st 20sq cm Yes -Debridement, SubQ, ea addt'l 20sq cm 6 or part thereof Pain Scale: 0-10 Numeric Is Patient Pain Free? Yes - Nurse 3 - General Ulcer D/C NN Start: 04/11/21 12:54 Freq: Status: Active Protocol: Activity Type Activity Date Activity User E-Sign Co-Sign Detail Recorded Client Recorded Date Recorded By Document 04/11/21 14:18 RB [id number] 04/11/21 14:19 RB 04/11/21 14:18 Wound Care Nurse 3 #1- 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) -Ulcer Cleansing Rinsed/ Irrigated with Saline -Primary Dressing Applied Silvercel -Other Dressing abd -Primary Dressing Covered/Secured with Dry Gauze,Dry Gauze & Roll Gauze,Secured with Tape -Silvercel 1 Right -Tubular Bandage Double Layer -Size of Tubigrip Used Size E -Size E ($) 2 Treatment Response Procedure Tolerated Well Pain Scale: 0-10 Numeric Is Patient Pain Free? Yes WC - Visit Discharge Discharge Condition Stable Ambulatory Status Ambulatory Transportation Private Auto Medication Reconcilliation completed & No provided to patient/care provider Clinical Summary of Care Provided Yes Charges/Coding Visit Charges Office Visits / Consults: 26066 OV L3 Est Procedures Integumentary 111xxx-113xx: 30842 Shy subq tissue 20 sq cm/< Add On Codes: 65043 Shy subq tissue add-on Assessment/Plan Assessment/Plan (1) Laceration without foreign body, right lower leg, initial encounter: CODE(S): S81.811A - Laceration without foreign body, right lower leg, initial encounter PLAN: Debridement performed today in clinic as annotated above. Silver cell applied. At home wound-care instructions: Daily to every other day silver cell dressings cover with ABD and tape, Change dressing once daily or more frequently as needed due to contamination. Wash wounds daily with antibacterial soap and water, rinse and dry thoroughly before each dressing change. Compression: Double layer Tubigrip's Off-loading: The patient was instructed to avoid pressure and friction on the affected areas. Reposition every 2 hours at minimum. Avoid prolonged standing and/or dangling of legs. When seated, feet should be elevated at chest level. Frequent ambulation is encouraged. Diet: Patient encouraged to increase protein intake while taking caution to av oid high carbohydrate and/or sugar intake. Patient is a non-smoker Labs/cultures/imaging: Cultures held today. Routine baseline lab work held. Vascular studies held. Follow-up: Return to clinic in 1 week for re-evaluation. She will continue following up with her flow specialist Dr. William as well return sooner or report to the emergency room should symptoms worsen, or new symptoms arise. This note was generated with Flo[employer] dictation software. It may contain incorrect words, spelling, and punctuation that were not noted in checking the note before signing. I have spent 25 minutes today reviewing labs, records, and history. Time includes coordinating care, interpretation of tests, and counseling the patient/family. This also includes time I spent with the patient for exam, yudelka atment plan, and education as well as documenting clinical information in the electronic health record.
[2021-04-18 14:04] VITALS: RESP 18; TEMP 36.2; BMI 25.2
--- NOTE | 2021-04-18 16:02 | PCM.WC.PN ---
History of Present Illness Date of Service: 04/18/21 Chief Complaint: Right lower extremity wound History of Wound: This is a 60-year-old female who presents to the wound healing center today with a right lower extremity wound. This is a workers comp case as it occurred at work. On March 21, 2021, the patient was pinned between a tow motor and her right leg against the wall causing a laceration. She went to the emergency department at [facility] where orthopedics Dr. William was consulted and he reviewed her imaging washed out the wound and repaired in the emergency department. She was discharged home with Xeroform for wound care and crutches and a walking boot. She was also given Keflex and pain medication and was referred to the wound healing center. Since then, the patient states that her sutures have been removed and that she has completed her entire course of Keflex. She denies any systemic or localized signs of infection at this time but is getting moderate amounts of drainage which is serosanguineous. She has not been utilizing any compression. She states that there are a few areas of blackened areas on the wound but they seem to be improving in size. Denies any other aggravating relieving factors. She does follow-up with her orthopedic next week. Past medical, family, and social history reviewed and not pertinent to the current visit and all other systems reviewed and negative with exception of those listed above. Progress of Wound: Stable, no new concerns, patient tolerating wound care and the compression well denies any increase in pain or drainage Objective Data Objective Data Vital Signs: Vital Signs Temp Pulse Resp BP 97.2 F L 73 18 103/69 04/18/21 14:04 04/11/21 13:17 04/18/21 14:04 04/11/21 13:17 Oxygen Delivery Method Room Air Weight: 129 lb Body Mass Index (BMI) 25.2 Charges/Coding Procedures Integumentary 111xxx-113xx: 22161 Shy subq tissue 20 sq cm/< Add On Codes: 91003 Shy subq tissue add-on Physical Exam Const alert, oriented x3, no apparent distress, healthy appearing and well nourished General Appearance: cooperative Exam Limitations: no limitations HEENT normocephalic Head and Scalp: normal to inspection Mouth: oral and palatal mucosa normal Eyes General Eye: normal appearance of both eyes Resp normal respiratory effort, normal air movement and no use of accessory muscles Effort and Inspection: able to speak in complete sentences Auscultation: clear to auscultation bilaterally Cardio regular rate, regular rhythm, S1 normal heart sound, S2 normal heart sound, no murmurs and peripheral pulses 2+ throughout Palpation: normal PMI Rate: regular rate Heart Sounds: S1 normal and S2 normal GI normal to inspection, nondistended, normoactive bowel sounds, soft to palpation, non-tender and non-distended Palpation: soft Extremity normal to inspection and full ROM General Extremity: normal exam except as noted Skin Skin Narrative: Right lower extremity, generalized edema, large wound present which is mostly well approximated, there are some small areas that have some slight dehiscence, mostly the wound bed is beefy red and granular without any signs of infection at this time, there are multiple areas of eschar with no fluctuance or purulence present, one suture was removed today Neuro oriented x3 and moves all extremities Sensorium / Orientation: awake, alert, oriented to person, oriented to place and oriented to time Psych mental status grossly normal, thought process normal and denies hallucinations Appearance: grossly normal Attitude: calm Activity / Motor Behavior: appropriate eye contact Speech: normal speech Thought Process: normal thought process Thought Content: normal thought content Attention / Concentration: attention grossly intact Insight: insight good Judgement: judgement good Debridement Note Debridement Note Wound debrided: Right lower extremity wound Laterality: Right Type of Debridement: Excisional debridement Anesthesia Used: 5% Lidocaine Gel Depth: Down to and including healthy tissue and in the subcutaneous layer Percentage of wound debrided: 100 Instrument Used: 5mm curette and #11 blade Tissue Removed: Large amounts of eschar, slough, devitalized tissue Severity: Fat Layer Exposed Amount of bleeding with debridement: Mild Bleeding Controlled with: Pressure, Compression and gauze and Silver Nitrate Patient tolerated procedure: Patient tolerated procedure well Post-Debridement Measurements and Additional Note: Post-Debridement Measurements/Treatment WC - Nurse 1 - General Ulcer Assessment Start: 04/11/21 12:54 Freq: Status: Active Protocol: MERE Activity Type Activity Date Activity User E-Sign Co-Sign Detail Recorded Client Recorded Date Recorded By Document 04/11/21 13:17 [facility] [id number] 04/11/21 13:34 [facility] Document 04/18/21 14:04 [id number] 04/18/21 14:14 JF 04/11/21 04/18/21 13:17 14:04 WC - Today's Visit Information Type of service Initial Visit 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 ) Arrival Mode Wheelchair Wheelchair Transfer Assistance Other Transfer Assist (Other) stand by Accompanied by daughter son Patient Identification Verified (Name & Yes Yes ) Patient Requires Transmission-Based No No Precautions Height and Weight Height 5 ft Weight 129 lb Weight in Pounds 129.0 lbs Weight Measurement Method Estimated by Patient Body Mass Index (BMI) 25.2 25.2 BMI Classification Overweight Overweight BSA - Talisha 1.55 Temperature (97.8 F-99.1 F) 97.2 F L Temperature Source Temporal Vital Signs Pulse Rate (60-100) 73 Pulse Location Monitor Respiratory Rate (12-18) 16 18 Respiratory rate source Observation Observation Oxygen Delivery Method Room Air Blood Pressure (90/60-120/80) 103/69 Blood Pressure Mean (mm Hg) 80 Source Monitor Position Sitting Blood Pressure Location Right Arm Have you changed medications since your No last visit? Any new allergies or adverse reactions No Had a fall/change in ADL's that may No increase risk of falls Signs or symptoms of abuse and/or No neglect since last visit Has dressing in place as prescribed Yes Has compression in place as prescribed Yes Has offloadiing in place as prescribed Yes Experienced any changes in pain level or No management History Since Last Visit- (Skip if this is Patient's initial visit) Left Footwear Regular Shoe Regular Shoe Right Footwear Removable Cast Removable Cast Walker/Walking Walker/Walking Boot Boot Pain Scale: 0-10 Numeric Is Patient Pain Free? Yes Yes Lower Extremity Assessment/ Foot Assessment/ Toe Nail Assessment Left -Posterior Tibial Palpable No -Posterior Tibial Doppler Multiphasic -Dorsalis Pedis Palpable Yes -Dorsalis Pedis Doppler Multiphasic -Temperature of Extremity Warm -Other Deformity No -Prior Foot Ulcer No -Charcot Joint No -Prior Amputation No -Thick No -Discolored No -Deformed No -Improper Length & Hygeine No Right -Posterior Tibial Palpable No -Posterior Tibial Doppler Multiphasic -Dorsalis Pedis Palpable Yes -Dorsalis Pedis Doppler Multiphasic -Temperature of Extremity Warm -Other Deformity No -Prior Foot Ulcer No -Charcot Joint No -Prior Amputation No -Thick No -Discolored No -Deformed No -Improper Length & Hygeine No Communication Assessment Preferred language Other Able to Read Yes Able to Write Yes Communication Tools None Right Hearing Abillity Normal Left Hearing Abillity Normal Visual Assistive Devices None Teaching Assessment Preferences Verbal,Written, Audio/Visual, Demonstration Barriers to Learning None Readiness To Learn Good Willingness to Engage in Self Management High Activies Readiness to Engage in Self Management High Activities Anxiety Level Calm Cooperation Cooperative Perception Coherent Interest in Health Problem Asks Questions Education Importance Acknowledges Need Does Patient Smoke tobacco or other No substances Smoking Status Never smoker Is Patient Diabetic No Functional Assessment Recent Decline in Ability to Perform Ambulation Culture/Mormon/Babysitter Cultural/Mormon Needs that may affect No Treatment Plan Teaching: Wound Center *Welcome to the Wound Center -Person Taught Patient,Family -Teaching Method Discussion -Response to teaching Verbalize understanding Welcome to the Wound Care Center English BENITEZ - Nurse 1 - General Ulcer Measurement Start: 04/11/21 12:54 Freq: Status: Active Protocol: Activity Type Activity Date Activity User E-Sign Co-Sign Detail Recorded Client Recorded Date Recorded By Document 04/11/21 13:17 [facility] [id number] 04/11/21 13:34 [facility] Document 04/18/21 14:04 [id number] 04/18/21 14:14 04/11/21 04/18/21 13:17 14:04 Wound Center Nurse 1 #1- 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) -Combined with other wound No -Current Size (cm) - Length 20.5 21.6 -Current Size (cm) - Width 6 9.5 -Current Size (cm) - Depth 0.1 0.1 -Total Square Cm 123.0 205.20 -Date of Last Picture (Recall this 04/11/21 field) -Photo Taken Yes -Tunneling No -Undermining/Tunneling No -Circular Undermining No -Exudate Amt Large Medium -Exudate Type Serosanguineous Serosanguineous -Wound Margin Distinct, Distinct, Outline Outline Attached Attached -Granulation Amt Medium (34-66%) Small (1-33%) -Granulation Quality [place] -Slough/Fibrin Yes -Necrosis Amt Medium (34-66%) Small (1-33%) -Necrotic Tissue Type Adherent Slough Adherent Slough -Texture (Charleen-wound Skin Appearance) Assessed, Assessed Scarring -Moisture (Charleen-wound Skin Appearance) Assessed Assessed -Color (Charleen-wound Skin Appearance) Assessed, Assessed Erythema -Temperature (Charleen-wound Skin No Abnormality No Abnormality Appearance) (Pt Warm) (Pt Warm) -Tenderness on Palpation (Charleen-wound No No Skin Appearance) -Ulcer Cleansing Soap and Water Soap and Water -Foul Odor after Cleansing No No -Anesthetic Used 4% Lidocaine 4% Lidocaine Solution Solution Lower Limb Edema Present Yes Right Calf (cm) 35.1 34 Right Ankle (cm) 22.8 23.3 WC - Nurse 2 - General Ulcer CM Notes Start: 04/11/21 12:54 Freq: Status: Active Protocol: Activity Type Activity Date Activity User E-Sign Co-Sign Detail Recorded Client Recorded Date Recorded By Document 04/11/21 13:59 MW [id number] 04/11/21 14:08 MW Document 04/18/21 14:27 MW [id number] 04/18/21 14:42 MW 04/11/21 04/18/21 13:59 14:27 Wound Center Nurse 2 #1- 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) -Time 14:00 14:31 -Correct Patient Yes Yes -Correct Side, Site, Position Yes Yes -Correct Procedure Yes Yes -Procedure Performed Yes Yes -Type of Procedure Debridement Debridement -Clinical Debridement Subcutaneous Subcutaneous -Tissue Removed Subcutaneous Subcutaneous -Post Debridement (cm) - Length 23.0 22.0 -Post Debridement (cm) - Width 6.0 5.5 -Post Debridement (cm) - Depth 0.2 0.7 -Total Square (Post) (cm) 138.00 121.00 -Area of Debridement (cm) - Length 23.0 22.0 -Area of Debridement (cm) - Width 6.0 5.5 -Total Square (Area) (cm) 138.00 121.00 -Tunneling No No -Undermining/Tunneling No No -Circular Undermining No No -Wound/Ulcer Outcome Not Healed Not Healed -Ulcer Cleansing Rinsed/ Rinsed/ Irrigated with Irrigated with Saline Saline -Foul Odor after Cleansing No No -Bioengineered Tissue No No -Bleeding Controlled with Pressure Pressure -Offloading No No -Treatment Response Procedure Procedure Tolerated Well Tolerated Well -Debridement - Subq, 1st 20sq cm Yes Yes -Debridement, SubQ, ea addt'l 20sq cm 6 6 or part thereof Pain Scale: 0-10 Numeric Is Patient Pain Free? Yes Yes - Nurse 3 - General Ulcer D/C NN Start: 04/11/21 12:54 Freq: Status: Active Protocol: Activity Type Activity Date Activity User E-Sign Co-Sign Detail Recorded Client Recorded Date Recorded By Document 04/11/21 14:18 RB [id number] 04/11/21 14:19 RB Document 04/18/21 14:48 [id number] 04/18/21 14:49 04/11/21 04/18/21 14:18 14:48 Wound Care Nurse 3 #1- 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) -Ulcer Cleansing Rinsed/ Rinsed/ Irrigated with Irrigated with Saline Saline -Foul Odor after Cleansing No -Primary Dressing Applied Silvercel Silvercel -Other Dressing abd -Primary Dressing Covered/Secured with Dry Gauze,Dry Dry Gauze & Gauze & Roll Roll Gauze, Gauze,Secured Secured with with Tape Tape -Silvercel 1 1 Right -Tubular Bandage Double Layer Double Layer -Size of Tubigrip Used Size E Size D -Size D ($) 2 -Size E ($) 2 Treatment Response Procedure Tolerated Well Pain Scale: 0-10 Numeric Is Patient Pain Free? Yes Yes - Visit Discharge Discharge Condition Stable Stable Ambulatory Status Ambulatory Wheelchair Transportation Private Auto Private Auto Accompanied by son Medication Reconcilliation completed & No Yes provided to patient/care provider Clinical Summary of Care Provided Yes Yes Assessment/Plan Assessment/Plan (1) Laceration without foreign body, right lower leg, initial encounter: CODE(S): S81.811A - Laceration without foreign body, right lower leg, initial encounter PLAN: Debridement performed today in clinic as annotated above. Silver cell applied. At home wound-care instructions: Daily to every other day silver cell dressings cover with ABD and tape, Change dressing once daily or more frequently as needed due to contamination. Wash wounds daily with antibacterial soap and water, rinse and dry thoroughly before each dressing change. Compression: Double layer Tubigrip's Off-loading: The patient was instructed to avoid pressure and friction on the affected areas. Reposition every 2 hours at minimum. Avoid prolonged standing and/or dangling of legs. When seated, feet should be elevated at chest level. Frequent ambulation is encouraged. Diet: Patient encouraged to increase protein intake while taking caution to avoid high carbohydrate and/or sugar intake. Patient is a non-smoker Labs/cultures/imaging: Cultures held today. Routine baseline lab work held. Vascular studies held. Follow-up: Return to clinic in 1 week for re-evaluation. She will continue following up with her cardiology clinical nurse specialist Dr. William as well return sooner or report to the emergency room should symptoms worsen, or new symptoms arise. Do believe that patient would benefit from further compression with Unna boot and that this would help with wound healing, C9 completed and will consider Unna boot at next visit if approved from [facility] This note was generated with [employer] dictation software. It may contain incorrect words, spelling, and punctuation that were not noted in checking the note before signing. I have spent 25 minutes today reviewing labs, records, and history. Time includes coordinating care, interpretation of tests, and counseling the patient/family. This also includes time I spent with the patient for exam, treatment plan, and education as well as documenting clinical information in the electronic health record.
== END 2021-04-19 23:59 ==
LOC: WC 14:15
PROVIDERS: PCP Family Medicine; Visit Provider Nurse Practitioner Family
DX: T81.33XD Disruption of traumatic injury wound repair, subsequent encounter (principal); S81.811D Laceration without foreign body, right lower leg, subsequent encounter; W23.0XXD Caught, crushed, jammed, or pinched between moving objects, subsequent encounter; Y99.0 Civilian activity done for income or pay; H81.10 Benign paroxysmal vertigo, unspecified ear; E78.5 Hyperlipidemia, unspecified; E55.9 Vitamin D deficiency, unspecified; Z79.82 Long term (current) use of aspirin; Z79.899 Other long term (current) drug therapy; E89.0 Postprocedural hypothyroidism; E66.3 Overweight; Z68.25 Body mass index [BMI] 25.0-25.9, adult
CPT/HCPCS: 11042; 11045; 99213; G0463

== ENCOUNTER 2021-05-20 15:00 | Outpatient (RCR) | payer OTHER, SELFPAY ==
[2021-04-20 00:38] VITALS: BP 103/69; PULSE 73; RESP 18; TEMP 36.2; BMI 25.2
[2021-04-25 14:54] VITALS: BP 117/67; PULSE 81; RESP 18; TEMP 36.6; BMI 25.2
--- NOTE | 2021-04-25 23:32 | PN.PCM_ITS ---
History of Present Illness Date of Service: 04/25/21 Chief Complaint: Right lower extremity wound History of Wound: This is a 60-year-old female who presents to the wound healing center today with a right lower extremity wound. This is a workers comp case as it occurred at work. On March 21, 2021, the patient was pinned between a tow motor and her right leg against the wall causing a laceration. She went to the emergency department at [facility] where orthopedics Dr. William was consulted and he reviewed her imaging washed out the wound and repaired in the emergency department. She was discharged home with Xeroform for wound care and crutches and a walking boot. She was also given Keflex and pain medication and was referred to the wound healing center. Since then, the patient states that her sutures have been removed and that she has completed her entire course of Keflex. She denies any systemic or localized signs of infection at this time but is getting moderate amounts of drainage which is serosanguineous. She has not been utilizing any compression. She states that there are a few areas of blackened areas on the wound but they seem to be improving in size. Denies any other aggravating relieving factors. She does follow-up with her orthopedic next week. Past medical, family, and social history reviewed and not pertinent to the current visit and all other systems reviewed and negative with exception of those listed above. Progress of Wound: Stable?no new concerns, patient is running out of her Romulus for her pain that she gets from her wound, a short-term refill was sent to her pharmacy as she is a primary care patient at my office as well. PCP Dr. Oro notified. OARRS was verified and demonstrates no red flags that would indicate abuse or diversion. With regard to her wound, the wound does appear to be improving with less eschar and less devitalized tissue present this week. [facility] did approve her for Unna boots, however given the fact that she is still having moderate amount of drainage will hold off for 1 more week. Objective Data Objective Data Vital Signs: Vital Signs Temp Pulse Resp BP 97.9 F 81 18 117/67 04/25/21 14:54 04/25/21 14:54 04/25/21 14:54 04/25/21 14:54 Weight: 129 lb Body Mass Index (BMI) 25.2 Charges/Coding Procedures Integumentary 111xxx-113xx: 68397 Shy subq tissue 20 sq cm/< Add On Codes: 92878 Shy subq tissue add-on Physical Exam Const alert, oriented x3, no apparent distress, healthy appearing and well nourished General Appearance: cooperative Exam Limitations: no limitations HEENT normocephalic Head and Scalp: normal to inspection Mouth: oral and palatal mucosa normal Eyes General Eye: normal appearance of both eyes Resp normal respiratory effort, normal air movement and no use of accessory muscles Effort and Inspection: able to speak in complete sentences Auscultation: clear to auscultation bilaterally Cardio regular rate, regular rhythm, S1 normal heart sound, S2 normal heart sound, no murmurs and peripheral pulses 2+ throughout Palpation: normal PMI Rate: regular rate Heart Sounds: S1 normal and S2 normal GI normal to inspection, nondistended, normoactive bowel sounds, soft to palpation, non-tender and non-distended Palpation: soft Extremity normal to inspection and full ROM General Extremity: normal exam except as noted Skin Skin Narrative: Right lower extremity, generalized edema, large wound present which is mostly well approximated at laceration repair sites, mostly the wound bed is beefy red and granular without any signs of infection at this time, there are multiple areas of eschar with no fluctuance or purulence present Neuro oriented x3 and moves all extremities Sensorium / Orientation: awake, alert, oriented to person, oriented to place and oriented to time Psych mental status grossly normal, thought process normal and denies hallucinations Appearance: grossly normal Attitude: calm Activity / Motor Behavior: appropriate eye contact Speech: normal speech Thought Process: normal thought process Thought Content: normal thought content Attention / Concentration: attention grossly intact Insight: insight good Judgement: judgement good Debridement Note Debridement Note Wound debrided: Right lower extremity wound Laterality: Right Type of Debridement: Excisional debridement Anesthesia Used: 5% Lidocaine Gel Depth: Down to and including healthy tissue and in the subcutaneous layer Percentage of wound debrided: 100 Instrument Used: 7mm curette and #11 blade Tissue Removed: Slough and devitalized tissue Severity: Fat Layer Exposed Amount of bleeding with debridement: Mild Bleeding Controlled with: Pressure Patient tolerated procedure: Patient tolerated procedure well Post-Debridement Measurements and Additional Note: Post-Debridement Measurements/Treatment WC - Nurse 1 - General Ulcer Assessment Start: 04/25/21 09:50 Freq: Status: Active Protocol: EMMANUEL.JAMEEL Activity Type Activity Date Activity User E-Sign Co-Sign Detail Recorded Client Recorded Date Recorded By Document 04/25/21 14:54 DL [id number] 04/25/21 15:04 DL 04/25/21 14:54 - Today's Visit Information Type of service Follow-up Visit (Physician/ROTARY RIG ENGINE OPERATOR ) Arrival Mode Wheelchair Transfer Assistance Manual Transfer Assist (Other) x1 Patient Identification Verified (Name & Yes ) Patient Requires Transmission-Based No Precautions Height and Weight Body Mass Index (BMI) 25.2 BMI Classification Overweight Vital Signs Temperature (97.8 F-99.1 F) 97.9 F Temperature Source Temporal Pulse Rate (60-100) 81 Pulse Location Monitor Respiratory Rate (12-18) 18 Respiratory rate source Observation Blood Pressure (90/60-120/80) 117/67 Blood Pressure Mean (mm Hg) 83 Source Monitor History Since Last Visit- (Skip if this is Patient's initial visit) Have you changed medications since your No last visit? Any new allergies or adverse reactions No Had a fall/change in ADL's that may No increase risk of falls Signs or symptoms of abuse and/or No neglect since last visit Have you been in the hospital since your No last visit? Has dressing in place as prescribed Yes Has compression in place as prescribed Yes Has offloadiing in place as prescribed Yes Experienced any changes in pain level or No management Right Footwear Removable Cast Walker/Walking Boot Pain Scale: 0-10 Numeric Is Patient Pain Free? Yes - Nurse 1 - General Ulcer Measurement Start: 04/25/21 09:50 Freq: Status: Active Protocol: Activity Type Activity Date Activity User E-Sign Co-Sign Detail Recorded Client Recorded Date Recorded By Document 04/25/21 14:54 DL [id number] 04/25/21 15:04 DL 04/25/21 14:54 Wound Center Nurse 1 #1- 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) -Current Size (cm) - Length 21 -Current Size (cm) - Width 4 -Current Size (cm) - Depth 0.3 -Total Square Cm 84 -Photo Taken No -Exudate Amt Medium -Exudate Type Serosanguineous -Wound Margin Distinct, Outline Attached -Granulation Amt Large (67-100%) -Granulation Quality [place] -Necrosis Amt Medium (34-66%) -Necrotic Tissue Type Adherent Slough -Structure Exposed N/A -Texture (Charleen-wound Skin Appearance) Localized Edema ,Scarring -Moisture (Charleen-wound Skin Appearance) No Abnormality -Color (Charleen-wound Skin Appearance) No Abnormality -Temperature (Charleen-wound Skin No Abnormality Appearance) (Pt Warm) -Tenderness on Palpation (Charleen-wound No Skin Appearance) -Ulcer Cleansing Soap and Water -Foul Odor after Cleansing No -Anesthetic Used 4% Lidocaine Solution Right Calf (cm) 33.1 Right Ankle (cm) 22.2 WC - Nurse 2 - General Ulcer CM Notes Start: 04/25/21 09:50 Freq: Status: Active Protocol: Activity Type Activity Date Activity User E-Sign Co-Sign Detail Recorded Client Recorded Date Recorded By Document 04/25/21 15:19 MW [id number] 04/25/21 15:32 MW 04/25/21 15:19 Wound Center Nurse 2 #1- 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) -Time 15:19 -Correct Patient Yes -Correct Side, Site, Position Yes -Correct Procedure Yes -Procedure Performed Yes -Type of Procedure Debridement -Clinical Debridement Subcutaneous -Tissue Removed Subcutaneous -Post Debridement (cm) - Length 22.0 -Post Debridement (cm) - Width 6.0 -Post Debridement (cm) - Depth 0.7 -Total Square (Post) (cm) 132.00 -Area of Debridement (cm) - Length 22.0 -Area of Debridement (cm) - Width 6.0 -Total Square (Area) (cm) 132.00 -Tunneling No -Undermining/Tunneling No -Circular Undermining No -Wound/Ulcer Outcome Not Healed -Ulcer Cleansing Rinsed/ Irrigated with Saline -Foul Odor after Cleansing No -Bioengineered Tissue No -Bleeding Controlled with Pressure -Offloading No -Treatment Response Procedure Tolerated Well -Debridement - Subq, 1st 20sq cm Yes -Debridement, SubQ, ea addt'l 20sq cm 6 or part thereof Pain Scale: 0-10 Numeric Is Patient Pain Free? Yes WC - Nurse 3 - General Ulcer D/C NN Start: 04/25/21 09:50 Freq: Status: Active Protocol: Activity Type Activity Date Activity User E-Sign Co-Sign Detail Recorded Client Recorded Date Recorded By Document 04/25/21 15:41 DL [id number] 04/25/21 15:47 DL 04/25/21 15:41 Wound Care Nurse 3 #1- 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) -Ulcer Cleansing Soap and Water -Foul Odor after Cleansing No -Primary Dressing Applied Silvercel -Primary Dressing Covered/Secured with Dry Gauze & Roll Gauze, Secured with Tape -Other Covering abd -Silvercel 2 Treatment Response Procedure Tolerated Well Pain Scale: 0-10 Numeric Is Patient Pain Free? Yes WC - Visit Discharge Discharge Condition Stable Ambulatory Status Wheelchair Transportation Private Auto Assessment/Plan Assessment/Plan (1) Laceration without foreign body, right lower leg, initial encounter: CODE(S): S81.811A - Laceration without foreign body, right lower leg, initial encounter PLAN: Debridement performed today in clinic as annotated above. Silver cell applied. At home wound-care instructions: Daily to every other day silver cell dressings cover with ABD and tape, Change dressing once daily or more frequently as needed due to contamination. Wash wounds daily with antibacterial soap and water, rinse and dry thoroughly before each dressing change. Compression: Double layer Tubigrip's Off-loading: The patient was instructed to avoid pressure and friction on the affected areas. Reposition every 2 hours at minimum. Avoid prolonged standing and/or dangling of legs. When seated, feet should be elevated at chest level. Frequent ambulation is encouraged. Diet: Patient encouraged to increase protein intake while taking caution to avoid high carbohydrate and/or sugar intake. Patient is a non-smoker Labs/cultures/imaging: Cultures held today. Routine baseline lab work held. Vascular studies held. Follow-up: Return to clinic in 1 week for re-evaluation. She will continue following up with her crisis intervention specialist Dr. William as well return sooner or report to the emergency room should symptoms worsen, or new symptoms arise. Do believe that patient would benefit from further compression with Unna boot and that this would help with wound healing, C9 completed and will consider Unna boot at next visit if approved from [facility] This note was generated with [employer] software. It may contain incorrect words, spelling, and punctuation that were not noted in checking the note before signing. I have spent 25 minutes today reviewing labs, records, and history. Time includes coordinating care, interpretation of tests, and counseling the patient/family. This also includes time I spent with the patient for exam, treatment plan, and education as well as documenting clinical information in the electronic health record.
[2021-05-02 15:20] VITALS: BP 112/73; PULSE 79; RESP 16; TEMP 36.7; BMI 25.2
--- NOTE | 2021-05-02 16:33 | PCM.WC.PN ---
History of Present Illness Date of Service: 05/02/21 Chief Complaint: Right lower extremity wound History of Wound: This is a 60-year-old female who presents to the wound healing center today with a right lower extremity wound. This is a workers comp case as it occurred at work. On March 21, 2021, the patient was pinned between a tow motor and her right leg against the wall causing a laceration. She went to the emergency department at [facility] where orthopedics Dr. William was consulted and he reviewed her imaging washed out the wound and repaired in the emergency department. She was discharged home with Xeroform for wound care and crutches and a walking boot. She was also given Keflex and pain medication and was referred to the wound healing center. Since then, the patient states that her sutures have been removed and that she has completed her entire course of Keflex. She denies any systemic or localized signs of infection at this time but is getting moderate amounts of drainage which is serosanguineous. She has not been utilizing any compression. She states that there are a few areas of blackened areas on the wound but they seem to be improving in size. Denies any other aggravating relieving factors. She does follow-up with her orthopedic next week. Past medical, family, and social history reviewed and not pertinent to the current visit and all other systems reviewed and negative with exception of those listed above. Progress of Wound: Stable?no new concerns, patient notes less drainage this week. She did follow-up with orthopedics who did not recommend any changes at this time per patient. unna Boots will be applied today. Objective Data Objective Data Vital Signs: Vital Signs Temp Pulse Resp BP 98.0 F 79 16 112/73 05/02/21 15:20 05/02/21 15:20 05/02/21 15:20 05/02/21 15:20 Weight: 129 lb Body Mass Index (BMI) 25.2 Charges/Coding Procedures Integumentary 111xxx-113xx: 64213 Shy subq tissue 20 sq cm/< Add On Codes: 01857 Shy subq tissue add-on Physical Exam Const alert, oriented x3, no apparent distress, healthy appearing and well nourished General Appearance: cooperative Exam Limitations: no limitations HEENT normocephalic Head and Scalp: normal to inspection Mouth: oral and palatal mucosa normal Eyes General Eye: normal appearance of both eyes Resp normal respiratory effort, normal air movement and no use of accessory muscles Effort and Inspection: able to speak in complete sentences Auscultation: clear to auscultation bilaterally Cardio regular rate, regular rhythm, S1 normal heart sound, S2 normal heart sound, no murmurs and peripheral pulses 2+ throughout Palpation: normal PMI Rate: regular rate Heart Sounds: S1 normal and S2 normal GI normal to inspection, nondistended, normoactive bowel sounds, soft to palpation, non-tender and non-distended Palpation: soft Extremity normal to inspection and full ROM General Extremity: normal exam except as noted Skin Skin Narrative: Right lower extremity, generalized edema, large wound present which is mostly well approximated at laceration repair sites, mostly the wound bed is beefy red and granular without any signs of infection at this time, there are multiple areas of slough and devitalized tissue with no fluctuance or purulence present Neuro oriented x3 and moves all extremities Sensorium / Orientation: awake, alert, oriented to person, oriented to place and oriented to time Psych mental status grossly normal, thought process normal and denies hallucinations Appearance: grossly normal Attitude: calm Activity / Motor Behavior: appropriate eye contact Speech: normal speech Thought Process: normal thought process Thought Content: normal thought content Attention / Concentration: attention grossly intact Insight: insight good Judgement: judgement good Debridement Note Debridement Note Wound debrided: Right lower extremity laceration/wound Laterality: Right Type of Debridement: Excisional debridement Anesthesia Used: 4% Lidocaine Solution and 5% Lidocaine Gel Depth: Down to and including healthy tissue and in the subcutaneous layer Percentage of wound debrided: 100 Instrument Used: 5mm curette and 7mm curette Tissue Removed: Large amount of slough and devitalized tissue Severity: Fat Layer Exposed Amount of bleeding with debridement: Mild Bleeding Controlled with: Pressure Patient tolerated procedure: Patient tolerated procedure well Post-Debridement Measurements and Additional Note: Post-Debridement Measurements/Treatment EMMANUEL - Nurse 1 - General Ulcer Assessment Start: 04/25/21 09:50 Freq: Status: Active Protocol: MERE Activity Type Activity Date Activity User E-Sign Co-Sign Detail Recorded Client Recorded Date Recorded By Document 04/25/21 14:54 DL [id number] 04/25/21 15:04 DL Document 05/02/21 15:20 ML [id number] 05/02/21 15:33 ML 04/25/21 05/02/21 14:54 15:20 WC - Today's Visit Information Type of service Follow-up Visit Follow-up Visit (Physician/IMMIGRATION CONSULTANT (Physician/IMMIGRATION CONSULTANT ) ) Arrival Mode Wheelchair Ambulatory Transfer Assistance Manual Transfer Assist (Other) x1 Patient Identification Verified (Name & Yes Yes ) Patient Requires Transmission-Based No No Precautions Safety Precautions NA Height and Weight Body Mass Index (BMI) 25.2 25.2 BMI Classification Overweight Overweight Vital Signs Temperature (97.8 F-99.1 F) 97.9 F 98.0 F Temperature Source Temporal Temporal Pulse Rate (60-100) 81 79 Pulse Location Monitor Monitor Respiratory Rate (12-18) 18 16 Respiratory rate source Observation Observation Blood Pressure (90/60-120/80) 117/67 112/73 Blood Pressure Mean (mm Hg) 83 86 Source Monitor Monitor Position Sitting Blood Pressure Location Left Arm History Since Last Visit- (Skip if this is Patient's initial visit) Have you changed medications since your No No last visit? Any new allergies or adverse reactions No No Had a fall/change in ADL's that may No No increase risk of falls Signs or symptoms of abuse and/or No No neglect since last visit Have you been in the hospital since your No No last visit? Has dressing in place as prescribed Yes Yes Has compression in place as prescribed Yes N/A Has offloadiing in place as prescribed Yes N/A Experienced any changes in pain level or No No management Left Footwear Regular Shoe Right Footwear Removable Cast Surgical Shoe Walker/Walking with pressure Boot relief insole Pain Scale: 0-10 Numeric Is Patient Pain Free? Yes Yes - Nurse 1 - General Ulcer Measurement Start: 04/25/21 09:50 Freq: Status: Active Protocol: Activity Type Activity Date Activity User E-Sign Co-Sign Detail Recorded Client Recorded Date Recorded By Document 04/25/21 14:54 DL [id number] 04/25/21 15:04 DL Document 05/02/21 15:20 ML [id number] 05/02/21 15:33 ML 04/25/21 05/02/21 14:54 15:20 Wound Center Nurse 1 #1- 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) -Current Size (cm) - Length 21 19 -Current Size (cm) - Width 4 4 -Current Size (cm) - Depth 0.3 0.2 -Total Square Cm 84 76 -Photo Taken No -Exudate Amt Medium Medium -Exudate Type Serosanguineous Serosanguineous -Wound Margin Distinct, Distinct, Outline Outline Attached Attached -Granulation Amt Large (67-100%) Medium (34-66%) -Granulation Quality [place] -Slough/Fibrin Yes -Necrosis Amt Medium (34-66%) Medium (34-66%) -Necrotic Tissue Type Adherent Slough Adherent Slough -Structure Exposed N/A -Texture (Charleen-wound Skin Appearance) Localized Edema Assessed ,Scarring -Moisture (Charleen-wound Skin Appearance) No Abnormality Assessed -Color (Charleen-wound Skin Appearance) No Abnormality Assessed -Temperature (Charleen-wound Skin No Abnormality No Abnormality Appearance) (Pt Warm) (Pt Warm) -Tenderness on Palpation (Charleen-wound No No Skin Appearance) -Ulcer Cleansing Soap and Water Soap and Water -Foul Odor after Cleansing No No -Anesthetic Used 4% Lidocaine 5% Lidocaine Solution Gel Right Calf (cm) 33.1 35 Right Ankle (cm) 22.2 25 WC - Nurse 2 - General Ulcer CM Notes Start: 04/25/21 09:50 Freq: Status: Active Protocol: Activity Type Activity Date Activity User E-Sign Co-Sign Detail Recorded Client Recorded Date Recorded By Document 04/25/21 15:19 MW [id number] 04/25/21 15:32 MW Document 05/02/21 15:34 MW [id number] 05/02/21 15:41 MW 04/25/21 05/02/21 15:19 15:34 Wound Center Nurse 2 #1- 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) -Time 15:19 15:35 -Correct Patient Yes Yes -Correct Side, Site, Position Yes Yes -Correct Procedure Yes Yes -Procedure Performed Yes Yes -Type of Procedure Debridement Debridement -Clinical Debridement Subcutaneous Subcutaneous -Tissue Removed Subcutaneous Subcutaneous -Post Debridement (cm) - Length 22.0 21.0 -Post Debridement (cm) - Width 6.0 7.0 -Post Debridement (cm) - Depth 0.7 0.7 -Total Square (Post) (cm) 132.00 147.00 -Area of Debridement (cm) - Length 22.0 21.0 -Area of Debridement (cm) - Width 6.0 7.0 -Total Square (Area) (cm) 132.00 147.00 -Tunneling No No -Undermining/Tunneling No No -Circular Undermining No No -Wound/Ulcer Outcome Not Healed Not Healed -Ulcer Cleansing Rinsed/ Rinsed/ Irrigated with Irrigated with Saline Saline -Foul Odor after Cleansing No No -Bioengineered Tissue No No -Bleeding Controlled with Pressure Pressure -Offloading No No -Treatment Response Procedure Procedure Tolerated Well Tolerated Well -Debridement - Subq, 1st 20sq cm Yes Yes -Debridement, SubQ, ea addt'l 20sq cm 6 7 or part thereof Pain Scale: 0-10 Numeric Is Patient Pain Free? Yes Yes - Nurse 3 - General Ulcer D/C NN Start: 04/25/21 09:50 Freq: Status: Active Protocol: Activity Type Activity Date Activity User E-Sign Co-Sign Detail Recorded Client Recorded Date Recorded By Document 04/25/21 15:41 DL [id number] 04/25/21 15:47 DL Document 05/02/21 15:53 DL [id number] 05/02/21 15:56 DL 04/25/21 05/02/21 15:41 15:53 Wound Care Nurse 3 #1- 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) -Ulcer Cleansing Soap and Water Soap and Water -Foul Odor after Cleansing No No -Primary Dressing Applied Silvercel Silvercel -Primary Dressing Covered/Secured with Dry Gauze & Roll Gauze, Secured with Tape -Other Covering abd ABD -Silvercel 2 1 Right -Multi-Layered Wrap Application Unna Boot - Right ($) Treatment Response Procedure Procedure Tolerated Well Tolerated Well Pain Scale: 0-10 Numeric Is Patient Pain Free? Yes Yes - Visit Discharge Discharge Condition Stable Stable Ambulatory Status Wheelchair Wheelchair Transportation Private Auto Private Auto Assessment/Plan Assessment/Plan (1) Laceration without foreign body, right lower leg, initial encounter: CODE(S): S81.811A - Laceration without foreign body, right lower leg, initial encounter PLAN: Debridement performed today in clinic as annotated above. Silver cell and Unna boot applied to be changed on the following Thursday. At home wound-care instructions: Plan as above Compression: Double layer Tubigrip's Off-loading: The patient was instructed to avoid pressure and friction on the affected areas. Reposition every 2 hours at minimum. Avoid prolonged standing and/or dangling of legs. When seated, feet should be elevated at chest level. Frequent ambulation is encouraged. Diet: Patient encouraged to increase protein intake while taking caution to avoid high carbohydrate and/or sugar intake. Patient is a non-smoker Labs/cultures/imaging: Cultures held today. Routine baseline lab work held. Vascular studies held. Follow-up: Return to clinic in 1 week for re-evaluation. She will continue following up with her biomedical equipment specialist Dr. William as well return sooner or report to the emergency room should symptoms worsen, or new symptoms arise. This note was generated with [employer] dictation software. It may contain incorrect words, spelling, and punctuation that were not noted in checking the note before signing. I have spent 25 minutes today reviewing labs, records, and history. Time includes coordinating care, interpretation of tests, and counseling the patient/family. This also includes time I spent with the patient for exam, treatment plan, and education as well as documenting clinical information in the electronic health record.
[2021-05-06 13:58] VITALS: BP 115/75; PULSE 75; RESP 16; TEMP 36.7; BMI 25.2
[2021-05-09 14:27] VITALS: BP 100/66; PULSE 84; RESP 18; TEMP 36.2; BMI 25.2
--- NOTE | 2021-05-09 15:30 | PCM.WC.PN ---
History of Present Illness Date of Service: 05/09/21 Chief Complaint: Right lower extremity wound History of Wound: This is a 60-year-old female who presents to the wound healing center today with a right lower extremity wound. This is a workers comp case as it occurred at work. On March 21, 2021, the patient was pinned between a tow motor and her right leg against the wall causing a laceration. She went to the emergency department at [facility] where orthopedics Dr. William was consulted and he reviewed her imaging washed out the wound and repaired in the emergency department. She was discharged home with Xeroform for wound care and crutches and a walking boot. She was also given Keflex and pain medication and was referred to the wound healing center. Since then, the patient states that her sutures have been removed and that she has completed her entire course of Keflex. She denies any systemic or localized signs of infection at this time but is getting moderate amounts of drainage which is serosanguineous. She has not been utilizing any compression. She states that there are a few areas of blackened areas on the wound but they seem to be improving in size. Denies any other aggravating relieving factors. She does follow-up with her orthopedic next week. Past medical, family, and social history reviewed and not pertinent to the current visit and all other systems reviewed and negative with exception of those listed above. Progress of Wound: Stable?no new concerns, patient notes less drainage this week. She did follow-up with orthopedics who did not recommend any changes at this time per patient. unna Boots will be applied today as she did very well with these, will file a C9 to change her dressing to collagen dressing of Promogran. Objective Data Objective Data Vital Signs: Vital Signs Temp Pulse Resp BP 97.2 F L 84 18 100/66 05/09/21 14:27 05/09/21 14:27 05/09/21 14:27 05/09/21 14:27 Oxygen Delivery Method Airvo Weight: 129 lb Body Mass Index (BMI) 25.2 Charges/Coding Procedures Integumentary 111xxx-113xx: 44771 Shy subq tissue 20 sq cm/< Add On Codes: 14159 Shy subq tissue add-on Physical Exam Const alert, oriented x3, no apparent distress, healthy appearing and well nourished General Appearance: cooperative Exam Limitations: no limitations HEENT normocephalic Head and Scalp: normal to inspection Mouth: oral and palatal mucosa normal Eyes General Eye: normal appearance of both eyes Resp normal respiratory effort, normal air movement and no use of accessory muscles Effort and Inspection: able to speak in complete sentences Auscultation: clear to auscultation bilaterally Cardio regular rate, regular rhythm, S1 normal heart sound, S2 normal heart sound, no murmurs and peripheral pulses 2+ throughout Palpation: normal PMI Rate: regular rate Heart Sounds: S1 normal and S2 normal GI normal to inspection, nondistended, normoactive bowel sounds, soft to palpation, non-tender and non-distended Palpation: soft Extremity normal to inspection and full ROM General Extremity: normal exam except as noted Skin Skin Narrative: Right lower extremity, generalized edema, large wound present which is mostly well approximated at laceration repair sites, mostly the wound bed is beefy red and granular without any signs of infection at this time, there are multiple areas of slough and devitalized tissue with no fluctuance or purulence present Neuro oriented x3 and moves all extremities Sensorium / Orientation: awake, alert, oriented to person, oriented to place and oriented to time Psych mental status grossly normal, thought process normal and denies hallucinations Appearance: grossly normal Attitude: calm Activity / Motor Behavior: appropriate eye contact Speech: normal speech Thought Process: normal thought process Thought Content: normal thought content Attention / Concentration: attention grossly intact Insight: insight good Judgement: judgement good Debridement Note Debridement Note Wound debrided: Right lower extremity wound Laterality: Right Type of Debridement: Excisional debridement Anesthesia Used: 4% Lidocaine Solution and 5% Lidocaine Gel Depth: Down to and including healthy tissue and in the subcutaneous layer Percentage of wound debrided: 100 Instrument Used: 5mm curette and 7mm curette Tissue Removed: Slough and devitalized tissue Severity: Fat Layer Exposed Amount of bleeding with debridement: Mild Bleeding Controlled with: Pressure Patient tolerated procedure: Patient tolerated procedure well Post-Debridement Measurements and Additional Note: Post-Debridement Measurements/Treatment EMMANUEL - Nurse 1 - General Ulcer Assessment Start: 04/25/21 09:50 Freq: Status: Active Protocol: MERE Activity Type Activity Date Activity User E-Sign Co-Sign Detail Recorded Client Recorded Date Recorded By Document 04/25/21 14:54 DL [id number] 04/25/21 15:04 DL Document 05/02/21 15:20 ML [id number] 05/02/21 15:33 ML Document 05/06/21 13:58 PL [id number] 05/06/21 14:01 PL Document 05/09/21 14:27 ML [id number] 05/09/21 14:42 ML 04/25/21 05/02/21 05/06/21 14:54 15:20 13:58 WC - Today's Visit Information Type of service Follow-up Visit Follow-up Visit Nurse-only (Physician/JEWEL STRINGER (Physician/JEWEL STRINGER Visit ) ) Arrival Mode Wheelchair Ambulatory Wheelchair Transfer Assistance Manual None Transfer Assist (Other) x1 Patient Identification Verified (Name & Yes Yes Yes ) Patient Requires Transmission-Based No No No Precautions Safety Precautions NA NA Height and Weight Body Mass Index (BMI) 25.2 25.2 25.2 BMI Classification Overweight Overweight Overweight Vital Signs Temperature (97.8 F-99.1 F) 97.9 F 98.0 F 98.1 F Temperature Source Temporal Temporal Temporal Pulse Rate (60-100) 81 79 75 Pulse Location Monitor Monitor Respiratory Rate (12-18) 18 16 16 Respiratory rate source Observation Observation Oxygen Delivery Method Room Air Blood Pressure (90/60-120/80) 117/67 112/73 115/75 Blood Pressure Mean (mm Hg) 83 86 88 Source Monitor Monitor Position Sitting Blood Pressure Location Left Arm History Since Last Visit- (Skip if this is Patient's initial visit) Have you changed medications since your No No No last visit? Any new allergies or adverse reactions No No No Had a fall/change in ADL's that may No No No increase risk of falls Signs or symptoms of abuse and/or No No No neglect since last visit Have you been in the hospital since your No No No last visit? Has dressing in place as prescribed Yes Yes Yes Has compression in place as prescribed Yes N/A Yes Has offloadiing in place as prescribed Yes N/A Yes Experienced any changes in pain level or No No No management Left Footwear Regular Shoe Right Footwear Removable Cast Surgical Shoe Walker/Walking with pressure Boot relief insole Pain Scale: 0-10 Numeric Is Patient Pain Free? Yes Yes Yes 05/09/21 14:27 WC - Today's Visit Information Type of service Follow-up Visit (Physician/JEWEL STRINGER ) Arrival Mode Walker Transfer Assistance None Transfer Assist (Other) Patient Identification Verified (Name & Yes ) Patient Requires Transmission-Based No Precautions Safety Precautions NA Height and Weight Body Mass Index (BMI) 25.2 BMI Classification Overweight Vital Signs Temperature (97.8 F-99.1 F) 97.2 F L Temperature Source Temporal Pulse Rate (60-100) 84 Pulse Location Monitor Respiratory Rate (12-18) 18 Respiratory rate source Observation Oxygen Delivery Method Airvo Blood Pressure (90/60-120/80) 100/66 Blood Pressure Mean (mm Hg) 77 Source Monitor Position Sitting Blood Pressure Location Left Arm History Since Last Visit- (Skip if this is Patient's initial visit) Have you changed medications since your No last visit? Any new allergies or adverse reactions No Had a fall/change in ADL's that may No increase risk of falls Signs or symptoms of abuse and/or No neglect since last visit Have you been in the hospital since your No last visit? Has dressing in place as prescribed Yes Has compression in place as prescribed Yes Has offloadiing in place as prescribed N/A Experienced any changes in pain level or No management Left Footwear Regular Shoe Right Footwear Surgical Shoe with pressure relief insole Pain Scale: 0-10 Numeric Is Patient Pain Free? Yes WC - Nurse 1 - General Ulcer Measurement Start: 04/25/21 09:50 Freq: Status: Active Protocol: Activity Type Activity Date Activity User E-Sign Co-Sign Detail Recorded Client Recorded Date Recorded By Document 04/25/21 14:54 DL [id number] 04/25/21 15:04 DL Document 05/02/21 15:20 ML [id number] 05/02/21 15:33 ML Document 05/09/21 14:27 ML [id number] 05/09/21 14:42 ML 04/25/21 05/02/21 05/09/21 14:54 15:20 14:27 Wound Center Nurse 1 #1- 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) -Current Size (cm) - Length 21 19 19 -Current Size (cm) - Width 4 4 4 -Current Size (cm) - Depth 0.3 0.2 0.4 -Total Square Cm 84 76 76 -Photo Taken No -Exudate Amt Medium Medium Small -Exudate Type Serosanguineous Serosanguineous Serosanguineous -Wound Margin Distinct, Distinct, Distinct, Outline Outline Outline Attached Attached Attached -Granulation Amt Large (67-100%) Medium (34-66%) Medium (34-66%) -Granulation Quality [place] -Slough/Fibrin Yes Yes -Necrosis Amt Medium (34-66%) Medium (34-66%) Medium (34-66%) -Necrotic Tissue Type Adherent Slough Adherent Slough -Structure Exposed N/A -Texture (Charleen-wound Skin Appearance) Localized Edema Assessed Assessed ,Scarring -Moisture (Charleen-wound Skin Appearance) No Abnormality Assessed Assessed -Color (Charleen-wound Skin Appearance) No Abnormality Assessed Assessed -Temperature (Charleen-wound Skin No Abnormality No Abnormality Hot Appearance) (Pt Warm) (Pt Warm) -Tenderness on Palpation (Chalreen-wound No No Skin Appearance) -Ulcer Cleansing Soap and Water Soap and Water Soap and Water -Foul Odor after Cleansing No No No -Anesthetic Used 4% Lidocaine 5% Lidocaine 5% Lidocaine Solution Gel Gel Right Calf (cm) 33.1 35 34 Right Ankle (cm) 22.2 25 24 WC - Nurse 2 - General Ulcer CM Notes Start: 04/25/21 09:50 Freq: Status: Active Protocol: Activity Type Activity Date Activity User E-Sign Co-Sign Detail Recorded Client Recorded Date Recorded By Document 04/25/21 15:19 MW [id number] 04/25/21 15:32 MW Document 05/02/21 15:34 MW [id number] 05/02/21 15:41 MW Document 05/09/21 14:56 MW [id number] 05/09/21 15:05 MW 04/25/21 05/02/21 05/09/21 15:19 15:34 14:56 Wound Center Nurse 2 #1- 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) -Time 15:19 15:35 14:56 -Correct Patient Yes Yes Yes -Correct Side, Site, Position Yes Yes Yes -Correct Procedure Yes Yes Yes -Procedure Performed Yes Yes Yes -Type of Procedure Debridement Debridement Debridement -Clinical Debridement Subcutaneous Subcutaneous Subcutaneous -Tissue Removed Subcutaneous Subcutaneous Subcutaneous -Post Debridement (cm) - Length 22.0 21.0 20.5 -Post Debridement (cm) - Width 6.0 7.0 6.0 -Post Debridement (cm) - Depth 0.7 0.7 1.2 -Total Square (Post) (cm) 132.00 147.00 123.00 -Area of Debridement (cm) - Length 22.0 21.0 20.5 -Area of Debridement (cm) - Width 6.0 7.0 6.0 -Total Square (Area) (cm) 132.00 147.00 123.00 -Tunneling No No No -Undermining/Tunneling No No No -Circular Undermining No No No -Wound/Ulcer Outcome Not Healed Not Healed Not Healed -Ulcer Cleansing Rinsed/ Rinsed/ Rinsed/ Irrigated with Irrigated with Irrigated with Saline Saline Saline -Foul Odor after Cleansing No No No -Bioengineered Tissue No No No -Bleeding Controlled with Pressure Pressure Pressure -Offloading No No No -Treatment Response Procedure Procedure Procedure Tolerated Well Tolerated Well Tolerated Well -Debridement - Subq, 1st 20sq cm Yes Yes Yes -Debridement, SubQ, ea addt'l 20sq cm 6 7 6 or part thereof Pain Scale: 0-10 Numeric Is Patient Pain Free? Yes Yes Yes WC - Nurse 3 - General Ulcer D/C NN Start: 04/25/21 09:50 Freq: Status: Active Protocol: Activity Type Activity Date Activity User E-Sign Co-Sign Detail Recorded Client Recorded Date Recorded By Document 04/25/21 15:41 DL [id number] 04/25/21 15:47 DL Document 05/02/21 15:53 DL [id number] 05/02/21 15:56 DL Document 05/06/21 13:58 PL [id number] 05/06/21 14:01 PL Document 05/09/21 15:12 AK [id number] 05/09/21 15:13 AK 04/25/21 05/02/21 05/06/21 15:41 15:53 13:58 Wound Care Nurse 3 #1- 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) -Ulcer Cleansing Soap and Water Soap and Water Soap and Water -Foul Odor after Cleansing No No No -Negative Pressure Wound Therapy -Primary Dressing Applied Silvercel Silvercel Silvercel -Other Dressing ABD -Primary Dressing Covered/Secured with Dry Gauze & Roll Gauze, Secured with Tape -Other Covering abd ABD -Silvercel 2 1 1 Right -Lotion applied to leg before compression wrap -Multi-Layered Wrap Application Unna Boot - Unna Boot - Right ($) Right ($) -Compression Wrap Unna Boot ($) ( single) Treatment Response Procedure Procedure Tolerated Well Tolerated Well Vital Signs Temperature (97.8 F-99.1 F) 98.1 F Temperature Source Temporal Pulse Rate (60-100) 75 Respiratory Rate (12-18) 16 Oxygen Delivery Method Room Air Blood Pressure (90/60-120/80) 115/75 Blood Pressure Mean (mm Hg) 88 Pain Scale: 0-10 Numeric Is Patient Pain Free? Yes Yes Yes WC - Visit Discharge Discharge Condition Stable Stable Stable Ambulatory Status Wheelchair Wheelchair Wheelchair Transportation Private Auto Private Auto Private Auto Accompanied by Medication Reconcilliation completed & provided to patient/care provider Clinical Summary of Care Provided 05/09/21 15:12 Wound Care Nurse 3 #1- R TWIARI/MED LE CLUSTER (WORKPLACE TRAUMA) -Ulcer Cleansing Rinsed/ Irrigated with Saline -Foul Odor after Cleansing No -Negative Pressure Wound Therapy N/A -Primary Dressing Applied Silvercel -Other Dressing ABD -Primary Dressing Covered/Secured with -Other Covering -Silvercel 1 Right -Lotion applied to leg before No compression wrap -Multi-Layered Wrap Application Unna Boot - Right ($) -Compression Wrap Treatment Response Vital Signs Temperature (97.8 F-99.1 F) Temperature Source Pulse Rate (60-100) Respiratory Rate (12-18) Oxygen Delivery Method Blood Pressure (90/60-120/80) Blood Pressure Mean (mm Hg) Pain Scale: 0-10 Numeric Is Patient Pain Free? Yes WC - Visit Discharge Discharge Condition Stable Ambulatory Status Transportation Private Auto Accompanied by daughter Medication Reconcilliation completed & No provided to patient/care provider Clinical Summary of Care Provided Yes Assessment/Plan Assessment/Plan (1) Laceration without foreign body, right lower leg, initial encounter: CODE(S): S81.811A - Laceration without foreign body, right lower leg, initial encounter PLAN: Debridement performed today in clinic as annotated above. Silver cell and Unna boot applied to be changed on the following Thursday. At home wound-care instructions: Plan as above Compression: Unna boot Off-loading: The patient was instructed to avoid pressure and friction on the affected areas. Reposition every 2 hours at minimum. Avoid prolonged standing and/or dangling of legs. When seated, feet should be elevated at chest level. Frequent ambulation is encouraged. Diet: Patient encouraged to increase protein intake while taking caution to avoid high carbohydrate and/or sugar intake. Patient is a non-smoker Labs/cultures/imaging: Cultures held today. Routine baseline lab work held. Vascular studies held. Follow-up: Return to clinic in 1 week for re-evaluation. She will continue following up with her certified coding specialist Dr. William as well return sooner or report to the emergency room should symptoms worsen, or new symptoms arise. This note was generated with [employer] dictation software. It may contain incorrect words, spelling, and punctuation that were not noted in checking the note before signing. I have spent 25 minutes today reviewing labs, records, and history. Time includes coordinating care, interpretation of tests, and counseling the patient/family. This also includes time I spent with the patient for exam, treatment plan, and education as well as documenting clinical information in the electronic health record.
[2021-05-14 13:59] VITALS: BP 123/69; PULSE 86; TEMP 36.1; BMI 25.2
[2021-05-16 15:07] VITALS: BP 109/69; PULSE 82; RESP 16; TEMP 35.9; BMI 25.2
--- NOTE | 2021-05-16 16:43 | PCM.WC.PN ---
History of Present Illness Date of Service: 05/16/21 Chief Complaint: Right lower extremity wound History of Wound: This is a 60-year-old female who presents to the wound healing center today with a right lower extremity wound. This is a workers comp case as it occurred at work. On March 21, 2021, the patient was pinned between a tow motor and her right leg against the wall causing a laceration. She went to the emergency department at [facility] where orthopedics Dr. William was consulted and he reviewed her imaging washed out the wound and repaired in the emergency department. She was discharged home with Xeroform for wound care and crutches and a walking boot. She was also given Keflex and pain medication and was referred to the wound healing center. Since then, the patient states that her sutures have been removed and that she has completed her entire course of Keflex. She denies any systemic or localized signs of infection at this time but is getting moderate amounts of drainage which is serosanguineous. She has not been utilizing any compression. She states that there are a few areas of blackened areas on the wound but they seem to be improving in size. Denies any other aggravating relieving factors. She does follow-up with her orthopedic next week. Past medical, family, and social history reviewed and not pertinent to the current visit and all other systems reviewed and negative with exception of those listed above. Progress of Wound: Stable?no new concerns, patient notes less drainage this week. She did follow-up with orthopedics who did not recommend any changes at this time per patient. unna Boots will be applied today as she did very well with these, will file a C9 to change her dressing to collagen dressing of Promogran and 3M wrap. Objective Data Objective Data Vital Signs: Vital Signs Temp Pulse Resp BP 96.7 F L 82 16 109/69 05/16/21 15:07 05/16/21 15:07 05/16/21 15:07 05/16/21 15:07 Oxygen Delivery Method Room Air Weight: 129 lb Body Mass Index (BMI) 25.2 Charges/Coding Procedures Integumentary 111xxx-113xx: 00408 Shy subq tissue 20 sq cm/< Add On Codes: 62537 Shy subq tissue add-on Physical Exam Const alert, oriented x3, no apparent distress, healthy appearing and well nourished General Appearance: cooperative Exam Limitations: no limitations HEENT normocephalic Head and Scalp: normal to inspection Mouth: oral and palatal mucosa normal Eyes General Eye: normal appearance of both eyes Resp normal respiratory effort, normal air movement and no use of accessory muscles Effort and Inspection: able to speak in complete sentences Auscultation: clear to auscultation bilaterally Cardio regular rate, regular rhythm, S1 normal heart sound, S2 normal heart sound, no murmurs and peripheral pulses 2+ throughout Palpation: normal PMI Rate: regular rate Heart Sounds: S1 normal and S2 normal GI normal to inspection, nondistended, normoactive bowel sounds, soft to palpation, non-tender and non-distended Palpation: soft Extremity normal to inspection and full ROM General Extremity: normal exam except as noted Skin Skin Narrative: Right lower extremity, generalized edema, large wound present which is mostly well approximated at laceration repair sites, mostly the wound bed is beefy red and granular without any signs of infection at this time, there are multiple areas of slough and devitalized tissue with no fluctuance or purulence present Neuro oriented x3 and moves all extremities Sensorium / Orientation: awake, alert, oriented to person, oriented to place and oriented to time Psych mental status grossly normal, thought process normal and denies hallucinations Appearance: grossly normal Attitude: calm Activity / Motor Behavior: appropriate eye contact Speech: normal speech Thought Process: normal thought process Thought Content: normal thought content Attention / Concentration: attention grossly intact Insight: insight good Judgement: judgement good Debridement Note Debridement Note Wound debrided: Right lower extremity traumatic wound Laterality: Right Type of Debridement: Excisional debridement Anesthesia Used: 5% Lidocaine Gel Depth: Down to and including healthy tissue and in the subcutaneous layer Percentage of wound debrided: 100 Instrument Used: 5mm curette Tissue Removed: Slough and devitalized tissue Severity: Limited To Skin Breakdown Amount of bleeding with debridement: Mild Bleeding Controlled with: Pressure Patient tolerated procedure: Patient tolerated procedure well Post-Debridement Measurements and Additional Note: Post-Debridement Measurements/Treatment WC - Nurse 1 - General Ulcer Assessment Start: 04/25/21 09:50 Freq: Status: Active Protocol: MERE Activity Type Activity Date Activity User E-Sign Co-Sign Detail Recorded Client Recorded Date Recorded By Document 04/25/21 14:54 DL [id number] 01/06/22 15:04 DL Document 05/02/21 15:20 ML [id number] 05/02/21 15:33 ML Document 05/06/21 13:58 PL [id number] 05/06/21 14:01 PL Document 05/09/21 14:27 ML [id number] 05/09/21 14:42 ML Document 05/14/21 13:59 AK [id number] 05/14/21 14:02 AK Document 05/16/21 15:07 BMF [id number] 05/16/21 15:13 BMF 04/25/21 05/02/21 05/06/21 14:54 15:20 13:58 WC - Today's Visit Information Type of service Follow-up Visit Follow-up Visit Nurse-only (Physician/WATCH AND CLOCK REPAIR CLERK (Physician/WATCH AND CLOCK REPAIR CLERK Visit ) ) Arrival Mode Wheelchair Ambulatory Wheelchair Transfer Assistance Manual None Transfer Assist (Other) x1 Accompanied by Patient Identification Verified (Name & Yes Yes Yes ) Patient Requires Transmission-Based No No No Precautions Safety Precautions NA NA Height and Weight Body Mass Index (BMI) 25.2 25.2 25.2 BMI Classification Overweight Overweight Overweight Vital Signs Temperature (97.8 F-99.1 F) 97.9 F 98.0 F 98.1 F Temperature Source Temporal Temporal Temporal Pulse Rate (60-100) 81 79 75 Pulse Location Monitor Monitor Respiratory Rate (12-18) 18 16 16 Respiratory rate source Observation Observation Oxygen Delivery Method Room Air Blood Pressure (90/60-120/80) 117/67 112/73 115/75 Blood Pressure Mean (mm Hg) 83 86 88 Source Monitor Monitor Position Sitting Blood Pressure Location Left Arm History Since Last Visit- (Skip if this is Patient's initial visit) Have you changed medications since your No No No last visit? Any new allergies or adverse reactions No No No Had a fall/change in ADL's that may No No No increase risk of falls Signs or symptoms of abuse and/or No No No neglect since last visit Have you been in the hospital since your No No No last visit? Has dressing in place as prescribed Yes Yes Yes Has compression in place as prescribed Yes N/A Yes Has offloadiing in place as prescribed Yes N/A Yes Experienced any changes in pain level or No No No management Left Footwear Regular Shoe Right Footwear Removable Cast Surgical Shoe Walker/Walking with pressure Boot relief insole Pain Scale: 0-10 Numeric Is Patient Pain Free? Yes Yes Yes 05/09/21 05/14/21 05/16/21 14:27 13:59 15:07 WC - Today's Visit Information Type of service Follow-up Visit Nurse-only Follow-up Visit (Physician/WATCH AND CLOCK REPAIR CLERK Visit (Physician/WATCH AND CLOCK REPAIR CLERK ) ) Arrival Mode Walker Ambulatory, Ambulatory, Walker Walker Transfer Assistance None None Transfer Assist (Other) Accompanied by daughter Patient Identification Verified (Name & Yes Yes Yes ) Patient Requires Transmission-Based No No No Precautions Safety Precautions NA NA Height and Weight Body Mass Index (BMI) 25.2 25.2 25.2 BMI Classification Overweight Overweight Overweight Vital Signs Temperature (97.8 F-99.1 F) 97.2 F L 96.9 F L 96.7 F L Temperature Source Temporal Temporal Temporal Pulse Rate (60-100) 84 86 82 Pulse Location Monitor Monitor Monitor Respiratory Rate (12-18) 18 16 Respiratory rate source Observation Observation Oxygen Delivery Method Airvo Room Air Blood Pressure (90/60-120/80) 100/66 123/69 H 109/69 Blood Pressure Mean (mm Hg) 77 87 82 Source Monitor Monitor Monitor Position Sitting Sitting Blood Pressure Location Left Arm Right Arm History Since Last Visit- (Skip if this is Patient's initial visit) Have you changed medications since your No No No last visit? Any new allergies or adverse reactions No No No Had a fall/change in ADL's that may No No No increase risk of falls Signs or symptoms of abuse and/or No No No neglect since last visit Have you been in the hospital since your No No No last visit? Has dressing in place as prescribed Yes Yes Yes Has compression in place as prescribed Yes Yes Yes Has offloadiing in place as prescribed N/A Yes Yes Experienced any changes in pain level or No No No management Left Footwear Regular Shoe Removable Cast Regular Shoe Walker/Walking Boot Right Footwear Surgical Shoe Regular Shoe Removable Cast with pressure Walker/Walking relief insole Boot Pain Scale: 0-10 Numeric Is Patient Pain Free? Yes Yes Yes - Nurse 1 - General Ulcer Measurement Start: 04/25/21 09:50 Freq: Status: Active Protocol: Activity Type Activity Date Activity User E-Sign Co-Sign Detail Recorded Client Recorded Date Recorded By Document 04/25/21 14:54 DL [id number] 04/25/21 15:04 DL Document 05/02/21 15:20 ML [id number] 05/02/21 15:33 ML Document 05/09/21 14:27 ML [id number] 05/09/21 14:42 ML Document 05/16/21 15:07 BM [id number] 05/16/21 15:13 BMF 04/25/21 05/02/21 05/09/21 14:54 15:20 14:27 Wound Center Nurse 1 #1- 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) -Combined with other wound -Current Size (cm) - Length 21 19 19 -Current Size (cm) - Width 4 4 4 -Current Size (cm) - Depth 0.3 0.2 0.4 -Total Square Cm 84 76 76 -Photo Taken No -Epithelialization -Tunneling -Undermining/Tunneling -Circular Undermining -Exudate Amt Medium Medium Small -Exudate Type Serosanguineous Serosanguineous Serosanguineous -Wound Margin Distinct, Distinct, Distinct, Outline Outline Outline Attached Attached Attached -Granulation Amt Large (67-100%) Medium (34-66%) Medium (34-66%) -Granulation Quality Dumb Hundred -Slough/Fibrin Yes Yes -Necrosis Amt Medium (34-66%) Medium (34-66%) Medium (34-66%) -Necrotic Tissue Type Adherent Slough Adherent Slough -Structure Exposed N/A -Texture (Charleen-wound Skin Appearance) Localized Edema Assessed Assessed ,Scarring -Moisture (Charleen-wound Skin Appearance) No Abnormality Assessed Assessed -Color (Charleen-wound Skin Appearance) No Abnormality Assessed Assessed -Temperature (Charleen-wound Skin No Abnormality No Abnormality Hot Appearance) (Pt Warm) (Pt Warm) -Tenderness on Palpation (Charleen-wound No No Skin Appearance) -Ulcer Cleansing Soap and Water Soap and Water Soap and Water -Foul Odor after Cleansing No No No -Anesthetic Used 4% Lidocaine 5% Lidocaine 5% Lidocaine Solution Gel Gel Lower Limb Edema Present Right Calf (cm) 33.1 35 34 Right Ankle (cm) 22.2 25 24 05/16/21 15:07 Wound Center Nurse 1 #1- 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) -Combined with other wound No -Current Size (cm) - Length 19.5 -Current Size (cm) - Width 6 -Current Size (cm) - Depth 0.1 -Total Square Cm 117.0 -Photo Taken No -Epithelialization Small 1-33% -Tunneling No -Undermining/Tunneling No -Circular Undermining No -Exudate Amt Medium -Exudate Type Serosanguineous -Wound Margin Distinct, Outline Attached -Granulation Amt Medium (34-66%) -Granulation Quality Red -Slough/Fibrin Yes -Necrosis Amt None Present (0 %) -Necrotic Tissue Type Adherent Slough -Structure Exposed -Texture (Charleen-wound Skin Appearance) Assessed, Scarring -Moisture (Charleen-wound Skin Appearance) Assessed,Dry/ Scaly -Color (Charleen-wound Skin Appearance) Assessed, Erythema -Temperature (Charleen-wound Skin No Abnormality Appearance) (Pt Warm) -Tenderness on Palpation (Charleen-wound No Skin Appearance) -Ulcer Cleansing Soap and Water -Foul Odor after Cleansing No -Anesthetic Used 4% Lidocaine Solution Lower Limb Edema Present Yes Right Calf (cm) 34.5 Right Ankle (cm) 24 WC - Nurse 2 - General Ulcer CM Notes Start: 04/25/21 09:50 Freq: Status: Active Protocol: Activity Type Activity Date Activity User E-Sign Co-Sign Detail Recorded Client Recorded Date Recorded By Document 04/25/21 15:19 MW [id number] 04/25/21 15:32 MW Document 05/02/21 15:34 MW [id number] 05/02/21 15:41 MW Document 05/09/21 14:56 MW [id number] 05/09/21 15:05 MW Document 05/16/21 15:18 MW [id number] 05/16/21 15:24 MW 04/25/21 05/02/21 05/09/21 15:19 15:34 14:56 Wound Center Nurse 2 #1- 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) -Time 15:19 15:35 14:56 -Correct Patient Yes Yes Yes -Correct Side, Site, Position Yes Yes Yes -Correct Procedure Yes Yes Yes -Procedure Performed Yes Yes Yes -Type of Procedure Debridement Debridement Debridement -Clinical Debridement Subcutaneous Subcutaneous Subcutaneous -Tissue Removed Subcutaneous Subcutaneous Subcutaneous -Post Debridement (cm) - Length 22.0 21.0 20.5 -Post Debridement (cm) - Width 6.0 7.0 6.0 -Post Debridement (cm) - Depth 0.7 0.7 1.2 -Total Square (Post) (cm) 132.00 147.00 123.00 -Area of Debridement (cm) - Length 22.0 21.0 20.5 -Area of Debridement (cm) - Width 6.0 7.0 6.0 -Total Square (Area) (cm) 132.00 147.00 123.00 -Tunneling No No No -Undermining/Tunneling No No No -Circular Undermining No No No -Wound/Ulcer Outcome Not Healed Not Healed Not Healed -Ulcer Cleansing Rinsed/ Rinsed/ Rinsed/ Irrigated with Irrigated with Irrigated with Saline Saline Saline -Foul Odor after Cleansing No No No -Bioengineered Tissue No No No -Bleeding Controlled with Pressure Pressure Pressure -Offloading No No No -Treatment Response Procedure Procedure Procedure Tolerated Well Tolerated Well Tolerated Well -Debridement - Subq, 1st 20sq cm Yes Yes Yes -Debridement, SubQ, ea addt'l 20sq cm 6 7 6 or part thereof Pain Scale: 0-10 Numeric Is Patient Pain Free? Yes Yes Yes 05/16/21 15:18 Wound Center Nurse 2 #1- 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) -Time 15:18 -Correct Patient Yes -Correct Side, Site, Position Yes -Correct Procedure Yes -Procedure Performed Yes -Type of Procedure Debridement -Clinical Debridement Subcutaneous -Tissue Removed Subcutaneous -Post Debridement (cm) - Length 18.5 -Post Debridement (cm) - Width 3.5 -Post Debridement (cm) - Depth 1.0 -Total Square (Post) (cm) 64.75 -Area of Debridement (cm) - Length 18.5 -Area of Debridement (cm) - Width 3.5 -Total Square (Area) (cm) 64.75 -Tunneling No -Undermining/Tunneling No -Circular Undermining No -Wound/Ulcer Outcome Not Healed -Ulcer Cleansing Rinsed/ Irrigated with Saline -Foul Odor after Cleansing No -Bioengineered Tissue No -Bleeding Controlled with Pressure -Offloading No -Treatment Response Procedure Tolerated Well -Debridement - Subq, 1st 20sq cm Yes -Debridement, SubQ, ea addt'l 20sq cm 3 or part thereof Pain Scale: 0-10 Numeric Is Patient Pain Free? Yes WC - Nurse 3 - General Ulcer D/C NN Start: 04/25/21 09:50 Freq: Status: Active Protocol: Activity Type Activity Date Activity User E-Sign Co-Sign Detail Recorded Client Recorded Date Recorded By Document 04/25/21 15:41 DL [id number] 04/25/21 15:47 DL Document 05/02/21 15:53 DL [id number] 05/02/21 15:56 DL Document 05/06/21 13:58 PL [id number] 05/06/21 14:01 PL Document 05/09/21 15:12 AK [id number] 05/09/21 15:13 AK Document 05/14/21 13:59 AK [id number] 05/14/21 14:02 AK Document 05/16/21 15:48 AK [id number] 05/16/21 15:51 AK 04/25/21 05/02/21 05/06/21 15:41 15:53 13:58 Wound Care Nurse 3 #1- 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) -Ulcer Cleansing Soap and Water Soap and Water Soap and Water -Foul Odor after Cleansing No No No -Negative Pressure Wound Therapy -Primary Dressing Applied Silvercel Silvercel Silvercel -Other Dressing ABD -Primary Dressing Covered/Secured with Dry Gauze & Roll Gauze, Secured with Tape -Other Covering abd ABD -Silvercel 2 1 1 Right -Lotion applied to leg before compression wrap -Multi-Layered Wrap Application Unna Boot - Unna Boot - Right ($) Right ($) -Compression Wrap Unna Boot ($) ( single) Treatment Response Procedure Procedure Tolerated Well Tolerated Well Vital Signs Temperature (97.8 F-99.1 F) 98.1 F Temperature Source Temporal Pulse Rate (60-100) 75 Pulse Location Respiratory Rate (12-18) 16 Oxygen Delivery Method Room Air Blood Pressure (90/60-120/80) 115/75 Blood Pressure Mean (mm Hg) 88 Source Pain Scale: 0-10 Numeric Is Patient Pain Free? Yes Yes Yes WC - Visit Discharge Discharge Condition Stable Stable Stable Ambulatory Status Wheelchair Wheelchair Wheelchair Transportation [employer] Accompanied by Medication Reconcilliation completed & provided to patient/care provider Clinical Summary of Care Provided 05/09/21 05/14/21 05/16/21 15:12 13:59 15:48 Wound Care Nurse 3 #1- 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) -Ulcer Cleansing Rinsed/ Rinsed/ Rinsed/ Irrigated with Irrigated with Irrigated with Saline Saline Saline -Foul Odor after Cleansing No No -Negative Pressure Wound Therapy N/A N/A -Primary Dressing Applied Silvercel Silvercel Silvercel -Other Dressing ABD -Primary Dressing Covered/Secured with Dry Gauze -Other Covering -Silvercel 1 1 1 Right -Lotion applied to leg before No No No compression wrap -Multi-Layered Wrap Application Unna Boot - Unna Boot - Unna Boot - Right ($) Right ($) Right ($) -Compression Wrap Treatment Response Vital Signs Temperature (97.8 F-99.1 F) 96.9 F L Temperature Source Temporal Pulse Rate (60-100) 86 Pulse Location Monitor Respiratory Rate (12-18) Oxygen Delivery Method Blood Pressure (90/60-120/80) 123/69 H Blood Pressure Mean (mm Hg) 87 Source Monitor Pain Scale: 0-10 Numeric Is Patient Pain Free? Yes Yes Yes WC - Visit Discharge Discharge Condition Stable Stable Stable Ambulatory Status Ambulatory, Ambulatory, Walker Walker Transportation [employer] Accompanied by daughter Medication Reconcilliation completed & No No No provided to patient/care provider Clinical Summary of Care Provided Yes Yes Yes Assessment/Plan Assessment/Plan (1) Laceration without foreign body, right lower leg, initial encounter: CODE(S): S81.811A - Laceration without foreign body, right lower leg, initial encounter PLAN: Debridement performed today in clinic as annotated above. Silver cell and Unna boot applied to be changed on the following Thursday. At home wound-care instructions: Plan as above Compression: Unna boot Off-loading: The patient was instructed to avoid pressure and friction on the affected areas. Reposition every 2 hours at minimum. Avoid prolonged standing and/or dangling of legs. When seated, feet should be elevated at chest level. Frequent ambulation is encouraged. Diet: Patient encouraged to increase protein intake while taking caution to avoid high carbohydrate and/or sugar intake. Patient is a non-smoker Labs/cultures/imaging: Cultures held today. Routine baseline lab work held. Vascular studies held. Follow-up: Return to clinic in 1 week for re-evaluation. She will continue following up with her custom framing specialist Dr. William as well, return sooner or report to the emergency room should symptoms worsen, or new symptoms arise. This note was generated with [employer] dictation software. It may contain incorrect words, spelling, and punctuation that were not noted in checking the note before signing. I have spent 25 minutes today reviewing labs, records, and history. Time includes coordinating care, interpretation of tests, and counseling the patient/family. This also includes time I spent with the patient for exam, treatment plan, and education as well as documenting clinical information in the electronic health record.
[2021-05-20 14:56] VITALS: BP 129/73; RESP 16; TEMP 35.8; BMI 25.2
== END 2021-05-20 23:59 ==
LOC: WC 15:00
PROVIDERS: PCP Family Medicine; Visit Provider Nurse Practitioner Family
DX: S81.811D Laceration without foreign body, right lower leg, subsequent encounter (principal); W23.0XXD Caught, crushed, jammed, or pinched between moving objects, subsequent encounter; Y99.0 Civilian activity done for income or pay; E66.3 Overweight; Z68.25 Body mass index [BMI] 25.0-25.9, adult; Z79.82 Long term (current) use of aspirin; Z79.899 Other long term (current) drug therapy
CPT/HCPCS: 11042; 11045; 29580

== ENCOUNTER 2021-06-17 09:00 | Outpatient (RCR) | payer OTHER, SELFPAY ==
[2021-05-21 00:43] VITALS: BP 129/73; PULSE 82; RESP 16; TEMP 35.8; BMI 25.2
[2021-05-30 15:43] VITALS: BP 114/46; PULSE 84; RESP 16; TEMP 36.6; BMI 25.2
[2021-05-31 10:10] VITALS: BP 114/58; PULSE 65; RESP 18; TEMP 36.1
--- NOTE | 2021-05-31 16:58 | PCM.WC.PN ---
History of Present Illness Date of Service: 05/30/21 Chief Complaint: Right lower extremity wound History of Wound: This is a 60-year-old female who presents to the wound healing center today with a right lower extremity wound. This is a workers comp case as it occurred at work. On March 21, 2021, the patient was pinned between a tow motor and her right leg against the wall causing a laceration. She went to the emergency department at [facility] where orthopedics Dr. William was consulted and he reviewed her imaging washed out the wound and repaired in the emergency department. She was discharged home with Xeroform for wound care and crutches and a walking boot. She was also given Keflex and pain medication and was referred to the wound healing center. Since then, the patient states that her sutures have been removed and that she has completed her entire course of Keflex. She denies any systemic or localized signs of infection at this time but is getting moderate amounts of drainage which is serosanguineous. She has not been utilizing any compression. She states that there are a few areas of blackened areas on the wound but they seem to be improving in size. Denies any other aggravating relieving factors. She does follow-up with her orthopedic next week. Past medical, family, and social history reviewed and not pertinent to the current visit and all other systems reviewed and negative with exception of those listed above. Progress of Wound: Stable, no new concerns, patient does plan to follow-up with her orthopedist Dr. Wliliam tomorrow, she was approved for Promogran and 3M wraps which will be initiated tomorrow after her appointment with her orthopedist Objective Data Objective Data Vital Signs: Vital Signs Temp Pulse Resp BP 97 F L 65 18 114/58 L 05/31/21 10:10 05/31/21 10:10 05/31/21 10:10 05/31/21 10:10 Weight: 129 lb Body Mass Index (BMI) 25.2 Charges/Coding Procedures Integumentary 111xxx-113xx: [id number] Shy subq tissue 20 sq cm/< Physical Exam Const alert, oriented x3, no apparent distress, healthy appearing and well nourished General Appearance: cooperative Exam Limitations: no limitations HEENT normocephalic Head and Scalp: normal to inspection Mouth: oral and palatal mucosa normal Eyes General Eye: normal appearance of both eyes Resp normal respiratory effort, normal air movement and no use of accessory muscles Effort and Inspection: able to speak in complete sentences Auscultation: clear to auscultation bilaterally Cardio regular rate, regular rhythm, S1 normal heart sound, S2 normal heart sound, no murmurs and peripheral pulses 2+ throughout Palpation: normal PMI Rate: regular rate Heart Sounds: S1 normal and S2 normal GI normal to inspection, nondistended, normoactive bowel sounds, soft to palpation, non-tender and non-distended Palpation: soft Extremity normal to inspection and full ROM General Extremity: normal exam except as noted Skin Skin Narrative: Right lower extremity, generalized edema, wound has improved immensely and is now smaller and beefy red and granular without any signs of obvious infection Neuro oriented x3 and moves all extremities Sensorium / Orientation: awake, alert, oriented to person, oriented to place and oriented to time Psych mental status grossly normal, thought process normal and denies hallucinations Appearance: grossly normal Attitude: calm Activity / Motor Behavior: appropriate eye contact Speech: normal speech Thought Process: normal thought process Thought Content: normal thought content Attention / Concentration: attention grossly intact Insight: insight good Judgement: judgement good Debridement Note Debridement Note Wound debrided: Left lower extremity wound Laterality: Left Type of Debridement: Excisional debridement Anesthesia Used: 5% Lidocaine Gel Depth: Down to and including healthy tissue and in the subcutaneous layer Percentage of wound debrided: 100 Instrument Used: 5mm curette Post-Debridement Measurements and Additional Note: Post-Debridement Measurements/Treatment EMMANUEL - Nurse 1 - General Ulcer Assessment Start: 05/30/21 15:42 Freq: Status: Active Protocol: MERE Activity Type Activity Date Activity User E-Sign Co-Sign Detail Recorded Client Recorded Date Recorded By Document 05/30/21 15:43 ML [id number] 05/30/21 15:55 ML 05/30/21 15:43 - Today's Visit Information Type of service Follow-up Visit (Physician/FRAME REPAIRER ) Arrival Mode Ambulatory Transfer Assistance None Patient Identification Verified (Name & Yes ) Patient Requires Transmission-Based No Precautions Safety Precautions NA Height and Weight Body Mass Index (BMI) 25.2 BMI Classification Overweight Vital Signs Temperature (97.8 F-99.1 F) 97.9 F Temperature Source Temporal Pulse Rate (60-100) 84 Pulse Location Monitor Respiratory Rate (12-18) 16 Respiratory rate source Observation Blood Pressure (90/60-120/80) 114/46 L Blood Pressure Mean (mm Hg) 68 Source Monitor Position Sitting Blood Pressure Location Left Arm History Since Last Visit- (Skip if this is Patient's initial visit) Have you changed medications since your No last visit? Any new allergies or adverse reactions No Had a fall/change in ADL's that may No increase risk of falls Signs or symptoms of abuse and/or No neglect since last visit Have you been in the hospital since your No last visit? Has dressing in place as prescribed Yes Has compression in place as prescribed N/A Has offloadiing in place as prescribed N/A Experienced any changes in pain level or No management Left Footwear Regular Shoe Right Footwear Surgical Shoe with pressure relief insole Pain Scale: 0-10 Numeric Is Patient Pain Free? Yes WC - Nurse 1 - General Ulcer Measurement Start: 05/30/21 15:42 Freq: Status: Active Protocol: Activity Type Activity Date Activity User E-Sign Co-Sign Detail Recorded Client Recorded Date Recorded By Document 05/30/21 15:43 ML [id number] 05/30/21 15:55 ML 05/30/21 15:43 Wound Center Nurse 1 #1- 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) -Current Size (cm) - Length 3.5 -Current Size (cm) - Width 2 -Current Size (cm) - Depth 0.5 -Total Square Cm 7.0 -Exudate Amt Small -Exudate Type Serosanguineous -Wound Margin Distinct, Outline Attached -Granulation Amt Medium (34-66%) -Slough/Fibrin Yes -Necrosis Amt Medium (34-66%) -Texture (Charleen-wound Skin Appearance) Assessed -Moisture (Charleen-wound Skin Appearance) Assessed,Dry/ Scaly -Color (Charleen-wound Skin Appearance) Assessed -Temperature (Charleen-wound Skin No Abnormality Appearance) (Pt Warm) -Ulcer Cleansing Soap and Water -Foul Odor after Cleansing No -Anesthetic Used 5% Lidocaine Gel Left Calf (cm) 32 Left Foot (cm) 25 WC - Nurse 2 - General Ulcer CM Notes Start: 05/30/21 15:42 Freq: Status: Active Protocol: Activity Type Activity Date Activity User E-Sign Co-Sign Detail Recorded Client Recorded Date Recorded By Document 05/30/21 15:59 MW [id number] 05/30/21 16:11 MW 05/30/21 15:59 Wound Center Nurse 2 #1- 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) -Time 15:59 -Correct Patient Yes -Correct Side, Site, Position Yes -Correct Procedure Yes -Procedure Performed Yes -Type of Procedure Debridement -Clinical Debridement Subcutaneous -Tissue Removed Subcutaneous -Post Debridement (cm) - Length 4.0 -Post Debridement (cm) - Width 2.0 -Post Debridement (cm) - Depth 0.7 -Total Square (Post) (cm) 8.00 -Area of Debridement (cm) - Length 4.0 -Area of Debridement (cm) - Width 2.0 -Total Square (Area) (cm) 8.00 -Tunneling No -Undermining/Tunneling No -Circular Undermining No -Wound/Ulcer Outcome Not Healed -Ulcer Cleansing Rinsed/ Irrigated with Saline -Foul Odor after Cleansing No -Bioengineered Tissue No -Bleeding Controlled with Pressure -Offloading No -Treatment Response Procedure Tolerated Well -Debridement - Subq, 1st 20sq cm Yes Pain Scale: 0-10 Numeric Is Patient Pain Free? Yes WC - Nurse 3 - General Ulcer D/C NN Start: 05/30/21 15:42 Freq: Status: Active Protocol: Activity Type Activity Date Activity User E-Sign Co-Sign Detail Recorded Client Recorded Date Recorded By Document 05/30/21 16:11 MW [id number] 05/30/21 16:12 MW Document 05/31/21 10:10 LA [id number] 05/31/21 10:37 MT 05/30/21 05/31/21 16:11 10:10 Wound Care Nurse 3 #1- 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) -Ulcer Cleansing Rinsed/ Soap and Water Irrigated with Saline -Foul Odor after Cleansing No -Negative Pressure Wound Therapy N/A -Primary Dressing Applied Promogran Promogran -Primary Dressing Covered/Secured with Dry Gauze & Roll Gauze, Secured with Tape -Promogran 1 1 Right -Lotion applied to leg before No compression wrap -Multi-Layered Wrap Application Unna Boot - Multi-Layer Right ($) Comp - Right ($ ) Treatment Response Procedure Tolerated Well Vital Signs Temperature (97.8 F-99.1 F) 97 F L Temperature Source Temporal Pulse Rate (60-100) 65 Pulse Location Monitor Respiratory Rate (12-18) 18 Respiratory rate source Observation Blood Pressure (90/60-120/80) 114/58 L Blood Pressure Mean (mm Hg) 76 Source Monitor Position Sitting Blood Pressure Location Left Arm Pain Scale: 0-10 Numeric Is Patient Pain Free? Yes Yes Teaching: Wound Center Dressing Your Wound -Person Taught Patient -Teaching Method Discussion -Response to teaching Verbalize understanding WC - Visit Discharge Discharge Condition Stable Stable Ambulatory Status Ambulatory, Walker Walker Transportation Private Auto Private Auto Accompanied by daughter in law Medication Reconcilliation completed & No No provided to patient/care provider Clinical Summary of Care Provided Yes Yes Notes: pt and daughter verbalized understanding of wound care. Assessment/Plan Assessment/Plan (1) Laceration without foreign body, right lower leg, initial encounter: CODE(S): S81.811A - Laceration without foreign body, right lower leg, initial encounter PLAN: Debridement performed today in clinic as annotated above. Promogran applied today and tomorrow 3M wrap will be applied. At home wound-care instructions: Plan as above Compression: 3M wrap Off-loading: The patient was instructed to avoid pressure and friction on the affected areas. Reposition every 2 hours at minimum. Avoid prolonged standing and/or dangling of legs. When seated, feet should be elevated at chest level. Frequent ambulation is encouraged. Diet: Patient encouraged to increase protein intake while taking caution to avoid high carbohydrate and/or sugar intake. Patient is a non-smoker Labs/cultures/imaging: Cultures held today. Routine baseline lab work held. Vascular studies held. Follow-up: Return to clinic in 1 week for re-evaluation. She will continue following up with her orthopedics teacher Dr. William as well, return sooner or report to the emergency room should symptoms worsen, or new symptoms arise. This note was generated with [employer] dictation software. It may contain incorrect words, spelling, and punctuation that were not noted in checking the note before signing. I have spent 25 minutes today reviewing labs, records, and history. Time includes coordinating care, interpretation of tests, and counseling the patient/family. This also includes time I spent with the patient for exam, treatment plan, and education as well as documenting clinical information in the electronic health record.
[2021-06-06 15:08] VITALS: BP 123/67; PULSE 87; RESP 16; TEMP 36; BMI 25.2
--- NOTE | 2021-06-06 16:50 | PCM.WC.PN ---
History of Present Illness Date of Service: 06/06/21 Chief Complaint: Right lower extremity wound History of Wound: This is a 60-year-old female who presents to the wound healing center today with a right lower extremity wound. This is a workers comp case as it occurred at work. On March 21, 2021, the patient was pinned between a tow motor and her right leg against the wall causing a laceration. She went to the emergency department at [facility] where orthopedics Dr. William was consulted and he reviewed her imaging washed out the wound and repaired in the emergency department. She was discharged home with Xeroform for wound care and crutches and a walking boot. She was also given Keflex and pain medication and was referred to the wound healing center. Since then, the patient states that her sutures have been removed and that she has completed her entire course of Keflex. She denies any systemic or localized signs of infection at this time but is getting moderate amounts of drainage which is serosanguineous. She has not been utilizing any compression. She states that there are a few areas of blackened areas on the wound but they seem to be improving in size. Denies any other aggravating relieving factors. She does follow-up with her orthopedic next week. Past medical, family, and social history reviewed and not pertinent to the current visit and all other systems reviewed and negative with exception of those listed above. Progress of Wound: Stable, no new concerns, she was approved for Promogran and 3M wraps which she did well on and will be applied today Objective Data Objective Data Vital Signs: Vital Signs Temp Pulse Resp BP 96.8 F L 87 16 123/67 H 06/06/21 15:08 06/06/21 15:08 06/06/21 15:08 06/06/21 15:08 Oxygen Delivery Method Room Air Weight: 129 lb Body Mass Index (BMI) 25.2 Charges/Coding Procedures Integumentary 111xxx-113xx: [id number] Shy subq tissue 20 sq cm/< Physical Exam Const alert, oriented x3, no apparent distress, healthy appearing and well nourished General Appearance: cooperative Exam Limitations: no limitations HEENT normocephalic Head and Scalp: normal to inspection Mouth: oral and palatal mucosa normal Eyes General Eye: normal appearance of both eyes Resp normal respiratory effort, normal air movement and no use of accessory muscles Effort and Inspection: able to speak in complete sentences Auscultation: clear to auscultation bilaterally Cardio regular rate, regular rhythm, S1 normal heart sound, S2 normal heart sound, no murmurs and peripheral pulses 2+ throughout Palpation: normal PMI Rate: regular rate Heart Sounds: S1 normal and S2 normal GI normal to inspection, nondistended, normoactive bowel sounds, soft to palpation, non-tender and non-distended Palpation: soft Extremity normal to inspection and full ROM General Extremity: normal exam except as noted Skin Skin Narrative: Right lower extremity, generalized edema, wound has improved immensely and is now smaller and beefy red and granular without any signs of obvious infection Neuro oriented x3 and moves all extremities Sensorium / Orientation: awake, alert, oriented to person, oriented to place and oriented to time Psych mental status grossly normal, thought process normal and denies hallucinations Appearance: grossly normal Attitude: calm Activity / Motor Behavior: appropriate eye contact Speech: normal speech Thought Process: normal thought process Thought Content: normal thought content Attention / Concentration: attention grossly intact Insight: insight good Judgement: judgement good Debridement Note Debridement Note Wound debrided: Right lower extremity wound Laterality: Right Type of Debridement: Excisional debridement Anesthesia Used: 5% Lidocaine Gel Depth: Down to and including healthy tissue and in the subcutaneous layer Percentage of wound debrided: 100 Instrument Used: 3mm curette and 5mm curette Tissue Removed: Slough and devitalized tissue Severity: Fat Layer Exposed Amount of bleeding with debridement: Mild Bleeding Controlled with: Pressure Patient tolerated procedure: Patient tolerated procedure well Post-Debridement Measurements and Additional Note: Post-Debridement Measurements/Treatment - Nurse 1 - General Ulcer Assessment Start: 05/30/21 15:42 Freq: Status: Active Protocol: [email or web address] Activity Type Activity Date Activity User E-Sign Co-Sign Detail Recorded Client Recorded Date Recorded By Document 05/30/21 15:43 [id number] 05/30/21 15:55 ML Document 06/06/21 15:08 [facility] [id number] 06/06/21 15:22 BM 05/30/21 06/06/21 15:43 15:08 - Today's Visit Information Type of service Follow-up Visit Follow-up Visit (Physician/BUZZSAW OPERATOR HELPER (Physician/BUZZSAW OPERATOR HELPER ) ) Arrival Mode Ambulatory Ambulatory, Crutches Transfer Assistance None None Patient Identification Verified (Name & Yes Yes ) Patient Requires Transmission-Based No Precautions Safety Precautions NA Height and Weight Body Mass Index (BMI) 25.2 25.2 BMI Classification Overweight Overweight Vital Signs Temperature (97.8 F-99.1 F) 97.9 F 96.8 F L Temperature Source Temporal Temporal Pulse Rate (60-100) 84 87 Pulse Location Monitor Monitor Respiratory Rate (12-18) 16 16 Respiratory rate source Observation Observation Oxygen Delivery Method Room Air Blood Pressure (90/60-120/80) 114/46 L 123/67 H Blood Pressure Mean (mm Hg) 68 85 Source Monitor Monitor Position Sitting Sitting Blood Pressure Location Left Arm Right Arm History Since Last Visit- (Skip if this is Patient's initial visit) Have you changed medications since your No No last visit? Any new allergies or adverse reactions No No Had a fall/change in ADL's that may No No increase risk of falls Signs or symptoms of abuse and/or No No neglect since last visit Have you been in the hospital since your No No last visit? Has dressing in place as prescribed Yes Yes Has compression in place as prescribed N/A Yes Has offloadiing in place as prescribed N/A N/A Experienced any changes in pain level or No No management Left Footwear Regular Shoe Slipper Right Footwear Surgical Shoe Slipper with pressure relief insole Pain Scale: 0-10 Numeric Is Patient Pain Free? Yes Yes WC - Nurse 1 - General Ulcer Measurement Start: 05/30/21 15:42 Freq: Status: Active Protocol: Activity Type Activity Date Activity User E-Sign Co-Sign Detail Recorded Client Recorded Date Recorded By Document 05/30/21 15:43 ML [id number] 05/30/21 15:55 ML Document 06/06/21 15:08 [facility] [id number] 06/06/21 15:22 BMF 05/30/21 06/06/21 15:43 15:08 Wound Center Nurse 1 #1- 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) -Current Size (cm) - Length 3.5 3.2 -Current Size (cm) - Width 2 1.3 -Current Size (cm) - Depth 0.5 0.2 -Total Square Cm 7.0 4.16 -Photo Taken No -Exudate Amt Small Medium -Exudate Type Serosanguineous Serosanguineous -Wound Margin Distinct, Distinct, Outline Outline Attached Attached -Granulation Amt Medium (34-66%) Large (67-100%) -Granulation Quality Red -Slough/Fibrin Yes -Necrosis Amt Medium (34-66%) Small (1-33%) -Necrotic Tissue Type Adherent Slough -Structure Exposed N/A -Texture (Charleen-wound Skin Appearance) Assessed Scarring -Moisture (Charleen-wound Skin Appearance) Assessed,Dry/ No Abnormality Scaly -Color (Charleen-wound Skin Appearance) Assessed Hemosiderin Staining -Temperature (Charleen-wound Skin No Abnormality No Abnormality Appearance) (Pt Warm) (Pt Warm) -Tenderness on Palpation (Charleen-wound No Skin Appearance) -Ulcer Cleansing Soap and Water Soap and Water -Foul Odor after Cleansing No No -Anesthetic Used 5% Lidocaine 4% Lidocaine Gel Solution Right Calf (cm) 34.7 Right Ankle (cm) 24.1 Left Calf (cm) 32 Left Foot (cm) 25 WC - Nurse 2 - General Ulcer CM Notes Start: 05/30/21 15:42 Freq: Status: Active Protocol: Activity Type Activity Date Activity User E-Sign Co-Sign Detail Recorded Client Recorded Date Recorded By Document 05/30/21 15:59 MW [id number] 05/30/21 16:11 MW Document 06/06/21 15:33 MW [id number] 06/06/21 15:40 MW 05/30/21 06/06/21 15:59 15:33 Wound Center Nurse 2 #1- 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) -Time 15:59 15:34 -Correct Patient Yes Yes -Correct Side, Site, Position Yes Yes -Correct Procedure Yes Yes -Procedure Performed Yes Yes -Type of Procedure Debridement Debridement -Clinical Debridement Subcutaneous Subcutaneous -Tissue Removed Subcutaneous Subcutaneous -Post Debridement (cm) - Length 4.0 3.5 -Post Debridement (cm) - Width 2.0 1.5 -Post Debridement (cm) - Depth 0.7 0.6 -Total Square (Post) (cm) 8.00 5.25 -Area of Debridement (cm) - Length 4.0 3.5 -Area of Debridement (cm) - Width 2.0 1.5 -Total Square (Area) (cm) 8.00 5.25 -Tunneling No No -Undermining/Tunneling No No -Circular Undermining No No -Wound/Ulcer Outcome Not Healed Not Healed -Ulcer Cleansing Rinsed/ Rinsed/ Irrigated with Irrigated with Saline Saline -Foul Odor after Cleansing No No -Bioengineered Tissue No No -Bleeding Controlled with Pressure Pressure -Offloading No No -Treatment Response Procedure Procedure Tolerated Well Tolerated Well -Debridement - Subq, 1st 20sq cm Yes Yes Pain Scale: 0-10 Numeric Is Patient Pain Free? Yes Yes WC - Nurse 3 - General Ulcer D/C NN Start: 05/30/21 15:42 Freq: Status: Active Protocol: Activity Type Activity Date Activity User E-Sign Co-Sign Detail Recorded Client Recorded Date Recorded By Document 05/30/21 16:11 MW [id number] 05/30/21 16:12 MW Document 05/31/21 10:10 MT [id number] 05/31/21 10:37 MT Document 06/06/21 15:41 MW [id number] 06/06/21 15:43 MW 05/30/21 05/31/21 06/06/21 16:11 10:10 15:41 Wound Care Nurse 3 #1- 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) -Ulcer Cleansing Rinsed/ Soap and Water Rinsed/ Irrigated with Irrigated with Saline Saline -Foul Odor after Cleansing No No -Negative Pressure Wound Therapy N/A N/A -Primary Dressing Applied Promogran Promogran NonAdherent Contact Layer, Promogran -Primary Dressing Covered/Secured with Dry Gauze & Roll Gauze, Secured with Tape -Promogran 1 1 1 Right -Lotion applied to leg before No No compression wrap -Multi-Layered Wrap Application Unna Boot - Multi-Layer Multi-Layer Right ($) Comp - Right ($ Comp - Right ($ ) ) Treatment Response Procedure Procedure Tolerated Well Tolerated Well Vital Signs Temperature (97.8 F-99.1 F) 97 F L Temperature Source Temporal Pulse Rate (60-100) 65 Pulse Location Monitor Respiratory Rate (12-18) 18 Respiratory rate source Observation Blood Pressure (90/60-120/80) 114/58 L Blood Pressure Mean (mm Hg) 76 Source Monitor Position Sitting Blood Pressure Location Left Arm Pain Scale: 0-10 Numeric Is Patient Pain Free? Yes Yes Yes Teaching: Wound Center Dressing Your Wound -Person Taught Patient Patient -Teaching Method Discussion Discussion, Demonstration -Response to teaching Verbalize Verbalize understanding understanding WC - Visit Discharge Discharge Condition Stable Stable Stable Ambulatory Status Ambulatory, Walker Ambulatory, Walker Crutches Transportation Private Auto Private Auto Private Auto Accompanied by daughter in law Medication Reconcilliation completed & No No No provided to patient/care provider Clinical Summary of Care Provided Yes Yes Yes Notes: pt and daughter verbalized understanding of wound care. Assessment/Plan Assessment/Plan (1) Laceration without foreign body, right lower leg, initial encounter: CODE(S): S81.811A - Laceration without foreign body, right lower leg, initial encounter PLAN: Debridement performed today in clinic as annotated above. Promogran applied today and tomorrow 3M wrap will be applied. At home wound-care instructions: Plan as above Compression: 3M wrap Off-loading: The patient was instructed to avoid pressure and friction on the affected areas. Reposition every 2 hours at minimum. Avoid prolonged standing and/or dangling of legs. When seated, feet should be elevated at chest level. Frequent ambulation is encouraged. Diet: Patient encouraged to increase protein intake while taking caution to avoid high carbohydrate and/or sugar intake. Patient is a non-smoker Labs/cultures/imaging: Cultures held today. Routine baseline lab work held. Vascular studies held. Follow-up: Return to clinic in 1 week for re-evaluation. She will continue following up with her health plan specialist Dr. William as well, return sooner or report to the emergency room should symptoms worsen, or new symptoms arise. This note was generated with [employer] dictation software. It may contain incorrect words, spelling, and punctuation that were not noted in checking the note before signing. I have spent 25 minutes today reviewing labs, records, and history. Time includes coordinating care, interpretation of tests, and counseling the patient/family. This also includes time I spent with the patient for exam, treatment plan, and education as well as documenting clinical information in the electronic health record.
[2021-06-10 13:55] VITALS: BP 113/67; PULSE 82; RESP 18; TEMP 36.3; BMI 25.2
[2021-06-13 15:01] VITALS: BP 112/62; PULSE 80; RESP 24; TEMP 36.8; BMI 25.2
--- NOTE | 2021-06-13 22:13 | PN.PCM_ITS ---
History of Present Illness Date of Service: 06/13/21 Chief Complaint: Right lower extremity wound History of Wound: This is a 60-year-old female who presents to the wound healing center today with a right lower extremity wound. This is a workers comp case as it occurred at work. On March 21, 2021, the patient was pinned between a tow motor and her right leg against the wall causing a laceration. She went to the emergency department at [facility] [place] where orthopedics Dr. William was consulted and he reviewed her imaging washed out the wound and repaired in the emergency department. She was discharged home with Xeroform for wound care and crutches and a walking boot. She was also given Keflex and pain medication and was referred to the wound healing center. Since then, the patient states that her sutures have been removed and that she has completed her entire course of Keflex. She denies any systemic or localized signs of infection at this time but is getting moderate amounts of drainage which is serosanguineous. She has not been utilizing any compression. She states that there are a few areas of blackened areas on the wound but they seem to be improving in size. Denies any other aggravating relieving factors. She does follow-up with her orthopedic next week. Past medical, family, and social history reviewed and not pertinent to the current visit and all other systems reviewed and negative with exception of those listed above. Progress of Wound: Stable, no new concerns, she was approved for Promogran and 3M wraps which she did well on and will be applied today, from a wound care perspective she likely will not be completely healed for another 2 to 4 weeks and should not return to work until her wound is entirely healed Objective Data Objective Data Vital Signs: Vital Signs Temp Pulse Resp BP 98.2 F 80 24 H 112/62 06/13/21 15:01 06/13/21 15:01 06/13/21 15:01 06/13/21 15:01 Oxygen Delivery Method Room Air Weight: 129 lb Body Mass Index (BMI) 25.2 Charges/Coding Procedures Integumentary 111xxx-113xx: [id number] Shy subq tissue 20 sq cm/< Physical Exam Const alert, oriented x3, no apparent distress, healthy appearing and well nourished General Appearance: cooperative Exam Limitations: no limitations HEENT normocephalic Head and Scalp: normal to inspection Mouth: oral and palatal mucosa normal Eyes General Eye: normal appearance of both eyes Resp normal respiratory effort, normal air movement and no use of accessory muscles Effort and Inspection: able to speak in complete sentences Auscultation: clear to auscultation bilaterally Cardio regular rate, regular rhythm, S1 normal heart sound, S2 normal heart sound, no murmurs and peripheral pulses 2+ throughout Palpation: normal PMI Rate: regular rate Heart Sounds: S1 normal and S2 normal GI normal to inspection, nondistended, normoactive bowel sounds, soft to palpation, non-tender and non-distended Palpation: soft Extremity normal to inspection and full ROM General Extremity: normal exam except as noted Skin Skin Narrative: Right lower extremity, generalized edema, wound has improved immensely and is now smaller and beefy red and granular without any signs of obvious infection Neuro oriented x3 and moves all extremities Sensorium / Orientation: awake, alert, oriented to person, oriented to place and oriented to time Psych mental status grossly normal, thought process normal and denies hallucinations Appearance: grossly normal Attitude: calm Activity / Motor Behavior: appropriate eye contact Speech: normal speech Thought Process: normal thought process Thought Content: normal thought content Attention / Concentration: attention grossly intact Insight: insight good Judgement: judgement good Debridement Note Debridement Note Wound debrided: Right lower extremity wound Laterality: Right Type of Debridement: Excisional debridement Anesthesia Used: 4% Lidocaine Solution and 5% Lidocaine Gel Depth: Down to and including healthy tissue and in the subcutaneous layer Percentage of wound debrided: 100 Instrument Used: 5mm curette Tissue Removed: Slough and devitalized tissue Severity: Fat Layer Exposed Amount of bleeding with debridement: Mild Bleeding Controlled with: Pressure Patient tolerated procedure: Patient tolerated procedure well Post-Debridement Measurements and Additional Note: Post-Debridement Measurements/Treatment WC - Nurse 1 - General Ulcer Assessment Start: 05/30/21 15:42 Freq: Status: Active Protocol: MERE Activity Type Activity Date Activity User E-Sign Co-Sign Detail Recorded Client Recorded Date Recorded By Document 05/30/21 15:43 ML [id number] 05/30/21 15:55 ML Document 06/06/21 15:08 BMF [id number] 06/06/21 15:22 BMF Document 06/10/21 13:55 [facility] [id number] 06/10/21 13:59 BMF Document 06/13/21 15:01 DL [id number] 06/13/21 15:09 DL 05/30/21 06/06/21 06/10/21 15:43 15:08 13:55 WC - Today's Visit Information Type of service Follow-up Visit Follow-up Visit Nurse-only (Physician/DESIGN CENTER CONSULTANT (Physician/DESIGN CENTER CONSULTANT Visit ) ) Arrival Mode Ambulatory Ambulatory, Ambulatory Crutches Transfer Assistance None None None Patient Identification Verified (Name & Yes Yes Yes ) Patient Requires Transmission-Based No No Precautions Safety Precautions NA Height and Weight Body Mass Index (BMI) 25.2 25.2 25.2 BMI Classification Overweight Overweight Overweight Vital Signs Temperature (97.8 F-99.1 F) 97.9 F 96.8 F L 97.3 F L Temperature Source Temporal Temporal Temporal Pulse Rate (60-100) 84 87 82 Pulse Location Monitor Monitor Monitor Respiratory Rate (12-18) 16 16 18 Respiratory rate source Observation Observation Observation Oxygen Delivery Method Room Air Blood Pressure (90/60-120/80) 114/46 L 123/67 H 113/67 Blood Pressure Mean (mm Hg) 68 85 82 Source Monitor Monitor Monitor Position Sitting Sitting Blood Pressure Location Left Arm Right Arm History Since Last Visit- (Skip if this is Patient's initial visit) Have you changed medications since your No No No last visit? Any new allergies or adverse reactions No No No Had a fall/change in ADL's that may No No No increase risk of falls Signs or symptoms of abuse and/or No No No neglect since last visit Have you been in the hospital since your No No No last visit? Has dressing in place as prescribed Yes Yes Yes Has compression in place as prescribed N/A Yes Yes Has offloadiing in place as prescribed N/A N/A N/A Experienced any changes in pain level or No No No management Left Footwear Regular Shoe Slipper Right Footwear Surgical Shoe Slipper with pressure relief insole Pain Scale: 0-10 Numeric Is Patient Pain Free? Yes Yes Yes 06/13/21 15:01 WC - Today's Visit Information Type of service Follow-up Visit (Physician/DESIGN CENTER CONSULTANT ) Arrival Mode Ambulatory Transfer Assistance None Patient Identification Verified (Name & Yes ) Patient Requires Transmission-Based Precautions Safety Precautions Height and Weight Body Mass Index (BMI) 25.2 BMI Classification Overweight Vital Signs Temperature (97.8 F-99.1 F) 98.2 F Temperature Source Temporal Pulse Rate (60-100) 80 Pulse Location Monitor Respiratory Rate (12-18) 24 H Respiratory rate source Observation Oxygen Delivery Method Blood Pressure (90/60-120/80) 112/62 Blood Pressure Mean (mm Hg) 78 Source Monitor Position Blood Pressure Location History Since Last Visit- (Skip if this is Patient's initial visit) Have you changed medications since your No last visit? Any new allergies or adverse reactions No Had a fall/change in ADL's that may No increase risk of falls Signs or symptoms of abuse and/or No neglect since last visit Have you been in the hospital since your No last visit? Has dressing in place as prescribed Yes Has compression in place as prescribed Yes Has offloadiing in place as prescribed Yes Experienced any changes in pain level or No management Left Footwear Regular Shoe Right Footwear Regular Shoe Pain Scale: 0-10 Numeric Is Patient Pain Free? Yes WC - Nurse 1 - General Ulcer Measurement Start: 05/30/21 15:42 Freq: Status: Active Protocol: Activity Type Activity Date Activity User E-Sign Co-Sign Detail Recorded Client Recorded Date Recorded By Document 05/30/21 15:43 ML [id number] 05/30/21 15:55 ML Document 06/06/21 15:08 BM [id number] 06/06/21 15:22 BM Document 06/10/21 13:55 BM [id number] 06/10/21 13:59 BMF Document 06/13/21 15:01 DL [id number] 06/13/21 15:09 DL 05/30/21 06/06/21 06/10/21 15:43 15:08 13:55 Wound Center Nurse 1 #1- 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) -Current Size (cm) - Length 3.5 3.2 -Current Size (cm) - Width 2 1.3 -Current Size (cm) - Depth 0.5 0.2 -Total Square Cm 7.0 4.16 -Photo Taken No No -Exudate Amt Small Medium -Exudate Type Serosanguineous Serosanguineous -Wound Margin Distinct, Distinct, Outline Outline Attached Attached -Granulation Amt Medium (34-66%) Large (67-100%) -Granulation Quality Red -Slough/Fibrin Yes -Necrosis Amt Medium (34-66%) Small (1-33%) -Necrotic Tissue Type Adherent Slough -Structure Exposed N/A N/A -Texture (Charleen-wound Skin Appearance) Assessed Scarring Scarring -Moisture (Charleen-wound Skin Appearance) Assessed,Dry/ No Abnormality No Abnormality Scaly -Color (Charleen-wound Skin Appearance) Assessed Hemosiderin No Abnormality Staining -Temperature (Charleen-wound Skin No Abnormality No Abnormality Appearance) (Pt Warm) (Pt Warm) -Tenderness on Palpation (Charleen-wound No Skin Appearance) -Ulcer Cleansing Soap and Water Soap and Water Soap and Water -Foul Odor after Cleansing No No No -Anesthetic Used 5% Lidocaine 4% Lidocaine Gel Solution Right Calf (cm) 34.7 Right Ankle (cm) 24.1 Left Calf (cm) 32 Left Foot (cm) 25 06/13/21 15:01 Wound Center Nurse 1 #1- 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) -Current Size (cm) - Length 2 -Current Size (cm) - Width 0.6 -Current Size (cm) - Depth 0.3 -Total Square Cm 1.2 -Photo Taken No -Exudate Amt Medium -Exudate Type Serosanguineous -Wound Margin Distinct, Outline Attached -Granulation Amt -Granulation Quality Red -Slough/Fibrin -Necrosis Amt Small (1-33%) -Necrotic Tissue Type Adherent Slough -Structure Exposed N/A -Texture (Charleen-wound Skin Appearance) Scarring -Moisture (Charleen-wound Skin Appearance) No Abnormality -Color (Charleen-wound Skin Appearance) No Abnormality -Temperature (Charleen-wound Skin No Abnormality Appearance) (Pt Warm) -Tenderness on Palpation (Charleen-wound No Skin Appearance) -Ulcer Cleansing Soap and Water -Foul Odor after Cleansing No -Anesthetic Used 5% Lidocaine Gel Right Calf (cm) 32.5 Right Ankle (cm) 24 Left Calf (cm) Left Foot (cm) WC - Nurse 2 - General Ulcer CM Notes Start: 05/30/21 15:42 Freq: Status: Active Protocol: Activity Type Activity Date Activity User E-Sign Co-Sign Detail Recorded Client Recorded Date Recorded By Document 05/30/21 15:59 MW [id number] 05/30/21 16:11 MW Document 06/06/21 15:33 MW [id number] 06/06/21 15:40 MW Document 06/13/21 15:34 MW [id number] 06/13/21 15:37 MW 05/30/21 06/06/21 06/13/21 15:59 15:33 15:34 Wound Center Nurse 2 #1- 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) -Time 15:59 15:34 15:34 -Correct Patient Yes Yes Yes -Correct Side, Site, Position Yes Yes Yes -Correct Procedure Yes Yes Yes -Procedure Performed Yes Yes Yes -Type of Procedure Debridement Debridement Debridement -Clinical Debridement Subcutaneous Subcutaneous Subcutaneous -Tissue Removed Subcutaneous Subcutaneous Subcutaneous -Post Debridement (cm) - Length 4.0 3.5 3.2 -Post Debridement (cm) - Width 2.0 1.5 1.2 -Post Debridement (cm) - Depth 0.7 0.6 0.5 -Total Square (Post) (cm) 8.00 5.25 3.84 -Area of Debridement (cm) - Length 4.0 3.5 3.2 -Area of Debridement (cm) - Width 2.0 1.5 1.2 -Total Square (Area) (cm) 8.00 5.25 3.84 -Tunneling No No No -Undermining/Tunneling No No No -Circular Undermining No No No -Wound/Ulcer Outcome Not Healed Not Healed Not Healed -Ulcer Cleansing Rinsed/ Rinsed/ Rinsed/ Irrigated with Irrigated with Irrigated with Saline Saline Saline -Foul Odor after Cleansing No No No -Bioengineered Tissue No No No -Bleeding Controlled with Pressure Pressure Pressure -Offloading No No No -Treatment Response Procedure Procedure Procedure Tolerated Well Tolerated Well Tolerated Well -Debridement - Subq, 1st 20sq cm Yes Yes Yes Pain Scale: 0-10 Numeric Is Patient Pain Free? Yes Yes Yes WC - Nurse 3 - General Ulcer D/C NN Start: 05/30/21 15:42 Freq: Status: Active Protocol: Activity Type Activity Date Activity User E-Sign Co-Sign Detail Recorded Client Recorded Date Recorded By Document 05/30/21 16:11 MW [id number] 05/30/21 16:12 MW Document 05/31/21 10:10 RI [id number] 05/31/21 10:37 MT Document 06/06/21 15:41 [id number] 06/06/21 15:43 MW Document 06/10/21 13:55 [facility] [id number] 06/10/21 13:59 BMF Document 06/13/21 15:50 AK [id number] 06/13/21 15:51 AK 05/30/21 05/31/21 06/06/21 16:11 10:10 15:41 Wound Care Nurse 3 #1- 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) -Ulcer Cleansing Rinsed/ Soap and Water Rinsed/ Irrigated with Irrigated with Saline Saline -Foul Odor after Cleansing No No -Negative Pressure Wound Therapy N/A N/A -Primary Dressing Applied Promogran Promogran NonAdherent Contact Layer, Promogran -Other Dressing -Primary Dressing Covered/Secured with Dry Gauze & Roll Gauze, Secured with Tape -Promogran 1 1 1 Right -Lotion applied to leg before No No compression wrap -Multi-Layered Wrap Application Unna Boot - Multi-Layer Multi-Layer Right ($) Comp - Right ($ Comp - Right ($ ) ) Treatment Response Procedure Procedure Tolerated Well Tolerated Well Vital Signs Temperature (97.8 F-99.1 F) 97 F L Temperature Source Temporal Pulse Rate (60-100) 65 Pulse Location Monitor Respiratory Rate (12-18) 18 Respiratory rate source Observation Blood Pressure (90/60-120/80) 114/58 L Blood Pressure Mean (mm Hg) 76 Source Monitor Position Sitting Blood Pressure Location Left Arm Pain Scale: 0-10 Numeric Is Patient Pain Free? Yes Yes Yes Teaching: Wound Center Dressing Your Wound -Person Taught Patient Patient -Teaching Method Discussion Discussion, Demonstration -Response to teaching Verbalize Verbalize understanding understanding WC - Visit Discharge Discharge Condition Stable Stable Stable Ambulatory Status Ambulatory, Walker Ambulatory, Walker Crutches Transportation Private Auto Private Auto Private Auto Accompanied by daughter in law Medication Reconcilliation completed & No No No provided to patient/care provider Clinical Summary of Care Provided Yes Yes Yes Notes: pt and daughter verbalized understanding of wound care. 06/10/21 06/13/21 13:55 15:50 Wound Care Nurse 3 #1- 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) -Ulcer Cleansing Soap and Water Rinsed/ Irrigated with Saline -Foul Odor after Cleansing No No -Negative Pressure Wound Therapy N/A -Primary Dressing Applied NonAdherent NonAdherent Contact Layer Contact Layer, Promogran -Other Dressing PROMOGRAN -Primary Dressing Covered/Secured with Dry Gauze -Promogran 1 Right -Lotion applied to leg before No compression wrap -Multi-Layered Wrap Application Multi-Layer Multi-Layer Comp - Right ($ Comp - Right ($ ) ) Treatment Response Procedure Tolerated Well Vital Signs Temperature (97.8 F-99.1 F) 97.3 F L Temperature Source Temporal Pulse Rate (60-100) 82 Pulse Location Monitor Respiratory Rate (12-18) 18 Respiratory rate source Observation Blood Pressure (90/60-120/80) 113/67 Blood Pressure Mean (mm Hg) 82 Source Monitor Position Blood Pressure Location Pain Scale: 0-10 Numeric Is Patient Pain Free? Yes Yes Teaching: Wound Center Dressing Your Wound -Person Taught -Teaching Method -Response to teaching WC - Visit Discharge Discharge Condition Stable Stable Ambulatory Status Ambulatory, Ambulatory Crutches Transportation Private Auto Private Auto Accompanied by Medication Reconcilliation completed & Yes provided to patient/care provider Clinical Summary of Care Provided Yes Notes: Assessment/Plan Assessment/Plan (1) Laceration without foreign body, right lower leg, initial encounter: CODE(S): S81.811A - Laceration without foreign body, right lower leg, initial encounter PLAN: Debridement performed today in clinic as annotated above. Promogran applied today and 3M wrap will be applied. At home wound-care instructions: Plan as above Compression: 3M wrap Off-loading: The patient was instructed to avoid pressure and friction on the affected areas. Reposition every 2 hours at minimum. Avoid prolonged standing and/or dangling of legs. When seated, feet should be elevated at chest level. Frequent ambulation is encouraged. Diet: Patient encouraged to increase protein intake while taking caution to avoid high carbohydrate and/or sugar intake. Patient is a non-smoker Labs/cultures/imaging: Cultures held today. Routine baseline lab work held. Vascular studies held. Follow-up: Return to clinic in 1 week for re-evaluation. She will continue following up with her corrections specialist Dr. William as well, return sooner or report to the emergency room should symptoms worsen, or new symptoms arise. This note was generated with [employer] dictation software. It may contain incorrect words, spelling, and punctuation that were not noted in checking the note before signing. I have spent 25 minutes today reviewing labs, records, and history. Time includes coordinating care, interpretation of tests, and counseling the patient/family. This also includes time I spent with the patient for exam, treatment plan, and education as well as documenting clinical information in the electronic health record.
[2021-06-17 09:11] VITALS: BP 105/60; PULSE 77; RESP 16; BMI 25.2
== END 2021-06-17 23:59 | disposition home or self-care (01) ==
LOC: WC 09:00
PROVIDERS: PCP Family Medicine; Visit Provider Nurse Practitioner Family
DX: S81.811D Laceration without foreign body, right lower leg, subsequent encounter (principal); W23.0XXD Caught, crushed, jammed, or pinched between moving objects, subsequent encounter; Y99.0 Civilian activity done for income or pay; E66.3 Overweight; Z68.25 Body mass index [BMI] 25.0-25.9, adult; Z79.82 Long term (current) use of aspirin; Z79.899 Other long term (current) drug therapy
CPT/HCPCS: 11042; 29580; 29581; 99212; G0463

== ENCOUNTER 2021-07-18 13:45 | Outpatient (RCR) | payer OTHER, SELFPAY ==
[2021-06-18 00:35] VITALS: BP 105/60; PULSE 77; RESP 16; TEMP 36.8; BMI 25.2
--- NOTE | 2021-06-20 16:19 | PN.PCM_ITS ---
History of Present Illness Date of Service: 06/20/21 Chief Complaint: Right lower extremity wound History of Wound: This is a 60-year-old female who presents to the wound healing center today with a right lower extremity wound. This is a workers comp case as it occurred at work. On March 21, 2021, the patient was pinned between a tow motor and her right leg against the wall causing a laceration. She went to the emergency department at [facility] where orthopedics Dr. William was consulted and he reviewed her imaging washed out the wound and repaired in the emergency department. She was discharged home with Xeroform for wound care and crutches and a walking boot. She was also given Keflex and pain medication and was referred to the wound healing center. Since then, the patient states that her sutures have been removed and that she has completed her entire course of Keflex. She denies any systemic or localized signs of infection at this time but is getting moderate amounts of drainage which is serosanguineous. She has not been utilizing any compression. She states that there are a few areas of blackened areas on the wound but they seem to be improving in size. Denies any other aggravating relieving factors. She does follow-up with her orthopedic next week. Past medical, family, and social history reviewed and not pertinent to the current visit and all other systems reviewed and negative with exception of those listed above. Progress of Wound: Stable, no new concerns, doing well with the Promogran and 3M wrap Objective Data Objective Data Vital Signs: Vital Signs Temp Pulse Resp BP 98.2 F 77 16 105/60 06/18/21 00:35 06/18/21 00:35 06/18/21 00:35 06/18/21 00:35 Weight: 129 lb Body Mass Index (BMI) 25.2 Charges/Coding Procedures Integumentary 111xxx-113xx: 11482 Shy subq tissue 20 sq cm/< Physical Exam Const alert, oriented x3, no apparent distress, healthy appearing and well nourished General Appearance: cooperative Exam Limitations: no limitations HEENT normocephalic Head and Scalp: normal to inspection Mouth: oral and palatal mucosa normal Eyes General Eye: normal appearance of both eyes Resp normal respiratory effort, normal air movement and no use of accessory muscles Effort and Inspection: able to speak in complete sentences Auscultation: clear to auscultation bilaterally Cardio regular rate, regular rhythm, S1 normal heart sound, S2 normal heart sound, no m urmurs and peripheral pulses 2+ throughout Palpation: normal PMI Rate: regular rate Heart Sounds: S1 normal and S2 normal GI normal to inspection, nondistended, normoactive bowel sounds, soft to palpation, non-tender and non-distended Palpation: soft Extremity normal to inspection and full ROM General Extremity: normal exam except as noted Skin Skin Narrative: Right lower extremity, generalized edema, wound has improved immensely and is now smaller and beefy red and granular without any signs of obvious infection Neuro oriented x3 and moves all extremities Sensorium / Orientation: awake, alert, oriented to person, oriented to place and oriented to time Psych mental status grossly normal, thought process normal and denies hallucinations Appearance: grossly normal Attitude: calm Activity / Motor Behavior: appropriate eye contact Speech: normal speech Thought Process: normal thought process Thought Content: normal thought content Attention / Concentration: attention grossly intact Insight: insight good Judgement: judgement good Debridement Note Debridement Note Wound debrided: Wound to right leg Laterality: Right Type of Debridement: Excisional debridement Anesthesia Used: 4% Lidocaine Solution and 5% Lidocaine Gel Depth: Down to and including healthy tissue and in the subcutaneous layer Percentage of wound debrided: 100 Instrument Used: 5mm curette Tissue Removed: Slough and devitalized tissue Severity: Fat Layer Exposed Amount of bleeding with debridement: Mild Bleeding Controlled with: Pressure Patient tolerated procedure: Patient tolerated procedure well Post-Debridement Measurements and Additional Note: Post-Debridement Measurements/Treatment WC - Nurse 2 - General Ulcer CM Notes Start: 06/20/21 13:06 Freq: Status: Active Protocol: Activity Type Activity Date Activity User E-Sign Co-Sign Detail Recorded Client Recorded Date Recorded By Document 06/20/21 13:43 MW [id number] 06/20/21 13:46 MW 06/20/21 13:43 Wound Center Nurse 2 #1- 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) -Time 13:43 -Correct Patient Yes -Correct Side, Site, Position Yes -Correct Procedure Yes -Procedure Performed Yes -Type of Procedure Debridement -Clinical Debridement Subcutaneous -Tissue Removed Subcutaneous -Post Debridement (cm) - Length 2.3 -Post Debridement (cm) - Width 0.8 -Post Debridement (cm) - Depth 0.4 -Total Square (Post) (cm) 1.84 -Area of Debridement (cm) - Length 2.3 -Area of Debridement (cm) - Width 0.8 -Total Square (Area) (cm) 1.84 -Tunneling No -Undermining/Tunneling No -Circular Undermining No -Wound/Ulcer Outcome Not Healed -Ulcer Cleansing Rinsed/ Irrigated with Saline -Foul Odor after Cleansing No -Bioengineered Tissue No -Bleeding Controlled with Pressure -Offloading No -Treatment Response Procedure Tolerated Well -Debridement - Subq, 1st 20sq cm Yes Pain Scale: 0-10 Numeric Is Patient Pain Free? Yes - Nurse 3 - General Ulcer D/C NN Start: 06/20/21 13:06 Freq: Status: Active Protocol: Activity Type Activity Date Activity User E-Sign Co-Sign Detail Recorded Client Recorded Date Recorded By Document 06/20/21 14:02 SHAWANDA [id number] 06/20/21 14:03 SHAWANDA 06/20/21 14:02 Wound Care Nurse 3 #1- 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) -Ulcer Cleansing Rinsed/ Irrigated with Saline -Foul Odor after Cleansing No -Negative Pressure Wound Therapy N/A -Primary Dressing Applied NonAdherent Contact Layer, Promogran -Promogran 0 Right -Multi-Layered Wrap Application Multi-Layer Comp - Right ($ ) Pain Scale: 0-10 Numeric Is Patient Pain Free? Yes WC - Visit Discharge Discharge Condition Stable Ambulatory Status Ambulatory, Crutches Transportation Private Auto Medication Reconcilliation completed & Yes provided to patient/care provider Clinical Summary of Care Provided Yes Assessment/Plan Assessment/Plan (1) Laceration without foreign body, right lower leg, initial encounter: CODE(S): S81.811A - Laceration without foreign body, right lower leg, initial encounter PLAN: Debridement performed today in clinic as annotated above. Promogran applied today and 3M wrap will be applied. At home wound-care instructions: Plan as above Compression: 3M wrap Off-loading: The patient was instructed to avoid pressure and friction on the affected areas. Reposition every 2 hours at minimum. Avoid prolonged standing and/or dangling of legs. When seated, feet should be elevated at chest level. Frequent ambulation is encouraged. Diet: Patient encouraged to increase protein intake while taking caution to avoid high carbohydrate and/or sugar intake. Patient is a non-smoker Labs/cultures/imaging: Cultures held today. Routine baseline lab work held. Vascular studies held. Follow-up: Return to clinic in 1 week for re-evaluation. She will continue following up with her relocation services specialist Dr. William as well, return sooner or report to the emergency room should symptoms worsen, or new symptoms arise. This note was generated with [employer] dictation software. It may contain incorrect words, spelling, and punctuation that were not noted in checking the note before signing. I have spent 25 minutes today reviewing labs, records, and history. Time includes coordinating care, interpretation of tests, and counseling the patient/family. This also includes time I spent with the patient for exam, treatment plan, and education as well as documenting clinical information in the electronic health record.
[2021-06-24 11:55] VITALS: BP 116/65; PULSE 81; RESP 20; TEMP 36; BMI 25.2
[2021-06-27 13:22] VITALS: BP 128/75; PULSE 75; RESP 20; TEMP 36.2; BMI 25.2
--- NOTE | 2021-06-27 21:42 | PN.PCM_ITS ---
History of Present Illness Date of Service: 06/27/21 Chief Complaint: Right lower extremity wound History of Wound: This is a 60-year-old female who presents to the wound healing center today with a right lower extremity wound. This is a workers comp case as it occurred at work. On March 21, 2021, the patient was pinned between a tow motor and her right leg against the wall causing a laceration. She went to the emergency department at [facility] where orthopedics Dr. William was consulted and he reviewed her imaging washed out the wound and repaired in the emergency department. She was discharged home with Xeroform for wound care and crutches and a walking boot. She was also given Keflex and pain medication and was referred to the wound healing center. Since then, the patient states that her sutures have been removed and that she has completed her entire course of Keflex. She denies any systemic or localized signs of infection at this time but is getting moderate amounts of drainage which is serosanguineous. She has not been utilizing any compression. She states that there are a few areas of blackened areas on the wound but they seem to be improving in size. Denies any other aggravating relieving factors. She does follow-up with her orthopedic next week. Past medical, family, and social history reviewed and not pertinent to the current visit and all other systems reviewed and negative with exception of those listed above. Progress of Wound: Stable, no new concerns, doing well with the Promogran and 3M wrap, does have a follow up with ortho tomorrow Objective Data Objective Data Vital Signs: Vital Signs Temp Pulse Resp BP 97.2 F L 75 20 H 128/75 H 06/27/21 13:22 06/27/21 13:22 06/27/21 13:22 06/27/21 13:22 Weight: 129 lb Body Mass Index (BMI) 25.2 Charges/Coding Procedures Integumentary 111xxx-113xx: 75079 Shy subq tissue 20 sq cm/< Physical Exam Const alert, oriented x3, no apparent distress, healthy appearing and well nourished General Appearance: cooperative Exam Limitations: no limitations HEENT normocephalic Head and Scalp: normal to inspection Mouth: oral and palatal mucosa normal Eyes General Eye: normal appearance of both eyes Resp normal respiratory effort, normal air movement and no use of accessory muscles Effort and Inspection: able to speak in complete sentences Auscultation: clear to auscultation bilaterally Cardio regular rate, regular rhythm, S1 normal heart sound, S2 normal heart sound, no murmurs and peripheral pulses 2+ throughout Palpation: normal PMI Rate: regular rate Heart Sounds: S1 normal and S2 normal GI normal to inspection, nondistended, normoactive bowel sounds, soft to palpation, non-tender and non-distended Palpation: soft Extremity normal to inspection and full ROM General Extremity: normal exam except as noted Skin Skin Narrative: Right lower extremity, generalized edema, wound has improved and is now smaller and beefy red and granular without any signs of obvious infection Neuro oriented x3 and moves all extremities Sensorium / Orientation: awake, alert, oriented to person, oriented to place and oriented to time Psych mental status grossly normal, thought process normal and denies hallucinations Appearance: grossly normal Attitude: calm Activity / Motor Behavior: appropriate eye contact Speech: normal speech Thought Process: normal thought process Thought Content: normal thought content Attention / Concentration: attention grossly intact Insight: insight good Judgement: judgement good Debridement Note Debridement Note Wound debrided: right lower ext wound Laterality: Right Type of Debridement: Excisional debridement Anesthesia Used: 5% Lidocaine Gel Depth: Down to and including healthy tissue and in the subcutaneous layer Percentage of wound debrided: 100 Instrument Used: 5mm curette Tissue Removed: slough and devitalized tissue Severity: Fat Layer Exposed Amount of bleeding with debridement: Mild Bleeding Controlled with: Pressure and Compression and gauze Patient tolerated procedure: Patient tolerated procedure well Post-Debridement Measurements and Additional Note: Post-Debridement Me asurements/Treatment - Nurse 1 - General Ulcer Assessment Start: 06/20/21 13:06 Freq: Status: Active Protocol: [email or web address] Activity Type Activity Date Activity User E-Sign Co-Sign Detail Recorded Client Recorded Date Recorded By Document 06/24/21 11:55 DL [id number] 06/24/21 12:00 DL Document 06/27/21 13:22 AK [id number] 06/27/21 13:25 AK 06/24/21 06/27/21 11:55 13:22 - Today's Visit Information Type of service Nurse-only Follow-up Visit Visit (Physician/ACCOUNTS RECEIVABLE EXECUTIVE ) Arrival Mode Ambulatory, Ambulatory, Crutches Crutches Transfer Assistance None None Patient Identification Verified (Name & Yes Yes ) Patient Requires Transmission-Based No No Precautions Height and Weight Body Mass Index (BMI) 25.2 25.2 BMI Classification Overweight Overweight Vital Signs Temperature (97.8 F-99.1 F) 96.8 F L 97.2 F L Temperature Source Temporal Temporal Pulse Rate (60-100) 81 75 Pulse Location Monitor Monitor Respiratory Rate (12-18) 20 H 20 H Respiratory rate source Observation Observation Blood Pressure (90/60-120/80) 116/65 128/75 H Blood Pressure Mean (mm Hg) 82 92 Source Monitor Monitor History Since Last Visit- (Skip if this is Patient's initial visit) Have you changed medications since your No No last visit? Any new allergies or adverse reactions No No Had a fall/change in ADL's that may No No increase risk of falls Signs or symptoms of abuse and/or No No neglect since last visit Have you been in the hospital since your No No last visit? Has dressing in place as prescribed Yes Yes Has compression in place as prescribed Yes Yes Has offloadiing in place as prescribed Yes Yes Experienced any changes in pain level or No management Pain Scale: 0-10 Numeric Is Patient Pain Free? Yes Yes WC - Nurse 1 - General Ulcer Measurement Start: 06/20/21 13:06 Freq: Status: Active Protocol: Activity Type Activity Date Activity User E-Sign Co-Sign Detail Recorded Client Recorded Date Recorded By Document 06/24/21 11:55 DL [id number] 06/24/21 12:00 DL Document 06/27/21 13:22 AK [id number] 06/27/21 13:25 AK 06/24/21 06/27/21 11:55 13:22 Wound Center Nurse 1 #1- 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) -Current Size (cm) - Length 2 -Current Size (cm) - Width 0.5 -Current Size (cm) - Depth 0.2 -Total Square Cm 1.0 -Photo Taken No No -Exudate Amt Small Small -Exudate Type Serosanguineous Serosanguineous -Wound Margin Distinct, Distinct, Outline Outline Attached Attached -Granulation Amt Large (67-100%) Large (67-100%) -Granulation Quality [place] Pale,[place] -Necrosis Amt None Present (0 Small (1-33%) %) -Necrotic Tissue Type Adherent Slough -Structure Exposed N/A N/A -Texture (Charleen-wound Skin Appearance) Scarring Scarring -Moisture (Charleen-wound Skin Appearance) No Abnormality No Abnormality -Color (Charleen-wound Skin Appearance) No Abnormality No Abnormality -Temperature (Charleen-wound Skin No Abnormality No Abnormality Appearance) (Pt Warm) (Pt Warm) -Tenderness on Palpation (Charleen-wound No No Skin Appearance) -Ulcer Cleansing Not Cleansed Not Cleansed -Foul Odor after Cleansing No No Right Calf (cm) 35.8 34 Right Ankle (cm) 24.5 24 WC - Nurse 2 - General Ulcer CM Notes Start: 06/20/21 13:06 Freq: Status: Active Protocol: Activity Type Activity Date Activity User E-Sign Co-Sign Detail Recorded Client Recorded Date Recorded By Document 06/20/21 13:43 MW [id number] 06/20/21 13:46 MW Document 06/27/21 13:35 MW [id number] 06/27/21 13:42 MW 06/20/21 06/27/21 13:43 13:35 Wound Center Nurse 2 #1- 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) -Time 13:43 13:36 -Correct Patient Yes Yes -Correct Side, Site, Position Yes Yes -Correct Procedure Yes Yes -Procedure Performed Yes Yes -Type of Procedure Debridement Debridement -Clinical Debridement Subcutaneous Subcutaneous -Tissue Removed Subcutaneous Subcutaneous -Post Debridement (cm) - Length 2.3 2.0 -Post Debridement (cm) - Width 0.8 0.8 -Post Debridement (cm) - Depth 0.4 0.3 -Total Square (Post) (cm) 1.84 1.60 -Area of Debridement (cm) - Length 2.3 2.0 -Area of Debridement (cm) - Width 0.8 0.8 -Total Square (Area) (cm) 1.84 1.60 -Tunneling No No -Undermining/Tunneling No No -Circular Undermining No No -Wound/Ulcer Outcome Not Healed Not Healed -Ulcer Cleansing Rinsed/ Rinsed/ Irrigated with Irrigated with Saline Saline -Foul Odor after Cleansing No No -Bioengineered Tissue No No -Bleeding Controlled with Pressure Pressure -Offloading No No -Treatment Response Procedure Procedure Tolerated Well Tolerated Well -Debridement - Subq, 1st 20sq cm Yes Yes Pain Scale: 0-10 Numeric Is Patient Pain Free? Yes Yes WC - Nurse 3 - General Ulcer D/C NN Start: 06/20/21 13:06 Freq: Status: Active Protocol: Activity Type Activity Date Activity User E-Sign Co-Sign Detail Recorded Client Recorded Date Recorded By Document 06/20/21 14:02 AK [id number] 06/20/21 14:03 AK Document 06/24/21 11:55 DL [id number] 06/24/21 12:00 DL Document 06/27/21 13:49 ML [id number] 06/27/21 13:50 ML 06/20/21 06/24/21 06/27/21 14:02 11:55 13:49 Wound Care Nurse 3 #1- 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) -Ulcer Cleansing Rinsed/ Soap and Water Rinsed/ Irrigated with Irrigated with Saline Saline -Foul Odor after Cleansing No -Negative Pressure Wound Therapy N/A -Primary Dressing Applied NonAdherent NonAdherent Promogran Contact Layer, Contact Layer, Promogran Promogran -Other Dressing adaptic -Primary Dressing Covered/Secured with Dry Gauze & Dry Gauze & Roll Gauze, Roll Gauze, Secured with Secured with Tape Tape -Promogran 0 1 1 Right -Multi-Layered Wrap Application Multi-Layer Multi-Layer Comp - Right ($ Comp - Right ($ ) ) -Tubular Bandage Double Layer -Size of Tubigrip Used Size E -Size E ($) 2 Treatment Response Procedure Tolerated Well Vital Signs Temperature (97.8 F-99.1 F) 96.8 F L Temperature Source Temporal Pulse Rate (60-100) 81 Pulse Location Monitor Respiratory Rate (12-18) 20 H Respiratory rate source Observation Blood Pressure (90/60-120/80) 116/65 Blood Pressure Mean (mm Hg) 82 Source Monitor Pain Scale: 0-10 Numeric Is Patient Pain Free? Yes Yes Yes WC - Visit Discharge Discharge Condition Stable Stable Ambulatory Status Ambulatory, Ambulatory, Crutches Crutches Transportation Private Auto Private Auto Medication Reconcilliation completed & Yes provided to patient/care provider Clinical Summary of Care Provided Yes Assessment/Plan Assessment/Plan (1) Laceration without foreign body, right lower leg, initial encounter: CODE(S): S81.811A - Laceration without foreign body, right lower leg, initial encounter PLAN: Debridement performed today in clinic as annotated above. Promogran applied today and 3M wrap will be applied after appointment with ortho. At home wound-care instructions: Plan as above Compression: 3M wrap Off-loading: The patient was instructed to avoid pressure and friction on the affected areas. Reposition every 2 hours at minimum. Avoid prolonged standing a nd/or dangling of legs. When seated, feet should be elevated at chest level. Frequent ambulation is encouraged. Diet: Patient encouraged to increase protein intake while taking caution to avoid high carbohydrate and/or sugar intake. Patient is a non-smoker Labs/cultures/imaging: Cultures held today. Routine baseline lab work held. Vascular studies held. Follow-up: Return to clinic in 1 week for re-evaluation. She will continue following up with her emergency medicine specialist Dr. William as well, return sooner or report to the emergency room should symptoms worsen, or new symptoms arise. This note was generated with [employer] dictation software. It may contain incorrect words, spelling, and punctuation that were not noted in checking the note before signing. I have spent 25 minutes today reviewing labs, records, and history. Time includes coordinating care, interpretation of tests, and counseling the patient/family. This also includes time I spent with the patient for exam, treatment plan, and education as well as documenting clinical information in the electronic health record.
[2021-07-01 14:08] VITALS: BP 138/76; PULSE 83; RESP 16; TEMP 36.4; BMI 25.2
[2021-07-04 13:20] VITALS: BP 111/59; PULSE 77; RESP 16; TEMP 36.2; BMI 25.2
--- NOTE | 2021-07-04 17:02 | PCM.WC.PN ---
History of Present Illness Date of Service: 07/04/21 Chief Complaint: Right lower extremity wound History of Wound: This is a 60-year-old female who presents to the wound healing center today with a right lower extremity wound. This is a workers comp case as it occurred at work. On March 21, 2021, the patient was pinned between a tow motor and her right leg against the wall causing a laceration. She went to the emergency department at [facility] where orthopedics Dr. William was consulted and he reviewed her imaging washed out the wound and repaired in the emergency department. She was discharged home with Xeroform for wound care and crutches and a walking boot. She was also given Keflex and pain medication and was referred to the wound healing center. Since then, the patient states that her sutures have been removed and that she has completed her entire course of Keflex. She denies any systemic or localized signs of infection at this time but is getting moderate amounts of drainage which is serosanguineous. She has not been utilizing any compression. She states that there are a few areas of blackened areas on the wound but they seem to be improving in size. Denies any other aggravating relieving factors. She does follow-up with her orthopedic next week. Past medical, family, and social history reviewed and not pertinent to the current visit and all other systems reviewed and negative with exception of those listed above. Progress of Wound: Worsening, there is some significant superficial worsening this week due to impaired moisture balance, will hold off on the Adaptic and 3M wraps and do silver cell daily with double layer Tubigrip for compression. Cultures were collected today as well given the worsening of the wound size Objective Data Objective Data Vital Signs: Vital Signs Temp Pulse Resp BP 97.1 F L 77 16 111/59 L 07/04/21 13:20 07/04/21 13:20 07/04/21 13:20 07/04/21 13:20 Oxygen Delivery Method Room Air Weight: 129 lb Body Mass Index (BMI) 25.2 Charges/Coding Procedures Integumentary 111xxx-113xx: 63498 Shy subq tissue 20 sq cm/< Add On Codes: 09863 Shy subq tissue add-on Physical Exam Const alert, oriented x3, no apparent distress, healthy appearing and well nourished General Appearance: cooperative Exam Limitations: no limitations HEENT normocephalic Head and Scalp: normal to inspection Mouth: oral and palatal mucosa normal Eyes General Eye: normal appearance of both eyes Resp normal respiratory effort, normal air movement and no use of accessory muscles Effort and Inspection: able to speak in complete sentences Auscultation: clear to auscultation bilaterally Cardio regular rate, regular rhythm, S1 normal heart sound, S2 normal heart sound, no murmurs and peripheral pulses 2+ throughout Palpation: normal PMI Rate: regular rate Heart Sounds: S1 normal and S2 normal GI normal to inspection, nondistended, normoactive bowel sounds, soft to palpation, non-tender and non-distended Palpation: soft Extremity normal to inspection and full ROM General Extremity: normal exam except as noted Skin Skin Narrative: Right lower extremity, generalized edema, wound has deteriorated due to maceration, no erythema or warmth or streaking noted at this time. Neuro oriented x3 and moves all extremities Sensorium / Orientation: awake, alert, oriented to person, oriented to place and oriented to time Psych mental status grossly normal, thought process normal and denies hallucinations Appearance: grossly normal Attitude: calm Activity / Motor Behavior: appropriate eye contact Speech: normal speech Thought Process: normal thought process Thought Content: normal thought content Attention / Concentration: attention grossly intact Insight: insight good Judgement: judgement good Debridement Note Debridement Note Wound debrided: Right lower extremity wound Laterality: Right Type of Debridement: Excisional debridement Anesthesia Used: 4% Lidocaine Solution Depth: in the subcutaneous layer Percentage of wound debrided: 100 Instrument Used: 5mm curette Tissue Removed: Slough and devitalized tissue Severity: Fat Layer Exposed Amount of bleeding with debridement: Mild Bleeding Controlled with: Pressure Patient tolerated procedure: Patient tolerated procedure well Post-Debridement Measurements and Additional Note: Post-Debridement Measurements/Treatment WC - Nurse 1 - General Ulcer Assessment Start: 06/20/21 13:06 Freq: Status: Active Protocol: EMMANUEL.JAMEEL Activity Type Activity Date Activity User E-Sign Co-Sign Detail Recorded Client Recorded Date Recorded By Document 06/24/21 11:55 DL [id number] 06/24/21 12:00 DL Document 06/27/21 13:22 AK [id number] 06/27/21 13:25 AK Document 07/01/21 14:08 [facility] [id number] 07/01/21 14:10 BMF Document 07/04/21 13:20 ML [id number] 07/04/21 13:25 ML 06/24/21 06/27/21 07/01/21 11:55 13:22 14:08 - Today's Visit Information Type of service Nurse-only Follow-up Visit Nurse-only Visit (Physician/SANDWICH ARTIST Visit ) Arrival Mode Ambulatory, Ambulatory, Ambulatory Crutches Crutches Transfer Assistance None None None Patient Identification Verified (Name & Yes Yes Yes ) Patient Requires Transmission-Based No No No Precautions Height and Weight Body Mass Index (BMI) 25.2 25.2 25.2 BMI Classification Overweight Overweight Overweight Vital Signs Temperature (97.8 F-99.1 F) 96.8 F L 97.2 F L 97.6 F L Temperature Source Temporal Temporal Temporal Pulse Rate (60-100) 81 75 83 Pulse Location Monitor Monitor Monitor Respiratory Rate (12-18) 20 H 20 H 16 Respiratory rate source Observation Observation Observation Oxygen Delivery Method Room Air Blood Pressure (90/60-120/80) 116/65 128/75 H 138/76 H Blood Pressure Mean (mm Hg) 82 92 96 Source Monitor Monitor Monitor Position Sitting Blood Pressure Location Left Arm History Since Last Visit- (Skip if this is Patient's initial visit) Have you changed medications since your No No No last visit? Any new allergies or adverse reactions No No No Had a fall/change in ADL's that may No No No increase risk of falls Signs or symptoms of abuse and/or No No No neglect since last visit Have you been in the hospital since your No No No last visit? Has dressing in place as prescribed Yes Yes Yes Has compression in place as prescribed Yes Yes Yes Has offloadiing in place as prescribed Yes Yes N/A Experienced any changes in pain level or No No management Left Footwear Regular Shoe Right Footwear Regular Shoe Pain Scale: 0-10 Numeric Is Patient Pain Free? Yes Yes Yes 07/04/21 13:20 WC - Today's Visit Information Type of service Follow-up Visit (Physician/SANDWICH ARTIST ) Arrival Mode Transfer Assistance Patient Identification Verified (Name & ) Patient Requires Transmission-Based Precautions Height and Weight Body Mass Index (BMI) 25.2 BMI Classification Overweight Vital Signs Temperature (97.8 F-99.1 F) 97.1 F L Temperature Source Temporal Pulse Rate (60-100) 77 Pulse Location Monitor Respiratory Rate (12-18) 16 Respiratory rate source Observation Oxygen Delivery Method Blood Pressure (90/60-120/80) 111/59 L Blood Pressure Mean (mm Hg) 76 Source Monitor Position Sitting Blood Pressure Location Left Arm History Since Last Visit- (Skip if this is Patient's initial visit) Have you changed medications since your No last visit? Any new allergies or adverse reactions No Had a fall/change in ADL's that may No increase risk of falls Signs or symptoms of abuse and/or No neglect since last visit Have you been in the hospital since your No last visit? Has dressing in place as prescribed Yes Has compression in place as prescribed Yes Has offloadiing in place as prescribed N/A Experienced any changes in pain level or No management Left Footwear Regular Shoe Right Footwear Regular Shoe Pain Scale: 0-10 Numeric Is Patient Pain Free? Yes WC - Nurse 1 - General Ulcer Measurement Start: 06/20/21 13:06 Freq: Status: Active Protocol: Activity Type Activity Date Activity User E-Sign Co-Sign Detail Recorded Client Recorded Date Recorded By Document 06/24/21 11:55 DL [id number] 06/24/21 12:00 DL Document 06/27/21 13:22 AK [id number] 06/27/21 13:25 AK Document 07/04/21 13:20 ML [id number] 07/04/21 13:25 ML 06/24/21 06/27/21 07/04/21 11:55 13:22 13:20 Wound Center Nurse 1 #2 r lower leg cluster -Current Size (cm) - Length 10.2 -Current Size (cm) - Width 5.2 -Current Size (cm) - Depth 0.1 -Total Square Cm 53.04 -Exudate Amt Medium -Exudate Type Serosanguineous -Wound Margin Distinct, Outline Attached -Granulation Amt Medium (34-66%) -Slough/Fibrin Yes -Necrosis Amt Medium (34-66%) -Necrotic Tissue Type Adherent Slough -Texture (Charleen-wound Skin Appearance) Assessed -Moisture (Charleen-wound Skin Appearance) Assessed -Color (Charleen-wound Skin Appearance) Assessed -Temperature (Charleen-wound Skin No Abnormality Appearance) (Pt Warm) -Tenderness on Palpation (Charleen-wound Yes Skin Appearance) -Ulcer Cleansing Soap and Water -Foul Odor after Cleansing No -Anesthetic Used 4% Lidocaine Solution #1- 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) -Current Size (cm) - Length 2 0.5 -Current Size (cm) - Width 0.5 0.2 -Current Size (cm) - Depth 0.2 0.1 -Total Square Cm 1.0 0.10 -Photo Taken No No -Exudate Amt Small Small -Exudate Type Serosanguineous Serosanguineous Serosanguineous -Wound Margin Distinct, Distinct, Distinct, Outline Outline Outline Attached Attached Attached -Granulation Amt Large (67-100%) Large (67-100%) Large (67-100%) -Granulation Quality [place] Pale,[place] -Slough/Fibrin Yes -Necrosis Amt None Present (0 Small (1-33%) Small (1-33%) %) -Necrotic Tissue Type Adherent Slough Adherent Slough -Structure Exposed N/A N/A -Texture (Charleen-wound Skin Appearance) Scarring Scarring -Moisture (Charleen-wound Skin Appearance) No Abnormality No Abnormality -Color (Charleen-wound Skin Appearance) No Abnormality No Abnormality -Temperature (Charleen-wound Skin No Abnormality No Abnormality Appearance) (Pt Warm) (Pt Warm) -Tenderness on Palpation (Charleen-wound No No Skin Appearance) -Ulcer Cleansing Not Cleansed Not Cleansed -Foul Odor after Cleansing No No Right Calf (cm) 35.8 34 33.5 Right Ankle (cm) 24.5 24 23.5 WC - Nurse 2 - General Ulcer CM Notes Start: 06/20/21 13:06 Freq: Status: Active Protocol: Activity Type Activity Date Activity User E-Sign Co-Sign Detail Recorded Client Recorded Date Recorded By Document 06/20/21 13:43 MW [id number] 06/20/21 13:46 MW Document 06/27/21 13:35 MW [id number] 06/27/21 13:42 MW Document 07/04/21 13:54 MW [id number] 07/04/21 13:59 MW 06/20/21 06/27/21 07/04/21 13:43 13:35 13:54 Wound Center Nurse 2 #2 r lower leg cluster -Time 13:54 #1- 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) -Time 13:43 13:36 13:55 -Correct Patient Yes Yes Yes -Correct Side, Site, Position Yes Yes Yes -Correct Procedure Yes Yes Yes -Procedure Performed Yes Yes Yes -Type of Procedure Debridement Debridement Debridement -Clinical Debridement Subcutaneous Subcutaneous Subcutaneous -Tissue Removed Subcutaneous Subcutaneous Subcutaneous -Post Debridement (cm) - Length 2.3 2.0 15.0 -Post Debridement (cm) - Width 0.8 0.8 6.0 -Post Debridement (cm) - Depth 0.4 0.3 0.3 -Total Square (Post) (cm) 1.84 1.60 90.00 -Area of Debridement (cm) - Length 2.3 2.0 15.0 -Area of Debridement (cm) - Width 0.8 0.8 6.0 -Total Square (Area) (cm) 1.84 1.60 90.00 -Tunneling No No No -Undermining/Tunneling No No No -Circular Undermining No No No -Wound/Ulcer Outcome Not Healed Not Healed Not Healed -Ulcer Cleansing Rinsed/ Rinsed/ Rinsed/ Irrigated with Irrigated with Irrigated with Saline Saline Saline -Foul Odor after Cleansing No No No -Bioengineered Tissue No No No -Bleeding Controlled with Pressure Pressure Pressure -Treatment Response Procedure Procedure Procedure Tolerated Well Tolerated Well Tolerated Well -Offloading No No No -Debridement - Subq, 1st 20sq cm Yes Yes Yes -Debridement, SubQ, ea addt'l 20sq cm 4 or part thereof Pain Scale: 0-10 Numeric Is Patient Pain Free? Yes Yes Yes WC - Nurse 3 - General Ulcer D/C NN Start: 06/20/21 13:06 Freq: Status: Active Protocol: Activity Type Activity Date Activity User E-Sign Co-Sign Detail Recorded Client Recorded Date Recorded By Document 06/20/21 14:02 AK [id number] 06/20/21 14:03 AK Document 06/24/21 11:55 DL [id number] 06/24/21 12:00 DL Document 06/27/21 13:49 ML [id number] 06/27/21 13:50 ML Document 07/01/21 14:08 BMF [id number] 07/01/21 14:10 BMF Document 07/04/21 14:18 AK [id number] 07/04/21 14:18 AK 06/20/21 06/24/21 06/27/21 14:02 11:55 13:49 Wound Care Nurse 3 #1- 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) -Ulcer Cleansing Rinsed/ Soap and Water Rinsed/ Irrigated with Irrigated with Saline Saline -Foul Odor after Cleansing No -Negative Pressure Wound Therapy N/A -Primary Dressing Applied NonAdherent NonAdherent Promogran Contact Layer, Contact Layer, Promogran Promogran -Other Dressing adaptic -Primary Dressing Covered/Secured with Dry Gauze & Dry Gauze & Roll Gauze, Roll Gauze, Secured with Secured with Tape Tape -Other Covering -Promogran 0 1 1 -Silvercel Right -Lotion applied to leg before compression wrap -Multi-Layered Wrap Application Multi-Layer Multi-Layer Comp - Right ($ Comp - Right ($ ) ) -Tubular Bandage Double Layer -Size of Tubigrip Used Size E -Size E ($) 2 Treatment Response Procedure Tolerated Well Vital Signs Temperature (97.8 F-99.1 F) 96.8 F L Temperature Source Temporal Pulse Rate (60-100) 81 Pulse Location Monitor Respiratory Rate (12-18) 20 H Respiratory rate source Observation Oxygen Delivery Method Blood Pressure (90/60-120/80) 116/65 Blood Pressure Mean (mm Hg) 82 Source Monitor Position Blood Pressure Location Pain Scale: 0-10 Numeric Is Patient Pain Free? Yes Yes Yes WC - Visit Discharge Discharge Condition Stable Stable Ambulatory Status Ambulatory, Ambulatory, Crutches Crutches Transportation Private Auto Private Auto Medication Reconcilliation completed & Yes provided to patient/care provider Clinical Summary of Care Provided Yes 07/01/21 07/04/21 14:08 14:18 Wound Care Nurse 3 #1- 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) -Ulcer Cleansing Soap and Water Rinsed/ Irrigated with Saline -Foul Odor after Cleansing No No -Negative Pressure Wound Therapy N/A -Primary Dressing Applied NonAdherent Silvercel Contact Layer, Promogran -Other Dressing -Primary Dressing Covered/Secured with Dry Gauze & Dry Gauze & Roll Gauze, Roll Gauze, Secured with Secured with Tape,Other Tape -Other Covering ABD -Promogran 1 -Silvercel 1 Right -Lotion applied to leg before No compression wrap -Multi-Layered Wrap Application Multi-Layer Comp - Right ($ ) -Tubular Bandage Double Layer -Size of Tubigrip Used Size E -Size E ($) 2 Treatment Response Procedure Tolerated Well Vital Signs Temperature (97.8 F-99.1 F) 97.6 F L Temperature Source Temporal Pulse Rate (60-100) 83 Pulse Location Monitor Respiratory Rate (12-18) 16 Respiratory rate source Observation Oxygen Delivery Method Room Air Blood Pressure (90/60-120/80) 138/76 H Blood Pressure Mean (mm Hg) 96 Source Monitor Position Sitting Blood Pressure Location Left Arm Pain Scale: 0-10 Numeric Is Patient Pain Free? Yes Yes WC - Visit Discharge Discharge Condition Stable Stable Ambulatory Status Ambulatory Ambulatory, Crutches Transportation Private Auto Private Auto Medication Reconcilliation completed & Yes provided to patient/care provider Clinical Summary of Care Provided Yes Assessment/Plan Assessment/Plan (1) Laceration without foreign body, right lower leg, initial encounter: CODE(S): S81.811A - Laceration without foreign body, right lower leg, initial encounter PLAN: Debridement performed today in clinic as annotated above. Silver cell applied today with double layer Tubigrip's. Cultures were collected today as well. At home wound-care instructions: Silver cell cover with gauze and tape change daily. Compression: Double layer Tubigrip's Off-loading: The patient was instructed to avoid pressure and friction on the affected areas. Reposition every 2 hours at minimum. Avoid prolonged standing and/or dangling of legs. When seated, feet should be elevated at chest level. Frequent ambulation is encouraged. Diet: Patient encouraged to increase protein intake while taking caution to avoid high carbohydrate and/or sugar intake. Patient is a non-smoker Labs/cultures/imaging: Cultures recollected today. Routine baseline lab work held. Vascular studies held. Follow-up: Return to clinic in 1 week for re-evaluation. She will continue following up with her critical care nurse specialist Dr. William as well, return sooner or report to the emergency room should symptoms worsen, or new symptoms arise. This note was generated with [employer] dictation software. It may contain incorrect words, spelling, and punctuation that were not noted in checking the note before signing. I have spent 25 minutes today reviewing labs, records, and history. Time includes coordinating care, interpretation of tests, and counseling the patient/family. This also includes time I spent with the patient for exam, treatment plan, and education as well as documenting clinical information in the electronic health record.
[2021-07-11 13:25] VITALS: TEMP 35.9; BMI 25.2
--- NOTE | 2021-07-11 16:57 | PN.PCM_ITS ---
History of Present Illness Date of Service: 07/11/21 Chief Complaint: Right lower extremity wound History of Wound: This is a 60-year-old female who presents to the wound healing center today with a right lower extremity wound. This is a workers comp case as it occurred at work. On March 21, 2021, the patient was pinned between a tow motor and her right leg against the wall causing a laceration. She went to the emergency department at [facility] where orthopedics Dr. William was consulted and he reviewed her imaging washed out the wound and repaired in the emergency department. She was discharged home with Xeroform for wound care and crutches and a walking boot. She was also given Keflex and pain medication and was referred to the wound healing center. Since then, the patient states that her sutures have been removed and that she has completed her entire course of Keflex. She denies any systemic or localized signs of infection at this time but is getting moderate amounts of drainage which is serosanguineous. She has not been utilizing any compression. She states that there are a few areas of blackened areas on the wound but they seem to be improving in size. Denies any other aggravating relieving factors. She does follow-up with her orthopedic next week. Past medical, family, and social history reviewed and not pertinent to the current visit and all other systems reviewed and negative with exception of those listed above. Progress of Wound: Patient's wound have improved she is currently doing silver cell daily with double layer Tubigrip's. She was recently started on doxycycline for culture of MRSA and Augmentin was added today given her positive anaerobes. Objective Data Objective Data Vital Signs: Vital Signs Temp Pulse Resp BP 96.7 F L 77 16 111/59 L 07/11/21 13:25 07/04/21 13:20 07/04/21 13:20 07/04/21 13:20 Oxygen Delivery Method Room Air Weight: 129 lb Body Mass Index (BMI) 25.2 Lab / Micro Data Micro: Microbiology 07/04/21 13:50 Wound Abcess - Leg, Right Gram Stain - Final 07/04/21 13:50 Wound Abcess - Leg, Right Wound Culture - Final Meth. resistant Staph. aureus 07/04/21 13:50 Wound Abcess - Leg, Right Anaerobic Culture - Final Anaerobic cocci Charges/Coding Procedures Integumentary 111xxx-113xx: 05180 Shy subq tissue 20 sq cm/< Physical Exam Const alert, oriented x3, no apparent distress, healthy appearing and well nourished General Appearance: cooperative Exam Limitations: no limitations HEENT normocephalic Head and Scalp: normal to inspection Mouth: oral and palatal mucosa normal Eyes General Eye: normal appearance of both eyes Resp normal respiratory effort, normal air movement and no use of accessory muscles Effort and Inspection: able to speak in complete sentences Auscultation: clear to auscultation bilaterally Cardio regular rate, regular rhythm, S1 normal heart sound, S2 normal heart sound, no murmurs and peripheral pulses 2+ throughout Palpation: normal PMI Rate: regular rate Heart Sounds: S1 normal and S2 normal GI normal to inspection, nondistended, normoactive bowel sounds, soft to palpation, non-tender and non-distended Palpation: soft Extremity normal to inspection and full ROM General Extremity: normal exam except as noted Skin Skin Narrative: Right lower extremity, generalized edema, wound has improved in size, no erythema or warmth or streaking noted at this time. Neuro oriented x3 and moves all extremities Sensorium / Orientation: awake, alert, oriented to person, oriented to place and oriented to time Psych mental status grossly normal, thought process normal and denies hallucinations Appearance: grossly normal Attitude: calm Activity / Motor Behavior: appropriate eye contact Speech: normal speech Thought Process: normal thought process Thought Content: normal thought content Attention / Concentration: attention grossly intact Insight: insight good Judgement: judgement good Debridement Note Debridement Note Wound debrided: Right lower extremity wound Laterality: Right Type of Debridement: Excisional debridement Anesthesia Used: 5% Lidocaine Gel Depth: Down to and including healthy tissue and in the subcutaneous layer Percentage of wound debrided: 100 Instrument Used: 5mm curette Tissue Removed: Slough and devitalized tissue Severity: Fat Layer Exposed Amount of bleeding with debridement: Mild Bleeding Controlled with: Pressure Patient tolerated procedure: Patient tolerated procedure well Post-Debridement Measurements and Additional Note: Post-Debridement Measurements/Treatment EMMANUEL - Nurse 1 - General Ulcer Assessment Start: 06/20/21 13:06 Freq: Status: Active Protocol: MERE Activity Type Activity Date Activity User E-Sign Co-Sign Detail Recorded Client Recorded Date Recorded By Document 06/24/21 11:55 DL [id number] 06/24/21 12:00 DL Document 06/27/21 13:22 AK [id number] 06/27/21 13:25 AK Document 07/01/21 14:08 BMF [id number] 07/01/21 14:10 BMF Document 07/04/21 13:20 ML [id number] 07/04/21 13:25 ML Document 07/11/21 13:25 AK [id number] 07/11/21 13:27 AK 06/24/21 06/27/21 07/01/21 11:55 13:22 14:08 WC - Today's Visit Information Type of service Nurse-only Follow-up Visit Nurse-only Visit (Physician/MURAL PAINTER Visit ) Arrival Mode Ambulatory, Ambulatory, Ambulatory Crutches Crutches Transfer Assistance None None None Patient Identification Verified (Name & Yes Yes Yes ) Patient Requires Transmission-Based No No No Precautions Safety Precautions Height and Weight Body Mass Index (BMI) 25.2 25.2 25.2 BMI Classification Overweight Overweight Overweight Vital Signs Temperature (97.8 F-99.1 F) 96.8 F L 97.2 F L 97.6 F L Temperature Source Temporal Temporal Temporal Pulse Rate (60-100) 81 75 83 Pulse Location Monitor Monitor Monitor Respiratory Rate (12-18) 20 H 20 H 16 Respiratory rate source Observation Observation Observation Oxygen Delivery Method Room Air Blood Pressure (90/60-120/80) 116/65 128/75 H 138/76 H Blood Pressure Mean (mm Hg) 82 92 96 Source Monitor Monitor Monitor Position Sitting Blood Pressure Location Left Arm History Since Last Visit- (Skip if this is Patient's initial visit) Have you changed medications since your No No No last visit? Any new allergies or adverse reactions No No No Had a fall/change in ADL's that may No No No increase risk of falls Signs or symptoms of abuse and/or No No No neglect since last visit Have you been in the hospital since your No No No last visit? Has dressing in place as prescribed Yes Yes Yes Has compression in place as prescribed Yes Yes Yes Has offloadiing in place as prescribed Yes Yes N/A Experienced any changes in pain level or No No management Left Footwear Regular Shoe Right Footwear Regular Shoe Pain Scale: 0-10 Numeric Is Patient Pain Free? Yes Yes Yes 07/04/21 07/11/21 13:20 13:25 WC - Today's Visit Information Type of service Follow-up Visit Follow-up Visit (Physician/MURAL PAINTER (Physician/MURAL PAINTER ) ) Arrival Mode Ambulatory, Crutches Transfer Assistance Patient Identification Verified (Name & Yes ) Patient Requires Transmission-Based No Precautions Safety Precautions NA Height and Weight Body Mass Index (BMI) 25.2 25.2 BMI Classification Overweight Overweight Vital Signs Temperature (97.8 F-99.1 F) 97.1 F L 96.7 F L Temperature Source Temporal Temporal Pulse Rate (60-100) 77 Pulse Location Monitor Respiratory Rate (12-18) 16 Respiratory rate source Observation Oxygen Delivery Method Blood Pressure (90/60-120/80) 111/59 L Blood Pressure Mean (mm Hg) 76 Source Monitor Position Sitting Blood Pressure Location Left Arm History Since Last Visit- (Skip if this is Patient's initial visit) Have you changed medications since your No No last visit? Any new allergies or adverse reactions No No Had a fall/change in ADL's that may No No increase risk of falls Signs or symptoms of abuse and/or No No neglect since last visit Have you been in the hospital since your No No last visit? Has dressing in place as prescribed Yes Yes Has compression in place as prescribed Yes N/A Has offloadiing in place as prescribed N/A N/A Experienced any changes in pain level or No No management Left Footwear Regular Shoe Regular Shoe Right Footwear Regular Shoe Regular Shoe Pain Scale: 0-10 Numeric Is Patient Pain Free? Yes Yes WC - Nurse 1 - General Ulcer Measurement Start: 06/20/21 13:06 Freq: Status: Active Protocol: Activity Type Activity Date Activity User E-Sign Co-Sign Detail Recorded Client Recorded Date Recorded By Document 06/24/21 11:55 DL [id number] 06/24/21 12:00 DL Document 06/27/21 13:22 AK [id number] 06/27/21 13:25 AK Document 07/04/21 13:20 ML [id number] 07/04/21 13:25 ML Document 07/11/21 13:25 AK [id number] 07/11/21 13:27 AK 06/24/21 06/27/2107/04/22 11:55 13:22 13:20 Wound Center Nurse 1 #2 r lower leg cluster -Current Size (cm) - Length 10.2 -Current Size (cm) - Width 5.2 -Current Size (cm) - Depth 0.1 -Total Square Cm 53.04 -Exudate Amt Medium -Exudate Type Serosanguineous -Wound Margin Distinct, Outline Attached -Granulation Amt Medium (34-66%) -Slough/Fibrin Yes -Necrosis Amt Medium (34-66%) -Necrotic Tissue Type Adherent Slough -Texture (Charleen-wound Skin Appearance) Assessed -Moisture (Charleen-wound Skin Appearance) Assessed -Color (Charleen-wound Skin Appearance) Assessed -Temperature (Charleen-wound Skin No Abnormality Appearance) (Pt Warm) -Tenderness on Palpation (Charleen-wound Yes Skin Appearance) -Ulcer Cleansing Soap and Water -Foul Odor after Cleansing No -Anesthetic Used 4% Lidocaine Solution #1- 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) -Combined with other wound -Current Size (cm) - Length 2 0.5 -Current Size (cm) - Width 0.5 0.2 -Current Size (cm) - Depth 0.2 0.1 -Total Square Cm 1.0 0.10 -Photo Taken No No -Tunneling -Undermining/Tunneling -Circular Undermining -Change in Wound Grade/Stage -Exudate Amt Small Small -Exudate Type Serosanguineous Serosanguineous Serosanguineous -Wound Margin Distinct, Distinct, Distinct, Outline Outline Outline Attached Attached Attached -Granulation Amt Large (67-100%) Large (67-100%) Large (67-100%) -Granulation Quality [place] Pale,[place] -Slough/Fibrin Yes -Necrosis Amt None Present (0 Small (1-33%) Small (1-33%) %) -Necrotic Tissue Type Adherent Slough Adherent Slough -Structure Exposed N/A N/A -Texture (Charleen-wound Skin Appearance) Scarring Scarring -Moisture (Charleen-wound Skin Appearance) No Abnormality No Abnormality -Color (Charleen-wound Skin Appearance) No Abnormality No Abnormality -Temperature (Charleen-wound Skin No Abnormality No Abnormality Appearance) (Pt Warm) (Pt Warm) -Tenderness on Palpation (Charleen-wound No No Skin Appearance) -Ulcer Cleansing Not Cleansed Not Cleansed -Foul Odor after Cleansing No No -Anesthetic Used Right Calf (cm) 35.8 34 33.5 Right Ankle (cm) 24.5 24 23.5 07/11/21 13:25 Wound Center Nurse 1 #2 r lower leg cluster -Current Size (cm) - Length -Current Size (cm) - Width -Current Size (cm) - Depth -Total Square Cm -Exudate Amt -Exudate Type -Wound Margin -Granulation Amt -Slough/Fibrin -Necrosis Amt -Necrotic Tissue Type -Texture (Charleen-wound Skin Appearance) -Moisture (Charleen-wound Skin Appearance) -Color (Charleen-wound Skin Appearance) -Temperature (Charleen-wound Skin Appearance) -Tenderness on Palpation (Charleen-wound Skin Appearance) -Ulcer Cleansing -Foul Odor after Cleansing -Anesthetic Used #1- 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) -Combined with other wound No -Current Size (cm) - Length 15 -Current Size (cm) - Width 9 -Current Size (cm) - Depth 0.1 -Total Square Cm 135 -Photo Taken No -Tunneling No -Undermining/Tunneling No -Circular Undermining No -Change in Wound Grade/Stage No -Exudate Amt Medium -Exudate Type Serosanguineous -Wound Margin Distinct, Outline Attached -Granulation Amt Medium (34-66%) -Granulation Quality [place],Red -Slough/Fibrin No -Necrosis Amt None Present (0 %) -Necrotic Tissue Type -Structure Exposed N/A -Texture (Charleen-wound Skin Appearance) No Abnormality, Assessed -Moisture (Charleen-wound Skin Appearance) No Abnormality, Assessed -Color (Charleen-wound Skin Appearance) No Abnormality, Assessed -Temperature (Charleen-wound Skin No Abnormality Appearance) (Pt Warm) -Tenderness on Palpation (Charleen-wound No Skin Appearance) -Ulcer Cleansing Rinsed/ Irrigated with Saline -Foul Odor after Cleansing No -Anesthetic Used 4% Lidocaine Solution Right Calf (cm) Right Ankle (cm) WC - Nurse 2 - General Ulcer CM Notes Start: 06/20/21 13:06 Freq: Status: Active Protocol: Activity Type Activity Date Activity User E-Sign Co-Sign Detail Recorded Client Recorded Date Recorded By Document 06/20/21 13:43 MW [id number] 06/20/21 13:46 MW Document 06/27/21 13:35 MW [id number] 06/27/21 13:42 MW Document 07/04/21 13:54 MW [id number] 07/04/21 13:59 MW Document 07/11/21 13:41 MW [id number] 07/11/21 13:46 MW 06/20/21 06/27/21 07/04/21 13:43 13:35 13:54 Wound Center Nurse 2 #2 r lower leg cluster -Time 13:54 #1- 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) -Time 13:43 13:36 13:55 -Correct Patient Yes Yes Yes -Correct Side, Site, Position Yes Yes Yes -Correct Procedure Yes Yes Yes -Procedure Performed Yes Yes Yes -Type of Procedure Debridement Debridement Debridement -Clinical Debridement Subcutaneous Subcutaneous Subcutaneous -Tissue Removed Subcutaneous Subcutaneous Subcutaneous -Post Debridement (cm) - Length 2.3 2.0 15.0 -Post Debridement (cm) - Width 0.8 0.8 6.0 -Post Debridement (cm) - Depth 0.4 0.3 0.3 -Total Square (Post) (cm) 1.84 1.60 90.00 -Area of Debridement (cm) - Length 2.3 2.0 15.0 -Area of Debridement (cm) - Width 0.8 0.8 6.0 -Total Square (Area) (cm) 1.84 1.60 90.00 -Tunneling No No No -Undermining/Tunneling No No No -Circular Undermining No No No -Wound/Ulcer Outcome Not Healed Not Healed Not Healed -Ulcer Cleansing Rinsed/ Rinsed/ Rinsed/ Irrigated with Irrigated with Irrigated with Saline Saline Saline -Foul Odor after Cleansing No No No -Bioengineered Tissue No No No -Bleeding Controlled with Pressure Pressure Pressure -Treatment Response Procedure Procedure Procedure Tolerated Well Tolerated Well Tolerated Well -Offloading No No No -Debridement - Subq, 1st 20sq cm Yes Yes Yes -Debridement, SubQ, ea addt'l 20sq cm 4 or part thereof Pain Scale: 0-10 Numeric Is Patient Pain Free? Yes Yes Yes 07/11/21 13:41 Wound Center Nurse 2 #2 r lower leg cluster -Time #1- 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) -Time 13:41 -Correct Patient Yes -Correct Side, Site, Position Yes -Correct Procedure Yes -Procedure Performed Yes -Type of Procedure Debridement -Clinical Debridement Subcutaneous -Tissue Removed Subcutaneous -Post Debridement (cm) - Length 5.0 -Post Debridement (cm) - Width 1.5 -Post Debridement (cm) - Depth 0.2 -Total Square (Post) (cm) 7.50 -Area of Debridement (cm) - Length 5.0 -Area of Debridement (cm) - Width 1.5 -Total Square (Area) (cm) 7.50 -Tunneling No -Undermining/Tunneling No -Circular Undermining No -Wound/Ulcer Outcome Not Healed -Ulcer Cleansing Rinsed/ Irrigated with Saline -Foul Odor after Cleansing No -Bioengineered Tissue No -Bleeding Controlled with Pressure -Treatment Response Procedure Tolerated Well -Offloading No -Debridement - Subq, 1st 20sq cm Yes -Debridement, SubQ, ea addt'l 20sq cm or part thereof Pain Scale: 0-10 Numeric Is Patient Pain Free? Yes WC - Nurse 3 - General Ulcer D/C NN Start: 06/20/21 13:06 Freq: Status: Active Protocol: Activity Type Activity Date Activity User E-Sign Co-Sign Detail Recorded Client Recorded Date Recorded By Document 06/20/21 14:02 AK [id number] 06/20/21 14:03 AK Document 06/24/21 11:55 DL [id number] 06/24/21 12:00 DL Document 06/27/21 13:49 ML [id number] 06/27/21 13:50 ML Document 07/01/21 14:08 [facility] [id number] 07/01/21 14:10 BMF Document 07/04/21 14:18 AK [id number] 07/04/21 14:18 AK Document 07/11/21 14:00 ML [id number] 07/11/21 14:01 ML 06/20/21 06/24/21 06/27/21 14:02 11:55 13:49 Wound Care Nurse 3 #1- 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) -Ulcer Cleansing Rinsed/ Soap and Water Rinsed/ Irrigated with Irrigated with Saline Saline -Foul Odor after Cleansing No -Negative Pressure Wound Therapy N/A -Primary Dressing Applied NonAdherent NonAdherent Promogran Contact Layer, Contact Layer, Promogran Promogran -Other Dressing adaptic -Primary Dressing Covered/Secured with Dry Gauze & Dry Gauze & Roll Gauze, Roll Gauze, Secured with Secured with Tape Tape -Other Covering -Promogran 0 1 1 -Silvercel Right -Lotion applied to leg before compression wrap -Multi-Layered Wrap Application Multi-Layer Multi-Layer Comp - Right ($ Comp - Right ($ ) ) -Tubular Bandage Double Layer -Size of Tubigrip Used Size E -Size E ($) 2 Treatment Response Procedure Tolerated Well Vital Signs Temperature (97.8 F-99.1 F) 96.8 F L Temperature Source Temporal Pulse Rate (60-100) 81 Pulse Location Monitor Respiratory Rate (12-18) 20 H Respiratory rate source Observation Oxygen Delivery Method Blood Pressure (90/60-120/80) 116/65 Blood Pressure Mean (mm Hg) 82 Source Monitor Position Blood Pressure Location Pain Scale: 0-10 Numeric Is Patient Pain Free? Yes Yes Yes WC - Visit Discharge Discharge Condition Stable Stable Ambulatory Status Ambulatory, Ambulatory, Crutches Crutches Transportation Private Auto Private Auto Medication Reconcilliation completed & Yes provided to patient/care provider Clinical Summary of Care Provided Yes 07/01/21 07/04/21 07/11/21 14:08 14:18 14:00 Wound Care Nurse 3 #1- 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) -Ulcer Cleansing Soap and Water Rinsed/ Rinsed/ Irrigated with Irrigated with Saline Saline -Foul Odor after Cleansing No No No -Negative Pressure Wound Therapy N/A -Primary Dressing Applied NonAdherent Silvercel Silvercel Contact Layer, Promogran -Other Dressing ABD -Primary Dressing Covered/Secured with Dry Gauze & Dry Gauze & Dry Gauze & Roll Gauze, Roll Gauze, Roll Gauze, Secured with Secured with Secured with Tape,Other Tape Tape -Other Covering ABD -Promogran 1 -Silvercel 1 1 Right -Lotion applied to leg before No compression wrap -Multi-Layered Wrap Application Multi-Layer Comp - Right ($ ) -Tubular Bandage Double Layer -Size of Tubigrip Used Size E -Size E ($) 2 Treatment Response Procedure Tolerated Well Vital Signs Temperature (97.8 F-99.1 F) 97.6 F L Temperature Source Temporal Pulse Rate (60-100) 83 Pulse Location Monitor Respiratory Rate (12-18) 16 Respiratory rate source Observation Oxygen Delivery Method Room Air Blood Pressure (90/60-120/80) 138/76 H Blood Pressure Mean (mm Hg) 96 Source Monitor Position Sitting Blood Pressure Location Left Arm Pain Scale: 0-10 Numeric Is Patient Pain Free? Yes Yes Yes WC - Visit Discharge Discharge Condition Stable Stable Stable Ambulatory Status Ambulatory Ambulatory, Ambulatory Crutches Transportation Private Auto Private Auto Medication Reconcilliation completed & Yes No provided to patient/care provider Clinical Summary of Care Provided Yes Yes Assessment/Plan Assessment/Plan (1) Laceration without foreign body, right lower leg, initial encounter: CODE(S): S81.811A - Laceration without foreign body, right lower leg, initial encounter PLAN: Debridement performed today in clinic as annotated above. Silver cell applied today with double layer Tubigrip's. At home wound-care instructions: Silver cell cover with gauze and tape change daily. Compression: Double layer Tubigrip's Off-loading: The patient was instructed to avoid pressure and friction on the affected areas. Reposition every 2 hours at minimum. Avoid prolonged standing and/or dangling of legs. When seated, feet should be elevated at chest level. Frequent ambulation is encouraged. Diet: Patient encouraged to increase protein intake while taking caution to avoid high carbohydrate and/or sugar intake. Patient is a non-smoker Labs/cultures/imaging: Cultures recollected last week and grew MRSA and anaerobes, patient was placed on doxycycline and Augmentin. Routine baseline lab work held. Vascular studies held. Follow-up: Return to clinic in 1 week for re-evaluation. She will continue following up with her dentofacial orthopedics dentist Dr. William as well, return sooner or report to the emergency room should symptoms worsen, or new symptoms arise. This note was generated with [employer] dictation software. It may contain incorrect words, spelling, and punctuation that were not noted in checking the note before signing. I have spent 25 minutes today reviewing labs, records, and history. Time includes coordinating care, interpretation of tests, and counseling the patient/family. This also includes time I spent with the patient for exam, tr eatment plan, and education as well as documenting clinical information in the electronic health record.
[2021-07-18 14:04] VITALS: BP 110/70; PULSE 68; RESP 16; TEMP 36.1; BMI 25.2
--- NOTE | 2021-07-18 17:16 | PN.PCM_ITS ---
History of Present Illness Date of Service: 07/18/21 Chief Complaint: Right lower extremity wound History of Wound: This is a 60-year-old female who presents to the wound healing center today with a right lower extremity wound. This is a workers comp case as it occurred at work. On March 21, 2021, the patient was pinned between a tow motor and her right leg against the wall causing a laceration. She went to the emergency department at [facility] where orthopedics Dr. William was consulted and he reviewed her imaging washed out the wound and repaired in the emergency department. She was discharged home with Xeroform for wound care and crutches and a walking boot. She was also given Keflex and pain medication and was referred to the wound healing center. Since then, the patient states that her sutures have been removed and that she has completed her entire course of Keflex. She denies any systemic or localized signs of infection at this time but is getting moderate amounts of drainage which is serosanguineous. She has not been utilizing any compression. She states that there are a few areas of blackened areas on the wound but they seem to be improving in size. Denies any other aggravating relieving factors. She does follow-up with her orthopedic next week. Past medical, family, and social history reviewed and not pertinent to the current visit and all other systems reviewed and negative with exception of those listed above. Progress of Wound: Patient's wound have improved she is currently doing silver cell daily with double layer Tubigrip's. She was recently started on doxycycline for culture of MRSA and Augmentin was added prior given her positive anaerobes which she is tolerating. Objective Data Objective Data Vital Signs: Vital Signs Temp Pulse Resp BP 97.0 F L 68 16 110/70 07/18/21 14:04 07/18/21 14:04 07/18/21 14:04 07/18/21 14:04 Oxygen Delivery Method Room Air Weight: 129 lb Body Mass Index (BMI) 25.2 Lab / Micro Data Micro: Microbiology 07/04/21 13:50 Wound Abcess - Leg, Right Gram Stain - Final 07/04/21 13:50 Wound Abcess - Leg, Right Wound Culture - Final Meth. resistant Staph. aureus 07/04/21 13:50 Wound Abcess - Leg, Right Anaerobic Culture - Final Anaerobic cocci Charges/Coding Procedures Integumentary 111xxx-113xx: [id number] Shy subq tissue 20 sq cm/< Physical Exam Const alert, oriented x3, no apparent distress, healthy appearing and well nourished General Appearance: cooperative Exam Limitations: no limitations HEENT normocephalic Head and Scalp: normal to inspection Mouth: oral and palatal mucosa normal Eyes General Eye: normal appearance of both eyes Resp normal respiratory effort, normal air movement and no use of accessory muscles Effort and Inspection: able to speak in complete sentences Auscultation: clear to auscultation bilaterally Cardio regular rate, regular rhythm, S1 normal heart sound, S2 normal heart sound, no murmurs and peripheral pulses 2+ throughout Palpation: normal PMI Rate: regular rate Heart Sounds: S1 normal and S2 normal GI normal to inspection, nondistended, normoactive bowel sounds, soft to palpation, non-tender and non-distended Palpation: soft Extremity normal to inspection and full ROM General Extremity: normal exam except as noted Skin Skin Narrative: Right lower extremity, generalized edema, wound has improved in size, no erythema or warmth or streaking noted at this time. Neuro oriented x3 and moves all extremities Sensorium / Orientation: awake, alert, oriented to person, oriented to place and oriented to time Psych mental status grossly normal, thought process normal and denies hallucinations Appearance: grossly normal Attitude: calm Activity / Motor Behavior: appropriate eye contact Speech: normal speech Thought Process: normal thought process Thought Content: normal thought content Attention / Concentration: attention grossly intact Insight: insight good Judgement: judgement good Debridement Note Debridement Note Wound debrided: Right lower extremity wound Laterality: Right Type of Debridement: Excisional debridement Anesthesia Used: 5% Lidocaine Gel Depth: Down to and including healthy tissue and in the subcutaneous layer Percentage of wound debrided: 100 Instrument Used: 3mm curette Tissue Removed: Slough and devitalized tissue Severity: Fat Layer Exposed Amount of bleeding with debridement: Mild Bleeding Controlled with: Pressure Patient tolerated procedure: Patient tolerated procedure well Post-Debridement Measurements and Additional Note: Post-Debridement Measurements/Treatment EMMANUEL - Nurse 1 - General Ulcer Assessment Start: 06/20/21 13:06 Freq: Status: Active Protocol: MERE Activity Type Activity Date Activity User E-Sign Co-Sign Detail Recorded Client Recorded Date Recorded By Document 06/24/21 11:55 DL [id number] 06/24/21 12:00 DL Document 06/27/21 13:22 AK [id number] 06/27/21 13:25 AK Document 07/01/21 14:08 BMF [id number] 07/01/21 14:10 BMF Document 07/04/21 13:20 ML [id number] 07/04/21 13:25 ML Document 07/11/21 13:25 AK [id number] 07/11/21 13:27 AK Document 07/18/21 14:04 ML [id number] 07/18/21 14:08 ML 06/24/21 06/27/21 07/01/21 11:55 13:22 14:08 WC - Today's Visit Information Type of service Nurse-only Follow-up Visit Nurse-only Visit (Physician/MANAGER FIELD INVESTIGATIONS Visit ) Arrival Mode Ambulatory, Ambulatory, Ambulatory Crutches Crutches Transfer Assistance None None None Patient Identification Verified (Name & Yes Yes Yes ) Patient Requires Transmission-Based No No No Precautions Safety Precautions Height and Weight Body Mass Index (BMI) 25.2 25.2 25.2 BMI Classification Overweight Overweight Overweight Vital Signs Temperature (97.8 F-99.1 F) 96.8 F L 97.2 F L 97.6 F L Temperature Source Temporal Temporal Temporal Pulse Rate (60-100) 81 75 83 Pulse Location Monitor Monitor Monitor Respiratory Rate (12-18) 20 H 20 H 16 Respiratory rate source Observation Observation Observation Oxygen Delivery Method Room Air Blood Pressure (90/60-120/80) 116/65 128/75 H 138/76 H Blood Pressure Mean (mm Hg) 82 92 96 Source Monitor Monitor Monitor Position Sitting Blood Pressure Location Left Arm History Since Last Visit- (Skip if this is Patient's initial visit) Have you changed medications since your No No No last visit? Any new allergies or adverse reactions No No No Had a fall/change in ADL's that may No No No increase risk of falls Signs or symptoms of abuse and/or No No No neglect since last visit Have you been in the hospital since your No No No last visit? Has dressing in place as prescribed Yes Yes Yes Has compression in place as prescribed Yes Yes Yes Has offloadiing in place as prescribed Yes Yes N/A Experienced any changes in pain level or No No management Left Footwear Regular Shoe Right Footwear Regular Shoe Pain Scale: 0-10 Numeric Is Patient Pain Free? Yes Yes Yes 07/04/21 07/11/21 07/18/21 13:20 13:25 14:04 - Today's Visit Information Type of service Follow-up Visit Follow-up Visit Follow-up Visit (Physician/MANAGER FIELD INVESTIGATIONS (Physician/MANAGER FIELD INVESTIGATIONS (Physician/MANAGER FIELD INVESTIGATIONS ) ) ) Arrival Mode Ambulatory, Crutches Crutches Transfer Assistance None Patient Identification Verified (Name & Yes Yes ) Patient Requires Transmission-Based No No Precautions Safety Precautions NA NA Height and Weight Body Mass Index (BMI) 25.2 25.2 25.2 BMI Classification Overweight Overweight Overweight Vital Signs Temperature (97.8 F-99.1 F) 97.1 F L 96.7 F L 97.0 F L Temperature Source Temporal Temporal Temporal Pulse Rate (60-100) 77 68 Pulse Location Monitor Monitor Respiratory Rate (12-18) 16 16 Respiratory rate source Observation Observation Oxygen Delivery Method Blood Pressure (90/60-120/80) 111/59 L 110/70 Blood Pressure Mean (mm Hg) 76 83 Source Monitor Monitor Position Sitting Sitting Blood Pressure Location Left Arm Left Arm History Since Last Visit- (Skip if this is Patient's initial visit) Have you changed medications since your No No No last visit? Any new allergies or adverse reactions No No No Had a fall/change in ADL's that may No No No increase risk of falls Signs or symptoms of abuse and/or No No No neglect since last visit Have you been in the hospital since your No No No last visit? Has dressing in place as prescribed Yes Yes Yes Has compression in place as prescribed Yes N/A N/A Has offloadiing in place as prescribed N/A N/A N/A Experienced any changes in pain level or No No No management Left Footwear Regular Shoe Regular Shoe Regular Shoe Right Footwear Regular Shoe Regular Shoe Regular Shoe Pain Scale: 0-10 Numeric Is Patient Pain Free? Yes Yes Yes - Nurse 1 - General Ulcer Measurement Start: 06/20/21 13:06 Freq: Status: Active Protocol: Activity Type Activity Date Activity User E-Sign Co-Sign Detail Recorded Client Recorded Date Recorded By Document 06/24/21 11:55 DL [id number] 06/24/21 12:00 DL Document 06/27/21 13:22 AK [id number] 06/27/21 13:25 AK Document 07/04/21 13:20 ML [id number] 07/04/21 13:25 ML Document 07/11/21 13:25 AK [id number] 07/11/21 13:27 AK Document 07/18/21 14:04 ML [id number] 07/18/21 14:08 ML 06/24/21 06/27/21 07/04/21 11:55 13:22 13:20 Wound Center Nurse 1 #2 r lower leg cluster -Current Size (cm) - Length 10.2 -Current Size (cm) - Width 5.2 -Current Size (cm) - Depth 0.1 -Total Square Cm 53.04 -Exudate Amt Medium -Exudate Type Serosanguineous -Wound Margin Distinct, Outline Attached -Granulation Amt Medium (34-66%) -Slough/Fibrin Yes -Necrosis Amt Medium (34-66%) -Necrotic Tissue Type Adherent Slough -Texture (Charleen-wound Skin Appearance) Assessed -Moisture (Charleen-wound Skin Appearance) Assessed -Color (Charleen-wound Skin Appearance) Assessed -Temperature (Charleen-wound Skin No Abnormality Appearance) (Pt Warm) -Tenderness on Palpation (Charleen-wound Yes Skin Appearance) -Ulcer Cleansing Soap and Water -Foul Odor after Cleansing No -Anesthetic Used 4% Lidocaine Solution #1- 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) -Combined with other wound -Current Size (cm) - Length 2 0.5 -Current Size (cm) - Width 0.5 0.2 -Current Size (cm) - Depth 0.2 0.1 -Total Square Cm 1.0 0.10 -Photo Taken No No -Tunneling -Undermining/Tunneling -Circular Undermining -Change in Wound Grade/Stage -Exudate Amt Small Small -Exudate Type Serosanguineous Serosanguineous Serosanguineous -Wound Margin Distinct, Distinct, Distinct, Outline Outline Outline Attached Attached Attached -Granulation Amt Large (67-100%) Large (67-100%) Large (67-100%) -Granulation Quality Rivanna Pale,Rivanna -Slough/Fibrin Yes -Necrosis Amt None Present (0 Small (1-33%) Small (1-33%) %) -Necrotic Tissue Type Adherent Slough Adherent Slough -Structure Exposed N/A N/A -Texture (Charleen-wound Skin Appearance) Scarring Scarring -Moisture (Charleen-wound Skin Appearance) No Abnormality No Abnormality -Color (Charleen-wound Skin Appearance) No Abnormality No Abnormality -Temperature (Charleen-wound Skin No Abnormality No Abnormality Appearance) (Pt Warm) (Pt Warm) -Tenderness on Palpation (Charleen-wound No No Skin Appearance) -Ulcer Cleansing Not Cleansed Not Cleansed -Foul Odor after Cleansing No No -Anesthetic Used Right Calf (cm) 35.8 34 33.5 Right Ankle (cm) 24.5 24 23.5 07/11/21 07/18/21 13:25 14:04 Wound Center Nurse 1 #2 r lower leg cluster -Current Size (cm) - Length -Current Size (cm) - Width -Current Size (cm) - Depth -Total Square Cm -Exudate Amt -Exudate Type -Wound Margin -Granulation Amt -Slough/Fibrin -Necrosis Amt -Necrotic Tissue Type -Texture (Charleen-wound Skin Appearance) -Moisture (Charleen-wound Skin Appearance) -Color (Charleen-wound Skin Appearance) -Temperature (Charleen-wound Skin Appearance) -Tenderness on Palpation (Charleen-wound Skin Appearance) -Ulcer Cleansing -Foul Odor after Cleansing -Anesthetic Used #1- 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) -Combined with other wound No -Current Size (cm) - Length 15 0.5 -Current Size (cm) - Width 9 1 -Current Size (cm) - Depth 0.1 0.2 -Total Square Cm 135 0.5 -Photo Taken No -Tunneling No -Undermining/Tunneling No -Circular Undermining No -Change in Wound Grade/Stage No -Exudate Amt Medium Medium -Exudate Type Serosanguineous Serosanguineous -Wound Margin Distinct, Distinct, Outline Outline Attached Attached -Granulation Amt Medium (34-66%) Medium (34-66%) -Granulation Quality Rivanna,Red -Slough/Fibrin No Yes -Necrosis Amt None Present (0 Medium (34-66%) %) -Necrotic Tissue Type Adherent Slough -Structure Exposed N/A -Texture (Charleen-wound Skin Appearance) No Abnormality, Assessed Assessed -Moisture (Charleen-wound Skin Appearance) No Abnormality, Assessed Assessed -Color (Charleen-wound Skin Appearance) No Abnormality, Assessed Assessed -Temperature (Charleen-wound Skin No Abnormality No Abnormality Appearance) (Pt Warm) (Pt Warm) -Tenderness on Palpation (Charleen-wound No Yes Skin Appearance) -Ulcer Cleansing Rinsed/ Soap and Water Irrigated with Saline -Foul Odor after Cleansing No Yes -Anesthetic Used 4% Lidocaine 5% Lidocaine Solution Gel Right Calf (cm) 36 Right Ankle (cm) 24 WC - Nurse 2 - General Ulcer CM Notes Start: 06/20/21 13:06 Freq: Status: Active Protocol: Activity Type Activity Date Activity User E-Sign Co-Sign Detail Recorded Client Recorded Date Recorded By Document 06/20/21 13:43 MW [id number] 06/20/21 13:46 MW Document 06/27/21 13:35 MW [id number] 06/27/21 13:42 MW Document 07/04/21 13:54 MW [id number] 07/04/21 13:59 MW Document 07/11/21 13:41 MW [id number] 07/11/21 13:46 MW Document 07/18/21 14:24 ML [id number] 07/18/21 14:28 ML 06/20/21 06/27/21 07/04/21 13:43 13:35 13:54 Wound Center Nurse 2 #2 r lower leg cluster -Time 13:54 #1- 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) -Time 13:43 13:36 13:55 -Correct Patient Yes Yes Yes -Correct Side, Site, Position Yes Yes Yes -Correct Procedure Yes Yes Yes -Procedure Performed Yes Yes Yes -Type of Procedure Debridement Debridement Debridement -Clinical Debridement Subcutaneous Subcutaneous Subcutaneous -Tissue Removed Subcutaneous Subcutaneous Subcutaneous -Post Debridement (cm) - Length 2.3 2.0 15.0 -Post Debridement (cm) - Width 0.8 0.8 6.0 -Post Debridement (cm) - Depth 0.4 0.3 0.3 -Total Square (Post) (cm) 1.84 1.60 90.00 -Area of Debridement (cm) - Length 2.3 2.0 15.0 -Area of Debridement (cm) - Width 0.8 0.8 6.0 -Total Square (Area) (cm) 1.84 1.60 90.00 -Tunneling No No No -Undermining/Tunneling No No No -Circular Undermining No No No -Wound/Ulcer Outcome Not Healed Not Healed Not Healed -Ulcer Cleansing Rinsed/ Rinsed/ Rinsed/ Irrigated with Irrigated with Irrigated with Saline Saline Saline -Foul Odor after Cleansing No No No -Bioengineered Tissue No No No -Bleeding Controlled with Pressure Pressure Pressure -Treatment Response Procedure Procedure Procedure Tolerated Well Tolerated Well Tolerated Well -Offloading No No No -Debridement - Subq, 1st 20sq cm Yes Yes Yes -Debridement, SubQ, ea addt'l 20sq cm 4 or part thereof Pain Scale: 0-10 Numeric Is Patient Pain Free? Yes Yes Yes 07/11/21 07/18/21 13:41 14:24 Wound Center Nurse 2 #2 r lower leg cluster -Time #1- 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) -Time 13:41 14:25 -Correct Patient Yes Yes -Correct Side, Site, Position Yes Yes -Correct Procedure Yes Yes -Procedure Performed Yes Yes -Type of Procedure Debridement Debridement -Clinical Debridement Subcutaneous Subcutaneous -Tissue Removed Subcutaneous Subcutaneous -Post Debridement (cm) - Length 5.0 4.0 -Post Debridement (cm) - Width 1.5 1.0 -Post Debridement (cm) - Depth 0.2 0.2 -Total Square (Post) (cm) 7.50 4.00 -Area of Debridement (cm) - Length 5.0 4.0 -Area of Debridement (cm) - Width 1.5 1.0 -Total Square (Area) (cm) 7.50 4.00 -Tunneling No No -Undermining/Tunneling No No -Circular Undermining No No -Wound/Ulcer Outcome Not Healed Not Healed -Ulcer Cleansing Rinsed/ Rinsed/ Irrigated with Irrigated with Saline Saline -Foul Odor after Cleansing No No -Bioengineered Tissue No No -Bleeding Controlled with Pressure Pressure -Treatment Response Procedure Procedure Tolerated Well Tolerated Well -Offloading No No -Debridement - Subq, 1st 20sq cm Yes Yes -Debridement, SubQ, ea addt'l 20sq cm or part thereof Pain Scale: 0-10 Numeric Is Patient Pain Free? Yes Yes - Nurse 3 - General Ulcer D/C NN Start: 06/20/21 13:06 Freq: Status: Active Protocol: Activity Type Activity Date Activity User E-Sign Co-Sign Detail Recorded Client Recorded Date Recorded By Document 06/20/21 14:02 AK [id number] 06/20/21 14:03 AK Document 06/24/21 11:55 DL [id number] 06/24/21 12:00 DL Document 06/27/21 13:49 ML [id number] 06/27/21 13:50 ML Document 07/01/21 14:08 BMF [id number] 07/01/21 14:10 BMF Document 07/04/21 14:18 AK [id number] 07/04/21 14:18 AK Document 07/11/21 14:00 ML [id number] 07/11/21 14:01 ML Document 07/18/21 14:31 ML [id number] 07/18/21 14:31 ML 06/20/21 06/24/21 06/27/21 14:02 11:55 13:49 Wound Care Nurse 3 #1- 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) -Ulcer Cleansing Rinsed/ Soap and Water Rinsed/ Irrigated with Irrigated with Saline Saline -Foul Odor after Cleansing No -Negative Pressure Wound Therapy N/A -Primary Dressing Applied NonAdherent NonAdherent Promogran Contact Layer, Contact Layer, Promogran Promogran -Other Dressing adaptic -Primary Dressing Covered/Secured with Dry Gauze & Dry Gauze & Roll Gauze, Roll Gauze, Secured with Secured with Tape Tape -Other Covering -Promogran 0 1 1 -Silvercel Right -Lotion applied to leg before compression wrap -Multi-Layered Wrap Application Multi-Layer Multi-Layer Comp - Right ($ Comp - Right ($ ) ) -Tubular Bandage Double Layer -Size of Tubigrip Used Size E -Size E ($) 2 Treatment Response Procedure Tolerated Well Vital Signs Temperature (97.8 F-99.1 F) 96.8 F L Temperature Source Temporal Pulse Rate (60-100) 81 Pulse Location Monitor Respiratory Rate (12-18) 20 H Respiratory rate source Observation Oxygen Delivery Method Blood Pressure (90/60-120/80) 116/65 Blood Pressure Mean (mm Hg) 82 Source Monitor Position Blood Pressure Location Pain Scale: 0-10 Numeric Is Patient Pain Free? Yes Yes Yes WC - Visit Discharge Discharge Condition Stable Stable Ambulatory Status Ambulatory, Ambulatory, Crutches Crutches Transportation Private Auto Private Auto Medication Reconcilliation completed & Yes provided to patient/care provider Clinical Summary of Care Provided Yes 07/01/21 07/04/21 07/11/21 14:08 14:18 14:00 Wound Care Nurse 3 #1- 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) -Ulcer Cleansing Soap and Water Rinsed/ Rinsed/ Irrigated with Irrigated with Saline Saline -Foul Odor after Cleansing No No No -Negative Pressure Wound Therapy N/A -Primary Dressing Applied NonAdherent Silvercel Silvercel Contact Layer, Promogran -Other Dressing ABD -Primary Dressing Covered/Secured with Dry Gauze & Dry Gauze & Dry Gauze & Roll Gauze, Roll Gauze, Roll Gauze, Secured with Secured with Secured with Tape,Other Tape Tape -Other Covering ABD -Promogran 1 -Silvercel 1 1 Right -Lotion applied to leg before No compression wrap -Multi-Layered Wrap Application Multi-Layer Comp - Right ($ ) -Tubular Bandage Double Layer -Size of Tubigrip Used Size E -Size E ($) 2 Treatment Response Procedure Tolerated Well Vital Signs Temperature (97.8 F-99.1 F) 97.6 F L Temperature Source Temporal Pulse Rate (60-100) 83 Pulse Location Monitor Respiratory Rate (12-18) 16 Respiratory rate source Observation Oxygen Delivery Method Room Air Blood Pressure (90/60-120/80) 138/76 H Blood Pressure Mean (mm Hg) 96 Source Monitor Position Sitting Blood Pressure Location Left Arm Pain Scale: 0-10 Numeric Is Patient Pain Free? Yes Yes Yes WC - Visit Discharge Discharge Condition Stable Stable Stable Ambulatory Status Ambulatory Ambulatory, Ambulatory Crutches Transportation Private Auto Private Auto Medication Reconcilliation completed & Yes No provided to patient/care provider Clinical Summary of Care Provided Yes Yes 07/18/21 14:31 Wound Care Nurse 3 #1- 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) -Ulcer Cleansing Rinsed/ Irrigated with Saline -Foul Odor after Cleansing -Negative Pressure Wound Therapy -Primary Dressing Applied Silvercel -Other Dressing -Primary Dressing Covered/Secured with Dry Gauze,Dry Gauze & Roll Gauze,Secured with Tape -Other Covering -Promogran -Silvercel 1 Right -Lotion applied to leg before compression wrap -Multi-Layered Wrap Application -Tubular Bandage -Size of Tubigrip Used -Size E ($) Treatment Response Vital Signs Temperature (97.8 F-99.1 F) Temperature Source Pulse Rate (60-100) Pulse Location Respiratory Rate (12-18) Respiratory rate source Oxygen Delivery Method Blood Pressure (90/60-120/80) Blood Pressure Mean (mm Hg) Source Position Blood Pressure Location Pain Scale: 0-10 Numeric Is Patient Pain Free? Yes WC - Visit Discharge Discharge Condition Ambulatory Status Transportation Medication Reconcilliation completed & provided to patient/care provider Clinical Summary of Care Provided Assessment/Plan Assessment/Plan (1) Laceration without foreign body, right lower leg, initial encounter: CODE(S): S81.811A - Laceration without foreign body, right lower leg, initial encounter PLAN: Debridement performed today in clinic as annotated above. Silver c ell applied today with double layer Tubigrip's. At home wound-care instructions: Silver cell cover with gauze and tape change daily. Compression: Double layer Tubigrip's Off-loading: The patient was instructed to avoid pressure and friction on the affected areas. Reposition every 2 hours at minimum. Avoid prolonged standing and/or dangling of legs. When seated, feet should be elevated at chest level. Frequent ambulation is encouraged. Diet: Patient encouraged to increase protein intake while taking caution to avoid high carbohydrate and/or sugar intake. Patient is a non-smoker Labs/cultures/imaging: Cultures recollected last week and grew MRSA and anaerobes, patient was placed on doxycycline and Augmentin which she is tolerating. Routine baseline lab work held. Vascular studies held. Follow-up: Return to clinic in 1 week for re-evaluation. She will continue following up with her business employment specialist Dr. William as well, return sooner or report to the emergency room should symptoms worsen, or new symptoms arise. This note was generated with [employer] software. It may contain incorrect words, spelling, and punctuation that were not noted in checking the note before signing. I have spent 25 minutes today reviewing labs, records, and history. Time includes coordinating care, interpretation of tests, and counseling the patient/family. This also includes time I spent with the patient for exam, treatment plan, and education as well as documenting clinical information in the electronic health record.
== END 2021-07-18 23:59 | disposition home or self-care (01) ==
LOC: WC 13:45
PROVIDERS: PCP Family Medicine; Visit Provider Nurse Practitioner Family
DX: S81.811D Laceration without foreign body, right lower leg, subsequent encounter (principal); W31.89XD Contact with other specified machinery, subsequent encounter; Y99.0 Civilian activity done for income or pay
CPT/HCPCS: 11042; 11045; 29581; 87070; 87075; 87077; 87186; 87205

== ENCOUNTER 2021-08-01 13:30 | Outpatient (RCR) | payer OTHER, SELFPAY ==
[2021-07-19 00:35] VITALS: BP 110/70; PULSE 68; RESP 16; TEMP 36.1; BMI 25.2
[2021-08-01 13:31] VITALS: BP 109/81; PULSE 85; TEMP 35.9; BMI 25.2
--- NOTE | 2021-08-02 14:24 | PCM.WC.PN ---
History of Present Illness Date of Service: 08/01/21 Chief Complaint: Right lower extremity wound History of Wound: This is a 60-year-old female who presents to the wound healing center today with a right lower extremity wound. This is a workers comp case as it occurred at work. On March 21, 2021, the patient was pinned between a tow motor and her right leg against the wall causing a laceration. She went to the emergency department at [facility] where orthopedics Dr. William was consulted and he reviewed her imaging washed out the wound and repaired in the emergency department. She was discharged home with Xeroform for wound care and crutches and a walking boot. She was also given Keflex and pain medication and was referred to the wound healing center. Since then, the patient states that her sutures have been removed and that she has completed her entire course of Keflex. She denies any systemic or localized signs of infection at this time but is getting moderate amounts of drainage which is serosanguineous. She has not been utilizing any compression. She states that there are a few areas of blackened areas on the wound but they seem to be improving in size. Denies any other aggravating relieving factors. She does follow-up with her orthopedic next week. Past medical, family, and social history reviewed and not pertinent to the current visit and all other systems reviewed and negative with exception of those listed above. Progress of Wound: Patient's right lower extremity wound is completely healed without any signs of infection at this time. She will be discharged from the wound healing center and from a wound standpoint has no restrictions. Objective Data Objective Data Vital Signs: Vital Signs Temp Pulse Resp BP 96.7 F L 85 16 109/81 H 08/01/21 13:31 08/01/21 13:31 07/19/21 00:35 08/01/21 13:31 Weight: 129 lb Body Mass Index (BMI) 25.2 Charges/Coding Visit Charges Office Visits / Consults: 68605 OV L3 Est Physical Exam Const alert, oriented x3, no apparent distress, healthy appearing and well nourished General Appearance: cooperative Exam Limitations: no limitations HEENT normocephalic Head and Scalp: normal to inspection Mouth: oral and palatal mucosa normal Eyes General Eye: normal appearance of both eyes Resp normal respiratory effort, normal air movement and no use of accessory muscles Effort and Inspection: able to speak in complete sentences Auscultation: clear to auscultation bilaterally Cardio regular rate, regular rhythm, S1 normal heart sound, S2 normal heart sound, no murmurs and peripheral pulses 2+ throughout Palpation: normal PMI Rate: regular rate Heart Sounds: S1 normal and S2 normal GI normal to inspection, nondistended, normoactive bowel sounds, soft to palpation, non-tender and non-distended Palpation: soft Extremity normal to inspection and full ROM General Extremity: normal exam except as noted Skin Skin Narrative: Right lower extremity, generalized edema, wound has healed with no erythema or warmth or streaking noted at this time. Neuro oriented x3 and moves all extremities Sensorium / Orientation: awake, alert, oriented to person, oriented to place and oriented to time Psych mental status grossly normal, thought process normal and denies hallucinations Appearance: grossly normal Attitude: calm Activity / Motor Behavior: appropriate eye contact Speech: normal speech Thought Process: normal thought process Thought Content: normal thought content Attention / Concentration: attention grossly intact Insight: insight good Judgement: judgement good Assessment/Plan Assessment/Plan (1) Laceration without foreign body, right lower leg, initial encounter: CODE(S): S81.811A - Laceration without foreign body, right lower leg, initial encounter PLAN: No debridement indicated today, wound is healed, may utilize unscented lotion for the dry skin areas and also bilateral double layer Tubigrip for compression and advance as tolerated to regular compression stockings at 20 to 30 mmHg. Off-loading: The patient was instructed to avoid pressure and friction on the affected areas. Reposition every 2 hours at minimum. Avoid prolonged standing and/or dangling of legs. When seated, feet should be elevated at chest level. Frequent ambulation is encouraged. Diet: Patient encouraged to increase protein intake while taking caution to avoid high carbohydrate and/or sugar intake. Patient is a non-smoker Follow-up: Patient will be released from the wound healing center today and from a wound care perspective has no restrictions. This note was generated with [employer] dictation software. It may contain incorrect words, spelling, and punctuation that were not noted in checking the note before signing. I have spent 25 minutes today reviewing labs, records, and history. Time includes coordinating care, interpretation of tests, and counseling the patient/family. This also includes time I spent with the patient for exam, treatment plan, and education as well as documenting clinical information in the electronic health record.
== END 2021-08-01 14:09 | disposition home or self-care (01) ==
LOC: WC 13:30
PROVIDERS: PCP Family Medicine; Visit Provider Nurse Practitioner Family
DX: Z09 Encounter for follow-up examination after completed treatment for conditions other than malignant neoplasm (principal)
CPT/HCPCS: 99213; G0463

== ENCOUNTER → 2021-10-22 | Outpatient (CLI) | payer BC, SELFPAY ==
[2021-10-22 12:52] LABS: ALB/GLOB Ratio 0.9 RATIO (0.9-2.4); AST(SGOT) 18 U/L (15-37); Alanine Aminotransfer ALT/SGPT 22 U/L (13-56); Albumin, Serum 3.5 g/dL (3.2-5.0); Alkaline Phosphatase 59 U/L (45-117); Anion Gap 3 (5-15); BUN 15 mg/dL (7-18); BUN/Creat Ratio 21.5 RATIO (10-20); Calcium,Total 9.1 mg/dL (8.5-10.1); Chloride 108 mmol/L (98-107); Cholesterol 191 mg/dL (200); EST Glomerular Filtration Rate 91 mL/min (>60); Est Glom Filt Rate - Afr Amer 110 mL/min (>60); Globulin 3.9 g/dL (2.2-4.2); Glucose 97 mg/dL (74-106); High Density Lipoprotein 61 mg/dL; Protein, Total 7.4 g/dL (6.4-8.2); Sodium Level 141 mmol/L (136-145); Thyroid Stim Hormone (TSH) 0.97 uIU/mL (0.358-3.74); Triglycerides 127 mg/dL; Very Low Density Lipoprotein 25 mg/dL (5-40)
[2021-10-29 10:30] LABS: HPV Reflexed? NOT INDICATED
== END | disposition home or self-care (01) ==
LOC: BIMLAB 10:52
PROVIDERS: PCP Family Medicine; Visit Provider Family Medicine
DX: Z01.419 Encounter for gynecological examination (general) (routine) without abnormal findings (principal); E89.0 Postprocedural hypothyroidism; E78.5 Hyperlipidemia, unspecified
CPT/HCPCS: 36415; 80053; 80061; 84443; 88175; G0145

== ENCOUNTER → 2023-06-25 | Outpatient (CLI) | payer BC, SELFPAY ==
[2023-06-30 20:08] LABS: HPV APTIMA, High Risk Negative (Negative)
== END | disposition home or self-care (01) ==
LOC: LABSPEC 09:53
PROVIDERS: PCP Family Medicine; Visit Provider Family Medicine
DX: Z01.419 Encounter for gynecological examination (general) (routine) without abnormal findings (principal)
CPT/HCPCS: 87624; 88142